=== PATIENT | female | born 1945 | race Caucasian/White ===

== ENCOUNTER → 2017-07-02 11:00 | Outpatient (CLI) | payer MEDICARE, OTHER, SELFPAY ==
[2017-07-02 09:49] LABS: Anion Gap 7 (5-15); BUN 16 mg/dL (7-18); BUN/Creat Ratio 22.3 RATIO (10-20); Calcium,Total 8.7 mg/dL (8.5-10.1); Chloride 111 mmol/L (98-107); Cholesterol 219 mg/dL (200); Creatinine, Serum 0.72 mg/dL (0.55-1.02); EST Glomerular Filtration Rate 85 mL/min (>60); Est Glom Filt Rate - Afr Amer 103 mL/min (>60); Glucose 95 mg/dL (74-106); High Density Lipoprotein 85 mg/dL; Sodium Level 145 mmol/L (136-145); Triglycerides 72 mg/dL; Very Low Density Lipoprotein 14 mg/dL (5-40)
== END ==
PROVIDERS: Family Provider Family Medicine; PCP Family Medicine; Visit Provider Family Medicine
DX: I10 Essential (primary) hypertension (principal)
CPT/HCPCS: 36415; 80048; 80061

== ENCOUNTER 2017-07-04 13:30 | Outpatient (RCR) | payer MEDICARE, OTHER, SELFPAY ==
--- NOTE | 2017-04-28 15:34 | HP.PTEVAL_ITS ---
Patient's Visit Information ABIEL HILL is a 72 year old F referred to Physical Therapy by Nj Meraz with a diagnosis of R knee pain. Date of Evaluation: 04/26/17 Physical Therapist: Bolivar Rutherford - Visit Plan Frequency: 2x /Week Duration: 4 Weeks Plan: Start with US to medial compartment of knee, HS stretching, light joint mobs into ext. OKC strengthening of quad,glute med, core, HS. Progress to CKC as tolerated. - Subjective Subjective: Pt. is here today for her initial evaluation with diagnosis of R knee pain. She is a plesant 72 y.o. female who reports having increased R knee pain with no mechanism of injury, starting a couple a months ago. She was put on an anti inflammatory which has been helping. Pt. denies N/T in the RLE and no issues at night. Pt. reports increased pain with stairs, walking, and standing in irena positioning for longer periods of time. Increased pain: walking , standing, stairs, being knee, all weight bearing activities. Decrease pain: sitting, offloading, icing, injection. Pt. has had xray- showing moderate degeneration throughout medial and patellofemoral compartments. Pt. has had her L knee replaced and is trying to avoid having to do the same on the R side. She has not trialed any exercises as of yet, but did recieve a recent injection. She is hopeful to reduce symptoms in order to get back to activities with grandchildren and recreational walking without issues. - Pain R knee Pain Intensity (Out of 10): 0 Pain Intensity Range: 2 - Objective POSTURE: Pt. lacks R knee TKE in stance. Pt. has slight increase in R knee valgum in stance. Pt. has increased L wt. shift in stance. Pt. has normal iliac crest heights. PALPATION: Pt. has slight increase in medial joint line pain to palpation, none at lateral joint line. Pt. has slight pain at medial popliteal fossa and superior to patella. NEUROLOGICAL: Pt. has normal sensation to light and sharp touch of bilateral LEs. Pt. has 2+ achilles and patellar DTR bilaterally. PT. is able to rise on heels and toes without visible weakness, but does to HR to stabilize. ROM: R knee: 0-10-122deg. L knee 0-0-128deg. Pt. has slight pain with over pressure in flexion and extension of R knee. Pt. has firm end feel. Pt. has tight HS bilaterally 78deg on L and 73deg on R. MMT: LLE - ankle 5/5 throughout; knee- ext 5-/5, flexion 4+/5; hip- flexion 4/5, abd 4/5 , ext 4/5. RLE- ankle 5/5 throughout; knee- ext 4+/5, flexion 4/5; hip- flexion 4/5, abd 4/5, ext 4/5. Core strength- poor. GAIT: Pt. lacks TKE on RLE during stance phase. Pt. has normal knee flexion throughout cycle. Pt. has increased L lateral lean during gait. Pt. has slight R sided antalgic pattern. STAIRS: Pt is able to negotiate with step to pattern with loading LLE with HR, increased pain with loading RLE. - Special Tests R Knee Yung - Meniscus: Negative R Knee Michela - ACL: Negative R Knee Anterior Drawer - ACL: Negative R Knee Posterior Drawer - PCL: Negative R Knee Valgus - MCL: Negative R Knee Varus - LCL: Negative R Knee Patellar Grind - PFS: Positive - Goals Goal 1:: Pt. to be I with HEP. Goal Time Frame: 4-6 Weeks Goal 2:: Pt. to have increased R knee ROM to 0-0-120deg allowing for increased tolerance to all functional mobility. Goal Time Frame: 4-6 Weeks Goal 3:: Pt. to have 0-2/10 pain with all functional mobility allowing for increased quality of life. Goal Time Frame: 4-6 Weeks Goal 4:: Pt. to have increased RLE strength by 1/2 grade of all effected musculature reducing stress applied to R knee with all functional mobility. Goal Time Frame: 4-6 Weeks Goal 5:: Pt. to negotiate steps with reciprocal pattern with 1 HR with 0-1/10 pain allowing for increased independence in home. Goal Time Frame: 4-6 Weeks - Rehabilitation Potential Physical Therapy Diagnosis: Pt. has signs and symptoms consistent with R knee with most likely OA being the cause. Pt. has hypomobity, weakness, and difficulty with gait secondary to R knee pain. She would benefit from PT to increase ROM, improve strength and decrease pain allowing for increased tolerance to all functional mobility. Rehabilitation Potential: Good - Anticipated Interventions Patient/Client Instruction: Educate patient on: Condition, Plan of Care, Risk Factors, Benefits of Fitness Program For the Purpose of:: To improve safety, To improve health and function, To foster healthy habits, To improve decision making, To facilitate caregiver knowledge, To improve self management, To prevent re-injury, To improve ability to perform tasks related to life management, To improve tolerance to ADL's Therapeutic Exercise to Include: Strength training, Power training, Endurance training, Balance training, Body mechanics, Postural training, Flexibilty training, Gait and locomotor training, Passive ROM, Active ROM For the Purpose of:: To decrease pain, To increase ROM, To improve nutrient delivery to tissue, To increase oxygenation perfusion, To improve muscle performance and motor function, To improve ability to perform ADL's, To improve performance and independence with ADL's IF ES: Yes Cryotherapy (ice pack, ice massage): Yes Thermo therapy (hot pack): Yes Ultrasound (thermal/non thermal): Yes For the Purpose of:: To decrease pain, To decrease swelling/inflammation, To increase ROM Thank you for the opportunity to evaluate your patient. For Medicare and Medicare HMO plans, please review the plan of care and approve it. It will need to be FAXED BACK to us at [phone] for Medicare purposes. Please let me know if there are questions or concerns regarding this plan of care. Physician Signature: Date:
--- NOTE | 2017-05-30 07:47 | HP.PTREVAL_ITS ---
Nj Meraz, It has been my pleasure to treat ABIEL HILL over the last 8 visits for R knee pain. Please see the progress note below for an update on the physical therapy plan of care! Subjective: Pt. reports I am feeling really good right now, I think the pool really helped out. Pt. reports she is getting comfortable with pool exercises , but is not totally independent with them. Pt. reports decreased pain while working and walking as well. Objective/Function: ROM- 0-0-119deg improving. MMT- RLE- ankle 5/5 throughout; knee- ext 5-/5, flexion 4+/5; hip- flexion 4+/5, abd 4/5, ext 4+/5. GAIT: Pt. has improved pattern, symmetrical step length, decreased R lateral lean during R stance phase. Pt. has improved heel strike with initial contact and has TKE during stance phase. STAIRS: Pt. is able to complete with 1 HR with reciprocal pattern, mild increased NW with descending during R stance phase- improved overall. Plan Plan: Pt. to have 3-4 move visits in pool to complete independence with current program, but alos show her how to progress exercises once able to, allowing for increase progression once done with PT. Goals Goal 1:: Pt. to be I with HEP. Goal Time Frame: 4-6 Weeks Goal Progress: Progressing Goal 2:: Pt. to have increased R knee ROM to 0-0-120deg allowing for increased tolerance to all functional mobility. Goal Time Frame: 4-6 Weeks Goal Progress: Progressing Goal 3:: Pt. to have 0-2/10 pain with all functional mobility allowing for increased quality of life. Goal Time Frame: 4-6 Weeks Goal Progress: Progressing Goal 4:: Pt. to have increased RLE strength by 1/2 grade of all effected musculature reducing stress applied to R knee with all functional mobility. Goal Time Frame: 4-6 Weeks Goal Progress: Progressing Goal 5:: Pt. to negotiate steps with reciprocal pattern with 1 HR with 0-1/10 pain allowing for increased independence in home. Goal Time Frame: 4-6 Weeks Goal Progress: Progressing Anticipated Interventions Patient/Client Instruction: Educate patient on: Condition, Plan of Care, Risk Factors, Benefits of Fitness Program For the Purpose of:: To improve safety, To improve health and function, To foster healthy habits, To improve decision making, To facilitate caregiver knowledge, To improve self management, To prevent re-injury, To improve ability to perform tasks related to life management, To improve tolerance to ADL's Therapeutic Exercise to Include: Strength training, Power training, Endurance training, Balance training, Body mechanics, Postural training, Flexibilty training, Gait and locomotor training, Passive ROM, Active ROM For the Purpose of:: To decrease pain, To increase ROM, To improve nutrient delivery to tissue, To increase oxygenation perfusion, To improve muscle performance and motor function, To improve ability to perform ADL's, To improve performance and independence with ADL's IF ES: Yes Cryotherapy (ice pack, ice massage): Yes Thermo therapy (hot pack): Yes Ultrasound (thermal/non thermal): Yes For the Purpose of:: To decrease pain, To decrease swelling/inflammation, To increase ROM Please do not hesitate to contact me at [phone] by phone or Fax: if you have questions or concerns regarding this new plan of care! Sincerely, Bolivar Rutherford
--- NOTE | 2017-07-05 11:36 | HP.PTDCSUM ---
HP - PT D/C Summary It has been my pleasure to treat ABIEL HILL under orders from Nj Meraz, for the diagnosis of R knee pain for a total of 13 visit(s). Discharge Date: 07/04/17 Please see the following information for a summary of their discharge status. - Subjective Subjective: Pt. reports I am doing really well. Pt. reports being 95% better. She is compliant with her HEP in pool without issues. - Pain R knee Pain Intensity (Out of 10): 0 - Overall Improvement % Improvement: 95 - Objective Objective/Function: ROM- R knee 0-2-124deg. Mild increase in symptoms with end range ext over pressure. MMT- RLE- ankle 5/5 throughout; knee- ext 5-/5, flexion 5-/5; hip- flexion 5-/5, abd 4/+/5, ext 5-/5. GAIT: Pt. ambulates without AD without LOB. Pt. has lack of TKE during stance phase on RLE, but has normal knee flexion during swing phase of gait. STAIRS: Pt is able to negotiate with 1 HR without LOB and reciprocal pattern, but does have a little hip hike on R side with R loaded phase during descending. No pain noted. Pt. is independent with current HEP on land and pool. Pt. is pleased with PT. - Goals Goal 1:: Pt. to be I with HEP. Goal Progress: Goal Met Goal 2:: Pt. to have increased R knee ROM to 0-0-120deg allowing for increased tolerance to all functional mobility. Goal Progress: Goal Met Goal 3:: Pt. to have 0-2/10 pain with all functional mobility allowing for increased quality of life. Goal Progress: Goal Met Goal 4:: Pt. to have increased RLE strength by 1/2 grade of all effected musculature reducing stress applied to R knee with all functional mobility. Goal Progress: Goal Met Goal 5:: Pt. to negotiate steps with reciprocal pattern with 1 HR with 0-1/10 pain allowing for increased independence in home. Goal Progress: Goal Met - Plan Plan: Pt. to be DC to HEP both land and pool at this point in time. - D/C Information Discharge Comments: Pt. will be DC from PT at this point in time. Pt. has met all goals and has progressed very well. She did much better with aquatic therapy compared to land PT. 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 Pt. to complete HEP on own, as she is independent in pool. Pt. will be DC to HEP and back to primary care physician at this point in time. If there are questions or concerns regarding this patient's physical therapy, please feel free to call me at [phone]. Thank you for the referral of this patient. Sincerely, Bolivar Rutherford
== END 2017-07-04 19:00 | disposition home or self-care (01) ==
LOC: PT 13:30
PROVIDERS: Family Provider Family Medicine; PCP Family Medicine; Visit Provider Family Medicine
DX: M25.561 Pain in right knee (principal)
CPT/HCPCS: 97035; 97110; 97113; 97161; 97530

== ENCOUNTER 2017-07-27 18:27 | Emergency (ER) | payer MEDICARE, OTHER, SELFPAY ==
[2017-07-27 18:28] VITALS: BP 150/90; PULSE 59; RESP 16; TEMP 35.8; O2SAT 98; BMI 32.1
--- NOTE | 2017-07-27 19:29 | CT_ITS ---
STUDY: CT CERVICAL SPINE WITHOUT CONTRAST REASON FOR EXAM: Female, 72 years old. Fall. RADIATION DOSAGE (If Supplied By Facility): CTDIvol = ( 19.08 ) mGy, DLP = ( 372.78 ) mGycm TECHNIQUE: High resolution transaxial imaging was performed without contrast material. Sagittal and coronal images were reconstructed. Individualized dose optimization techniques were used for this CT. COMPARISON: None FINDINGS: No definite acute fracture/dislocation. The cervical junction is intact. C1-C2 articulation is intact. Reversal of curvature. There is normal alignment. Facet joints are intact at all levels bilaterally. No jumped facets. Multilevel degenerative disc disease seen. Multilevel loss of disc height. Multilevel anterior and posterior marginal osteophytes and disc bulges. Multilevel neural foraminal narrowing. Findings especially prominent at C5-C6 and C6-C7. Visualized paraspinal soft tissues and structures are unremarkable. CT/Spine Cervical without Contras IMPRESSION: There is no definite acute fracture/dislocation. Degenerative changes. Electronically Signed: Mk Rodriguez MD at 20:19 EDT , Service support ,
--- NOTE | 2017-07-27 19:29 | CT_ITS ---
STUDY: CT BRAIN WITHOUT CONTRAST REASON FOR EXAM: Female, 72 years old. Fall at home. Hit head. Dizziness. RADIATION DOSAGE (If Supplied By Facility): CTDIvol = ( 44.99 ) mGy, DLP = ( 745.49 ) mGycm TECHNIQUE: Transaxial CT imaging of the brain was performed without administration of intravenous contrast material. Individualized dose optimization techniques were used for this CT. COMPARISON: 05/09/2007. FINDINGS: Normal soft tissue structures. Normal calvarium. Normal size ventricles and extra-axial spaces for the patient's age. Normal white matter tracts of the cerebral hemispheres. Normal basal ganglia and thalami. Normal brainstem. Normal cerebellum. There is no intracranial hemorrhage. There are no findings of an acute ischemic infarction. Normal visualized paranasal sinuses. CT/Brain/Head without Contrast IMPRESSION: Normal unenhanced CT scan of the brain. Electronically Signed: Mk Rodriguez MD at 20:21 EDT , Service support ,
--- NOTE | 2017-07-27 19:46 | RAD_ITS ---
STUDY: X-RAY - RIGHT SHOULDER REASON FOR EXAM: Female, 72 years old. Fall. Pain. TECHNIQUE: 5 view(s) of the shoulder. COMPARISON: None. FINDINGS: Normal glenohumeral articulation. Normal acromioclavicular joint. Normal acromion. Normal humeral head and visualized proximal humerus. The soft tissue structures are unremarkable. There is no demonstrated fracture. Normal visualized pulmonary apex. RAD/Shoulder min 2 Views IMPRESSION: Normal x-ray examination of the shoulder. Electronically Signed: Mk Rodriguez MD at 20:27 EDT , Service support ,
[2017-07-27] MEDS: Diphth,Pertuss(Acell),Tet Vac 0.5 ML Vial IM (20:05)
[2017-07-27 20:47] VITALS: BP 131/83; PULSE 58; RESP 16; O2SAT 98
--- NOTE | 2017-07-27 21:05 | ED.VISSUMM ---
- ER Visit Summary Date of Service: 07/27/17 Chief Complaint: Fall with head injury History of Present Illness: The patient is a 72 F presenting for evaluation secondary to a fall and head injury. Patient states that she was putting in solar powered walkway lites today, she was trying to push one down into the ground a little bit further, it snapped and she fell onto her head. Patient denies that there was loss of consciousness. She complains of pain over the right side of her head and her right shoulder. She is not on any sort of anticoagulants. Patient states that her tetanus status is unknown. Physical Examination: Primary survey: Airway is patent, breath sounds equal bilateral, central peripheral pulses 2+ and symmetric, GCS 15 out of 15. Vitals within normal limits. Secondary survey: General: Well-nourished well-developed no acute distress Head: Normocephalic abrasions noted over the right eyebrow and temporal region without any evidence of laceration Eyes: PERRLA, EOMI ENT: TMs clear no hemotympanum no drainage Neck: Nontender full range of motion, no step-offs noted Heart: Regular rate and rhythm no murmurs Lungs: Respirations nondistressed, lung sounds clear to auscultation bilaterally, chest nontender, normal chest excursion bilaterally Abdomen: Soft nontender nondistended normal bowel sounds no palpable abdominal masses Back: Nontender no step-offs noted Extremities: Pain with palpation and range of motion of the right shoulder. No evidence of step-offs deformity or crepitus. Normal distal pulses normal distal sensation Skin: Normal color no trauma Neuro: Alert and oriented ?4, GCS 15 out of 15, no lateralizing neurological deficits. Test Results: CT head negative, CT cervical spine negative, x-ray right shoulder negative Emergency Department Course and Treatment: Patient presented secondary to a mechanical fall. Primary and secondary surveys showed only head injury and shoulder injury. Radiographs found to be negative. Patient's wounds were cleansed, her tetanus status was updated. There is no indication for suture repair at this time. Patient was discharged with conservative management. Disposition: Discharge Impression: 1. Right temporal abrasion 2. Right shoulder contusion This note was generated with [employer] dictation software. It may contain incorrect words, spelling, and punctuation that were not noted in review of the chart prior to signing ED Disposition - Plan for ED Patient: Disposition: Home or Assisted Living Chief Complaint: Fall Diagnosis: Fall Instructions: ED Mechanical Fall Referrals: Nj Meraz MD [Primary Care Provider] - As Needed
== END 2017-07-27 21:31 | disposition home or self-care (01) ==
PROVIDERS: Emergency Provider Emergency Medicine; Family Provider Family Medicine; PCP Family Medicine
DX: S00.81XA Abrasion of other part of head, initial encounter (principal); S40.011A Contusion of right shoulder, initial encounter; W19.XXXA Unspecified fall, initial encounter; Y93.H2 Activity, gardening and landscaping; Y92.9 Unspecified place or not applicable; Y99.9 Unspecified external cause status; Z79.899 Other long term (current) drug therapy; Z23 Encounter for immunization
CPT/HCPCS: 70450; 72125; 73030; 90715; 99282

== ENCOUNTER 2018-05-27 16:03 | Emergency (ER) | payer MEDICARE, OTHER, SELFPAY ==
[2018-05-27 16:05] VITALS: BP 139/84; PULSE 70; RESP 16; TEMP 36.2; O2SAT 95; BMI 32.3
--- NOTE | 2018-05-27 17:22 | CT_ITS ---
STUDY: CT ABDOMEN AND PELVIS WITH CONTRAST REASON FOR EXAM: Female, 73 years old. Nausea and vomiting and diarrhea RADIATION DOSAGE (If Supplied By Facility): CTDIvol = ( 17.84 ) mGy, DLP = ( 1135.50 ) mGycm TECHNIQUE: Transaxial images were obtained from the dome of the diaphragm to the symphysis pubis without oral contrast. 100 ml of Isovue 300 contrast was administered. Sagittal and coronal images were reconstructed. Individualized dose optimization techniques were used for this CT. COMPARISON: February 26, 2016 FINDINGS: There is mild diffuse interstitial thickening and atelectasis within the dependent portion of both lungs.. The visualized portions of the heart are within normal limits. Normal liver. Normal gallbladder and extrahepatic biliary system. Normal spleen. Normal pancreas. Normal bilateral adrenal glands. No evidence for renal obstruction or ureteral calculus. Tiny simple cortical cyst in left kidney. Normal visualized stomach. Normal small intestine. Mild diverticular changes in the sigmoid colon without evidence for acute diverticulitis. Appendix not visualized which may be consistent with prior appendectomy. Atherosclerotic changes of the aorta without evidence for aneurysm.. Normal inferior vena cava. Normal retroperitoneum. Normal urinary bladder. There is a fluid-filled density in the right groin possibly representing lymphocele or resorbing seroma. This has decreased in size since prior exam. Tiny fat-containing umbilical hernia. Lumbar spine demonstrates mild spondylosis. Grade 1 spondylolisthesis at L5-S1 CT/Abdomen/Pelvis WITH Contrast IMPRESSION: No acute abnormalities. Specifically, no evidence for small bowel obstruction Mild diverticular changes in the sigmoid colon without evidence for acute diverticulitis Electronically Signed: Ang Figueroa MD at 20:24 EST , Service support ,
--- NOTE | 2018-05-27 17:23 | ED.VISSUMM ---
- ER Visit Summary Date of Service: 05/27/18 Chief Complaint: Abdominal pain History of Present Illness: The patient is a 73 F presenting with abdominal pain. Patient states that this started on Saturday. She initially had nausea, vomiting, diarrhea. She denies blood in her stool or emesis. She states the vomiting and diarrhea has slowed down but she continues to not feel well and has had abdominal pain. She has chills with no fever. She was seen by her primary care physician today and sent to the ED for further evaluation. Physical Examination: Vitals are stable. Patient is afebrile. Alert no acute distress. HEENT exam is unremarkable. Neck is supple. Lungs are clear and equal bilaterally. Heart is regular rate and rhythm. Abdomen is soft right lower quadrant tenderness with no rebound or guarding Extremities are unremarkable. Skin is warm and dry. No focal neurologic deficit. Remainder of exam is unremarkable. Emergency Department Course and Treatment: Patient was given IV fluids, Zofran. CBC, chemistries unremarkable. Liver lipase are normal. Urinalysis unremarkable. CT abdomen pelvis shows no acute abnormalities. Specifically, no evidence for small bowel obstruction. Mild diverticular changes in the sigmoid colon without evidence for acute diverticulitis. On reevaluation, patient is feeling improved. Repeat abdominal exam is soft and nontender with no rebound or guarding. She is given prescription for Zofran. She is able to tolerate p.o. in the emergency department. She will follow-up with her primary care physician. She is advised signs and symptoms for which to return to the ED. Disposition: Discharge home Impression: Abdominal pain; vomiting diarrhea This note was generated with [employer] dictation software. It may contain incorrect words, spelling, and punctuation that were not noted in review of the chart prior to signing ED Disposition - Plan for ED Patient: Chief Complaint: Nausea/Vomiting/Diarrhea Instructions: ED Vomiting Diarrhea Nonspecific Ad Prescriptions: Ondansetron [Zofran Odt] 4 mg PO Q8H PRN PRN #10 tablet PRN Reason: Nausea Referrals: Nj Meraz MD [Primary Care Provider] -
[2018-05-27] MEDS: Ondansetron 4 MG/2 ML Vial IV (17:50)
[2018-05-27 17:55] VITALS: BP 132/73; PULSE 56; RESP 16; TEMP 36.3; O2SAT 94
[2018-05-27 18:03] LABS: Bacteria 0 SEEN /hpf (None Seen); Mucous, Urine 0 SEEN /hpf (<or=2+); Red Blood Cells-Urine 0 SEEN /hpf (0-5)
[2018-05-27 18:07] LABS: Absolute Lymphocyte Count 1.61 X10^3/ul (0.83-4.51); Absolute Neutrophil Count 2.5 X10^3/uL (2.0-7.7); Basophil# 0.01 X10^3/uL; Basophil% 0.2 % (0-1); Hematocrit 40.7 % (37-47); Lymphocyte # 1.61 X10^3/ul (4.0); Lymphocyte % 32.5 % (19-41); Mean Corp Hgb Conc 31.9 g/gl (32-36); Mean Corpuscular Hgb 28.6 pg (27.0-32.0); Mean Corpuscular Volume 89.5 fL (81-99); Mean Platelet Vol. 9.9 fl (6.2-12.0); Monocyte# 0.59 X10^3/uL; Monocyte% 11.9 % (0-10); Neutrophil # 2.53 X10^3/uL (2.7-7.7); Neutrophil % 51.2 % (47-70); Platelet Count 208 K/mm3 (150-450); RBC Distribution Width CV 13.9 % (11.6-14.6); RBC Distribution Width SD 45.5 fl (35.1-43.9); Red Blood Count 4.55 M/mm3 (4.2-5.4)
[2018-05-27 18:10] LABS: POSITIVE COUNT NO; POSITIVE DIFFERENTIAL NO; POSITIVE MORPHOLOGY NO
[2018-05-27 18:14] LABS: Color, Urine Yellow (Yellow); Glucose, Dipstick Normal (Normal); Ketone-Dipstick Negative (Negative); Leukocyte Esterase-Dipstick 100 /ul (Negative); Nitrite-Dipstick Negative (Negative); Occult Blood-Urine Negative /ul (Negative); Protein-Dipstick 15 mg/dl (Negative); Specific Gravity, Urine 1.025 (1.002-1.030); Urine Bilirubin Dipstick Negative (Negative); Urine Clarity Clear (Clear); Urine Urobilinogen 1 mg/dl (Normal)
[2018-05-27 18:23] LABS: Calcium Oxalate Crystals Ur 1+ /hpf (<or=2+); Squamous Epithelial Cells - UA 0-5 SEEN /hpf (5-10); White Blood Cells 0-5 SEEN /hpf (0-5)
[2018-05-27 18:29] LABS: AST(SGOT) 18 U/L (15-37); Alanine Aminotransfer ALT/SGPT 23 U/L (13-56); Albumin, Serum 3.5 g/dL (3.2-5.0); Alkaline Phosphatase 78 U/L (45-117); Anion Gap 5 (5-15); BUN 14 mg/dL (7-18); BUN/Creat Ratio 17.5 RATIO (10-20); Chloride 108 mmol/L (98-107); EST Glomerular Filtration Rate 75 mL/min (>60); Est Glom Filt Rate - Afr Amer 91 mL/min (>60); Estimated Creatinine Clearance 61.81 ml/min; Globulin 3.5 g/dL (2.2-4.2); Glucose 94 mg/dL (74-106); Lipase 127 U/L (73-393); Potassium 4.1 mmol/L (3.5-5.1); Sodium Level 141 mmol/L (136-145)
[2018-05-27 20:59] VITALS: BP 136/94; PULSE 64; RESP 14; O2SAT 95
--- NOTE | 2018-05-27 21:41 | ED.DEP ---
ED Disposition - Plan for ED Patient: Chief Complaint: Nausea/Vomiting/Diarrhea Instructions: ED Vomiting Diarrhea Nonspecific Ad Prescriptions: Ondansetron [Zofran Odt] 4 mg PO Q8H PRN PRN #10 tablet PRN Reason: Nausea Referrals: Nj Meraz MD [Primary Care Provider] -
[2018-05-27 22:01] VITALS: BP 128/86; PULSE 69; RESP 14; O2SAT 98
== END 2018-05-27 22:07 | disposition home or self-care (01) ==
LOC: ED 17:41
PROVIDERS: Emergency Provider Emergency Medicine; Family Provider Family Medicine; PCP Family Medicine
DX: R10.9 Unspecified abdominal pain (principal); R11.2 Nausea with vomiting, unspecified; R19.7 Diarrhea, unspecified; I10 Essential (primary) hypertension; K21.9 Gastro-esophageal reflux disease without esophagitis; Z79.899 Other long term (current) drug therapy
CPT/HCPCS: 74177; 80053; 81001; 83690; 85025; 96361; 96374; 99283; J7030; J7040; Q9967; A4216; J2405

== ENCOUNTER → 2018-08-21 13:53 | Outpatient (CLI) | payer MEDICARE, OTHER, SELFPAY ==
--- NOTE | 2018-08-21 14:02 | BI_ITS ---
MAMMOGRAPHY - BILATERAL SCREENING 3-D TOMOSYNTHESIS REASON FOR EXAM: Female, 73 years old. Bilateral Screening 3-D tomosynthesis PERTINENT HISTORY: No significant family history. TECHNIQUE: 2-D mammograms and 3-D Tomosynthesis of the breast (s) were performed. CAD was performed. COMPARISON: 2016 FINDINGS: The breast composition is composed of scattered fibroglandular density. Scattered benign calcifications are seen. No dense spiculated masses or suspicious microcalcifications are identified. No architectural distortion is identified. There is no skin thickening or retraction. There has been no significant change since the prior study. BI/SCREENING MAMM (CAD), BILAT IMPRESSION: No mammographic signs of malignancy. Routine yearly mammograms recommended. ASSESSMENT CATEGORY: BIRADS Category 2: Benign. A letter regarding these results will be sent to the patient by the facility within 30 days. FOLLOW UP RECOMMENDATION: Yearly follow up mammogram recommended. (A) Approximately 10% of breast cancers are not detected by mammography. A normal mammogram should not delay biopsy of a clinically suspicious abnormality. Electronically Signed: Kwan Betts MD at 7:52 EDT , Service support ,
--- NOTE | 2018-08-21 14:20 | BD_ITS ---
STUDY: DUAL ENERGY X-RAY ABSORPTIOMETRY / DXA REASON FOR EXAM: Female, 73 years old. The patient is postmenopausal. Loss of height. TECHNIQUE: Bone Mineral Density (BMD) measurements of lumbar spine and bilateral hips were obtained. COMPARISON: Comparison is made with prior study dated October 19, 2010. FINDINGS: Lumbar Spine (L1-L4): g/cm2 (0.952) / T-score (-1.8) / Z-score (-0.1) Findings are suggestive of osteopenia with a moderate fracture risk. Left Femur Total: g/cm2 (0.872) / T-score (-1.1) / Z-score (0.5) Left Femoral Neck: g/cm2 (0.792) / T-score (-1.8) / Z-score (0.0) Right Femur Total: g/cm2 (0.823) / T-score (-1.5) / Z-score (0.1) Right Femoral Neck: g/cm2 (0.764) / T-score (-2.0) / Z-score (-0.2) The T-Scores on the most recent prior examination were: Lumbar Spine (L1-L4): There has been improvement of bone density since the previous examination. Left Femur Total: which represents an improvement of 4.3%. Right Femur Total: which represents an improvement of 3%. BD/Dexa Bone Density Study IMPRESSION: The patient is considered osteopenic as outlined below according to World Arnel Organization (WHO) criteria with a moderate fracture risk. There has been improvement of bone density since the previous examination. Reference Information: The T-score is the number of standard deviations above or below the standard which is normal for young adults at their peak bone mineral density. The World Health Organization (WHO) interprets the T-scores as follows: Above -1 Normal bone density Between -1 and -2.5 Osteopenia Equal to / or below -2.5 Osteoporosis As a practical clinical guideline, osteopenia may be graded as follows: Mild -1 through -1.5 Moderate -1.6 through -2.0 Severe -2.1 through -2.4 The Z-score is the number of standard deviations above or below age-matched controls. A Z-score of less than -1.5 would be considered abnormal. References: 1. NIH Osteoporosis and Related Bone Diseases http://www.osteo.org 2. International Society for Clinical Densitometry http://www.iscd.org 3. National Osteoporosis Foundation http://www.nof.org Electronically Signed: Eliazar Dubon, at 14:44 EDT , Service support ,
== END ==
PROVIDERS: Family Provider Family Medicine; PCP Family Medicine; Referring Provider Family Medicine; Visit Provider Family Medicine
DX: Z12.31 Encounter for screening mammogram for malignant neoplasm of breast (principal); Z78.0 Asymptomatic menopausal state
CPT/HCPCS: 77063; 77067; 77080

== ENCOUNTER 2018-10-08 09:44 | Emergency (ER) | payer MEDICARE, OTHER, SELFPAY ==
[2018-10-08 09:47] VITALS: BP 139/72; PULSE 63; RESP 16; TEMP 37; O2SAT 96; BMI 31.8
--- NOTE | 2018-10-08 10:19 | CT_ITS ---
STUDY: CT ABDOMEN AND PELVIS WITH CONTRAST REASON FOR EXAM: Female, 73 years old. Left lower quadrant pain with guarding. RADIATION DOSAGE (If Supplied By Facility): CTDIvol = ( 16.61 ) mGy, DLP = ( 1035.10 ) mGycm TECHNIQUE: Transaxial images were obtained from the dome of the diaphragm to the symphysis pubis with oral contrast. 100 IV/Oral Isovue 300 was administered. Sagittal and coronal images were reconstructed. Individualized dose optimization techniques were used for this CT. COMPARISON: Comparison is made with prior study dated May 27, 2018. FINDINGS: Stable diffuse interstitial scarring and atelectasis at the lung bases. The visualized portions of the heart are within normal limits. There is decreased attenuation of the liver consistent with steatosis. Normal gallbladder and extrahepatic biliary system. Normal spleen. Normal pancreas. Normal bilateral adrenal glands. Normal right kidney. Subcentimeters cortical cyst in the upper pole of the left kidney. There is a small hiatal hernia. Normal small intestine. Moderate amount of fecal material is seen in the rectosigmoid colon. Scattered sigmoid diverticula. The appendix is visualized and appears normal. There is scattered atherosclerotic calcification of the abdominal aorta, without a demonstrated aneurysm. Normal inferior vena cava. Normal retroperitoneum. Normal urinary bladder. There is a 5 cm x 2.1 cm x 3 cm rounded fluid collection in the right inguinal region. This is essentially unchanged as compared to prior study. Normal abdominal wall. Grade 1 anterior listhesis of L5 on S1 with spondylolysis of the pars interarticularis of the L5 vertebrae. CT/Abdomen/Pelvis WITH Contrast IMPRESSION: Fatty infiltration of the liver. Scattered sigmoid diverticula. Electronically Signed: Eliazar Dubon, at 12:26 EDT , Service support ,
[2018-10-08] MEDS: Ondansetron 4 MG/2 ML Vial IV (10:26)
[2018-10-08] MEDS: Morphine 4 MG/ML Syringe IV (10:26)
[2018-10-08 10:30] VITALS: BP 74/56; PULSE 52; RESP 14; O2SAT 95
[2018-10-08 10:30] LABS: Absolute Lymphocyte Count 1.36 X10^3/ul (0.83-4.51); Absolute Neutrophil Count 2.7 X10^3/uL (2.0-7.7); Basophil# 0.02 X10^3/uL; Basophil% 0.4 % (0-1); Eosinophil# 0.17 X10^3/uL; Eosinophils% 3.7 % (0-5); Hematocrit 41.3 % (37-47); Hemoglobin 13.4 g/dl (12.0-15.0); Lymphocyte # 1.36 X10^3/ul (4.0); Lymphocyte % 29.4 % (19-41); Mean Corp Hgb Conc 32.4 g/gl (32-36); Mean Corpuscular Hgb 28.2 pg (27.0-32.0); Mean Corpuscular Volume 86.9 fL (81-99); Mean Platelet Vol. 9.9 fl (6.2-12.0); Monocyte# 0.36 X10^3/uL; Monocyte% 7.8 % (0-10); Neutrophil # 2.72 X10^3/uL (2.7-7.7); Neutrophil % 58.7 % (47-70); POSITIVE COUNT NO; POSITIVE DIFFERENTIAL NO; POSITIVE MORPHOLOGY NO; Platelet Count 244 K/mm3 (150-450); RBC Distribution Width CV 14.1 % (11.6-14.6); RBC Distribution Width SD 44.3 fl (35.1-43.9); Red Blood Count 4.75 M/mm3 (4.2-5.4); White Blood Count 4.6 K/mm3 (4.4-11.0)
[2018-10-08 10:35] VITALS: BP 110/64; PULSE 54; RESP 18; O2SAT 95
[2018-10-08 10:40] LABS: Anion Gap 3 (5-15); BUN 17 mg/dL (7-18); BUN/Creat Ratio 20.6 RATIO (10-20); Calcium,Total 9.3 mg/dL (8.5-10.1); Chloride 109 mmol/L (98-107); Creatinine, Serum 0.82 mg/dL (0.55-1.02); EST Glomerular Filtration Rate 72 mL/min (>60); Est Glom Filt Rate - Afr Amer 88 mL/min (>60); Estimated Creatinine Clearance 58.05 ml/min; Glucose 85 mg/dL (74-106); Sodium Level 139 mmol/L (136-145)
--- NOTE | 2018-10-08 10:46 | ED.VIS.GEN ---
History of Present Illness Chief Complaint: Abd Pain Detail of Chief Complaint: Left lower quadrant Informant: Patient Onset: Days Context: Sudden Onset Timing: Continuous Quality: Pain Location: Left lower quadrant Current Severity: Mild Maximum Severity: Moderate Worsened by: Palpation and movement Relieved by: Nothing Associated Symptoms: No associated symptoms Narrative: Patient is a 73-year-old woman seen by her primary care physician and sent to the ER because of concern for hernia. She reports approximate 5-day history of left lower quadrant pain. She has history of diverticulosis and diverticulitis. She does report diarrhea on Saturday. She denies melena, maroon stool or hematochezia. She denies rectal pain. She denies dysuria, frequency, urgency hematuria. She denies history of renal or ureterolithiasis. She denies vaginal bleeding. She has no history of hernia. Prior similar symptoms: No Recent Illness/Hospitalization: No Past Medical History - Allergies and Home Meds Allergies/Adverse Reactions: Allergies meperidine [From Demerol] Allergy (Verified 10/08/18 09:45) Other Primary Care Physician: Nj Meraz MD [Primary Care Provider] - Prior records reviewed: Yes - Hypertension, depression and GERD Surgical History: no surgical history Lives: Alone Smoking Status: Never smoker Alcohol: None Review of Systems General: Denies: Chills, Fever, Sweats Eyes: Denies: Visual changes - bilaterally, Blurred Vision - bilaterally, Diplopia ENT: Denies: Rhinorrhea, Sore throat Cardiovascular: Denies: Chest pain, Palpitations Respiratory: Denies: Dyspnea, Cough, Dyspnea on exertion Gastrointestinal: Reports: Abdominal pain, Nausea, Diarrhea. Denies: Vomiting, Constipation, Melena, Hematochezia, -, - Genitourinary: Denies: Dysuria, Hematuria, Frequency Musculoskeletal: Denies: Back pain, Extremity Pain Skin: Denies: Rash, Wounds Neurological: Denies: Headache, Weakness, Numbness Allergy: Denies: Uticaria, Swelling of the mouth Physical Exam Vital Signs/Narrative: Vital Signs Temp Pulse Resp BP Pulse Ox 10/08/18 10:35 54 L 18 110/64 95 10/08/18 10:30 52 L 14 74/56 L 95 10/08/18 09:47 98.6 F 63 16 139/72 H 96 Inital Vital Signs reviewed: Yes General: Well nourished, Well developed, No Acute Distress Head: Normocephalic, Atraumatic Eyes: Perrl, EOMI. Negative for: Pale conjunctiva, Scleral icterus, - ENT: Moist mucous membranes, No rhinorrhea Neck: Negative for: Supple, Nontender, No lymphadenopathy, No JVD, - Cardiovascular: Regular rate, Regular rhythm, No murmurs, Normal S1, Normal S2 Respiratory: No distress, CTA bilaterally, Chest nontender Abdomen: Soft, No masses, Tender, Guarding, Hypoactive bowel sounds. Negative for: Nontender, Nondistended, Normal bowel sounds, Rebound tenderness, Hepatomegaly, Splenomegaly, Mass, Pulsatile mass, Ventral hernia, Inguinal hernia, Umbilical hernia Rectal: Deferred Back: Nontender, Normal Inspection. Negative for: CVA tenderness Extremities: Nontender, No edema Neurological: Alert, Oriented x3, Cranial nerves II-XII grossly intact, Normal Strength, Normal Sensation Psychological: Normal affect, Normal Mood Diagnostic/Tx/Re-eval Impressions Abdomen/Pelvis CT 10/08/18 10:19 IMPRESSION: Fatty infiltration of the liver. Scattered sigmoid diverticula. Electronically Signed: Eliazar Dubon, at 12:26 EDT , Service support , 10/08/18 10:19 Abdomen/Pelvis WITH Contrast [CT] Stat Laboratory Results 10/08/18 10/08/18 10:19 10:19 WBC 4.6 RBC 4.75 Hgb 13.4 Hct 41.3 MCV 86.9 MCH 28.2 MCHC 32.4 RDW 14.1 RDW Differential 44.3 H Plt Count 244 MPV 9.9 Immature Gran % (Auto) 0.000 Neut % (Auto) 58.7 Lymph % (Auto) 29.4 [place] % (Auto) 7.8 Eos % (Auto) 3.7 Baso % (Auto) 0.4 Absolute Neuts (auto) 2.7 Absolute Lymphs (auto) 1.36 Total Counted Not Reportable Sodium 139 Potassium 4.0 Chloride 109 H Carbon Dioxide 27.0 Anion Gap 3 L BUN 17 Creatinine 0.82 Estim Creat Clear Calc 58.05 Est GFR (MDRD) Af Amer 88 Est GFR (MDRD) Non-Af 72 BUN/Creatinine Ratio 20.6 H Glucose 85 Calcium 9.3 - Rhythm Strip Rhythm Strip: Sinus Rhythm Rate: 62 Ectopy: PVC(s) - Medical Decision Making Patient sent from PCPs office because of concern for hernia. Based on patient's history, physical exam concern patient has diverticulitis. No evidence of ventral or inguinal hernia per my exam. At this point will obtain baseline blood work and CT of the abdomen and pelvis to evaluate for diverticulitis versus other causes of her left lower quadrant abdominal pain. ED Disposition - Plan for ED Patient: Disposition: Home or Assisted Living Diagnosis: Acute abdominal pain in left lower quadrant, Diverticulosis Instructions: ED Abdominal Pain Unkn Cause Referrals: Nj Meraz MD [Primary Care Provider] - As Needed
--- NOTE | 2018-10-08 10:50 | ED.DCSUM_ITS ---
History of Present Illness Chief Complaint: Abd Pain Detail of Chief Complaint: Left lower quadrant Informant: Patient Onset: Days Context: Sudden Onset Timing: Continuous Quality: Pain Location: Left lower quadrant Current Severity: Mild Maximum Severity: Moderate Worsened by: Palpation and movement Relieved by: Nothing Associated Symptoms: No associated symptoms Narrative: Patient is a 73-year-old woman seen by her primary care physician and sent to the ER because of concern for hernia. She reports approximate 5-day history of left lower quadrant pain. She has history of diverticulosis and diverticulitis. She does report diarrhea on Saturday. She denies melena, maroon stool or hematochezia. She denies rectal pain. She denies dysuria, frequency, urgency hematuria. She denies history of renal or ureterolithiasis. She denies vaginal bleeding. She has no history of hernia. Prior similar symptoms: No Recent Illness/Hospitalization: No Past Medical History - Allergies and Home Meds Allergies/Adverse Reactions: Allergies meperidine [From Demerol] Allergy (Verified 10/08/18 09:45) Other Primary Care Physician: Nj Meraz MD [Primary Care Provider] - Prior records reviewed: Yes - Hypertension, depression and GERD Surgical History: no surgical history Lives: Alone Smoking Status: Never smoker Alcohol: None Review of Systems General: Denies: Chills, Fever, Sweats Eyes: Denies: Visual changes - bilaterally, Blurred Vision - bilaterally, Diplop ia ENT: Denies: Rhinorrhea, Sore throat Cardiovascular: Denies: Chest pain, Palpitations Respiratory: Denies: Dyspnea, Cough, Dyspnea on exertion Gastrointestinal: Reports: Abdominal pain, Nausea, Diarrhea. Denies: Vomiting, Constipation, Melena, Hematochezia, -, - Genitourinary: Denies: Dysuria, Hematuria, Frequency Musculoskeletal: Denies: Back pain, Extremity Pain Skin: Denies: Rash, Wounds Neurological: Denies: Headache, Weakness, Numbness Allergy: Denies: Uticaria, Swelling of the mouth Physical Exam Vital Signs/Narrative: Vital Signs Temp Pulse Resp BP Pulse Ox 10/08/18 10:35 54 L 18 110/64 95 10/08/18 10:30 52 L 14 74/56 L 95 10/08/18 09:47 98.6 F 63 16 139/72 H 96 Inital Vital Signs reviewed: Yes General: Well nourished, Well developed, No Acute Distress Head: Normocephalic, Atraumatic Eyes: Perrl, EOMI. Negative for: Pale conjunctiva, Scleral icterus, - ENT: Moist mucous membranes, No rhinorrhea Neck: Negative for: Supple, Nontender, No lymphadenopathy, No JVD, - Cardiovascular: Regular rate, Regular rhythm, No murmurs, Normal S1, Normal S2 Respiratory: No distress, CTA bilaterally, Chest nontender Abdomen: Soft, No masses, Tender, Guarding, Hypoactive bowel sounds. Negative for: Nontender, Nondistended, Normal bowel sounds, Rebound tenderness, Hepatomegaly, Splenomegaly, Mass, Pulsatile mass, Ventral hernia, Inguinal hernia, Umbilical hernia Rectal: Deferred Back: Nontender, Normal Inspection. Negative for: CVA tenderness Extremities: Nontender, No edema Neurological: Alert, Oriented x3, Cranial nerves II-XII grossly intact, Normal Strength, Normal Sensation Psychological: Normal affect, Normal Mood Diagnostic/Tx/Re-eval Impressions Abdomen/Pelvis CT 10/08/18 10:19 IMPRESSION: Fatty infiltration of the liver. Scattered sigmoid diverticula. Electronically Signed: Eliazar Dubon, at 12:26 EDT , Service support , 10/08/18 10:19 Abdomen/Pelvis WITH Contrast [CT] Stat Laboratory Results 10/08/18 10/08/18 10:19 10:19 WBC 4.6 RBC 4.75 Hgb 13.4 Hct 41.3 MCV 86.9 MCH 28.2 MCHC 32.4 RDW 14.1 RDW Differential 44.3 H Plt Count 244 MPV 9.9 Immature Gran % (Auto) 0.000 Neut % (Auto) 58.7 Lymph % (Auto) 29.4 [place] % (Auto) 7.8 Eos % (Auto) 3.7 Baso % (Auto) 0.4 Absolute Neuts (auto) 2.7 Absolute Lymphs (auto) 1.36 Total Counted Not Reportable Sodium 139 Potassium 4.0 Chloride 109 H Carbon Dioxide 27.0 Anion Gap 3 L BUN 17 Creatinine 0.82 Estim Creat Clear Calc 58.05 Est GFR (MDRD) Af Amer 88 Est GFR (MDRD) Non-Af 72 BUN/Creatinine Ratio 20.6 H Glucose 85 Calcium 9.3 - Rhythm Strip Rhythm Strip: Sinus Rhythm Rate: 62 Ectopy: PVC(s) - Medical Decision Making Patient sent from PCPs office because of concern for hernia. Based on patient's history, physical exam concern patient has diverticulitis. No evidence of ve ntral or inguinal hernia per my exam. At this point will obtain baseline blood work and CT of the abdomen and pelvis to evaluate for diverticulitis versus other causes of her left lower quadrant abdominal pain. ED Disposition - Plan for ED Patient: Disposition: Home or Assisted Living Diagnosis: Acute abdominal pain in left lower quadrant, Diverticulosis Instructions: ED Abdominal Pain Unkn Cause Referrals: Nj Meraz MD [Primary Care Provider] - As Needed
[2018-10-08 11:23] VITALS: BP 115/65; PULSE 51; RESP 13; O2SAT 94
[2018-10-08 14:36] VITALS: RESP 18
== END 2018-10-08 15:12 | disposition home or self-care (01) ==
PROVIDERS: Emergency Provider Emergency Medicine; Family Provider Family Medicine; PCP Family Medicine
DX: R10.12 Left upper quadrant pain (principal); K57.90 Diverticulosis of intestine, part unspecified, without perforation or abscess without bleeding; I10 Essential (primary) hypertension; F32.9 Major depressive disorder, single episode, unspecified; K21.9 Gastro-esophageal reflux disease without esophagitis; Z79.899 Other long term (current) drug therapy; Z88.5 Allergy status to narcotic agent
CPT/HCPCS: 74177; 80048; 85025; 96374; 96375; 99284; Q9967; A4216; J2405

== ENCOUNTER 2019-01-05 13:41 | Inpatient (IN) | payer MEDICARE, OTHER, SELFPAY ==
[2018-12-23 13:28] VITALS: BP 118/77; PULSE 61; RESP 18; TEMP 36.6; O2SAT 96; BMI 30.4
[2018-12-23 14:48] LABS: Absolute Lymphocyte Count 1.65 X10^3/uL (0.83-4.51); Absolute Neutrophil Count 3.2 X10^3/uL (2.0-7.7); Basophil# 0.03 X10^3/uL; Basophil% 0.5 % (0-1); Eosinophils% 3.6 % (0-5); Hematocrit 38.4 % (37-47); Hemoglobin 12.3 g/dL (12.0-15.0); Lymphocyte # 1.65 X10^3/ul (4.0); Lymphocyte % 29.5 % (19-41); Mean Corpuscular Hgb 28.9 pg (27.0-32.0); Mean Corpuscular Volume 90.4 fL (81-99); Mean Platelet Vol. 10.1 fl (6.2-12.0); Monocyte# 0.48 X10^3/uL; Monocyte% 8.6 % (0-10); NRBC Flagged by Analyzer 0 % (0-5); Neutrophil # 3.21 X10^3/uL (2.7-7.7); Neutrophil % 57.4 % (47-70); Platelet Count 221 K/mm3 (150-450); RBC Distribution Width CV 14.1 % (11.6-14.6); RBC Distribution Width SD 46.9 fl (35.1-43.9); Red Blood Count 4.25 M/mm3 (4.2-5.4); White Blood Count 5.6 K/mm3 (4.4-11.0)
--- NOTE | 2018-12-23 15:02 | SDCEKG_ITS ---
Test Reason : Blood Pressure : / mmHG Vent. Rate : 060 BPM Atrial Rate : 060 BPM P-R Int : 168 ms QRS Dur : 082 ms QT Int : 394 ms P-R-T Axes : 039 006 003 degrees QTc Int : 394 ms Sinus rhythm with sinus arrhythmia with occasional Premature ventricular complexes Nonspecific T wave abnormality Abnormal ECG Confirmed by SOLITARIO VIZCAINO ([id number]), editorial assistant MARCO ANTONIO BRIGHT ([id number]) on 12/31/2018 8:21:51 AM Referred By: Juan Jose Carson Confirmed By:SOLITARIO VIZCAINO
[2018-12-23 15:20] LABS: Anion Gap 7 (5-15); BUN 20 mg/dL (7-18); BUN/Creat Ratio 23.5 RATIO (10-20); Calcium,Total 9.2 mg/dL (8.5-10.1); Chloride 110 mmol/L (98-107); Creatinine, Serum 0.85 mg/dL (0.55-1.02); EST Glomerular Filtration Rate 70 mL/min (>60); Est Glom Filt Rate - Afr Amer 84 mL/min (>60); Estimated Creatinine Clearance 58.18 ml/min; Glucose 59 mg/dL (74-106); Potassium 4.3 mmol/L (3.5-5.1); Sodium Level 144 mmol/L (136-145)
[2019-01-05] VITALS (19 sets, daily range): BP systolic 68–149; BP diastolic 43–85; PULSE 54–69; RESP 14–16; TEMP 36.1–36.9; O2SAT 94–100; BMI 30.4; BMI 31.4
[2019-01-05] MEDS: Acetaminophen 500 MG Tablet 1000 MG PO ×2 (10:35→21:01)
[2019-01-05] MEDS: Gabapentin 600 MG Tablet PO (10:36)
[2019-01-05] MEDS: Lactated Ringers 1,000 ML 75 ML IV (10:36)
[2019-01-05] MEDS: Magnesium Sulfate 4gm/100mL 4 GM/100 ML IV.SOLN. IV (10:42)
[2019-01-05 10:56] LABS: Bedside Glucose 69 mg/dL (70-110)
--- NOTE | 2019-01-05 12:20 | KNEE_PTH ---
PATIENT: ABIEL HILL LOC: [facility]3 U#:[id number] AGE/SX: 73/F ROOM: MS310 RE01/06/[address]: Dr. Juan Jose Carson DO : 1945 BED: 1 DIS: 01/07/2019 SPEC #: [id number] RECD: 01/05/19 14:34 STATUS: SHAUN RELaina #: [id number] ADORE: 01/05/19 12:[address]: Juan Jose Carson DEPT: SURGICAL PATHOLOGY RECD BY: Angel Byrne ENTERED: 01/06/19 09:28 SP TYPE: TOTAL KNEE OTHR DR: Dr. Nj Meraz MD Tissues: Knee, NOS Procedures: Decalcification bone/plaque Surgery Specimen Level IV HEADER OPERATION: ERAS, total knee replacement PRE-OP DIAGNOSIS: Unilateral primary osteoarthritis, right knee TISSUE SUBMITTED: Bone and soft tissue, right knee MICROSCOPIC DIAGNOSIS Bone and soft tissue, right knee, total knee replacement/resection: Pieces of bone with degenerative osteoarthritic changes. Fibroadipose tissue, fibroconnective tissue and reactive synovial tissue. JANNY:jarrod 01/09/19 MICROSCOPIC DESCRIPTION Slides are reviewed. GROSS DESCRIPTION Received is one container designated bone and soft tissue right knee. The specimen consists of multiple fragments of arredondo-yellow bone measuring in aggregate 11 x 10 x 3.5 cm. Also in the specimen container are multiple fragments of yellow-white soft tissue measuring in aggregate 11 x 7 x 2 cm. A number of bony fragments contain articular surfaces consistent with tibial plateau and femoral condyle and displaying prominent osteophyte formation, eburnation, and bone erosion. Chief Radiologic Technologist sections are submitted in two cassettes as follows: 1 - soft tissue, 2 - bone after decalcification. / AM:jarrod 01/06/19 TC:5 CPT: 94562, 27098
[2019-01-05] MEDS: Cefazolin 2 GM in 0.9% Normal Saline 100 ML IV (12:21)
--- NOTE | 2019-01-05 13:45 | OP.PCM_ITS ---
Report of Operation Date of Procedure: 01/05/19 Pre-Operative Diagnosis: OA right knee Post-Operative Diagnosis: same Surgery/Procedure Performed:: Right TKR Description of Surgical Findings:: Primary Surgeon/Physician: Juan Jose Carson automatic paint sprayer operator: Dedra Savage PA-C automatic paint sprayer operator: Pre-Operative Diagnosis: OA right knee Post-Operative Diagnosis: same Surgery/Procedure Performed: Right TKR Estimated Blood Loss: 25cc Specimen's Removed: bone Type of Anesthesia: spinal ASA Class: 3 Implants: [[place] Triathlon size 4 femur CR, size 5 tibia, 35 mm Patella (all components pressfit) ] Indications: Patient has severe end-stage osteoarthritis diagnosed via x-rays in the knee. They have failed all forms of conservative measures including activity modification, injections, anti-inflammatories, use of assistive device. The patient has pain that affects on a daily basis and prevents him from doing things that they enjoyed. They have elected to undergo the above procedure. The risks of the procedure were discussed at length and their questions were answered. Procedure Description: The patient was greeted in the preoperative area. The [right ] knee was then marked with a surgical marker. Patient was then taken to or [address]. They were administered a dose of antibiotics as well as tranexamic acid. Once adequate anesthesia was obtained and airway was secured to placed in supine position on the operating room table. A well-padded tourniquet was placed on the affected extremity. Leg was then prepped and draped in the usual sterile fashion from the knee down. Ioban was used on the skin. Surgical timeout was then performed and confirmed with all present. Six-inch Esmarch was used to examine the limb and tourniquet was then inflated to 250 mmHg. A longitudinal incision was then planned and carried out in the anterior aspect of the knee. The dissection was then carried the length of the incision the extensor mechanism was identified. Standard medial parapatellar arthrotomy was then performed revealing severe eburnation of bone and periarticular osteophytes. There is complete loss of cartilage especially in the medial compartment with varus alignment. Anterior fat pad was removed for visualization purposes and the anterior medial aspect of the tibia was skeletonized for exposure to the knee. The knee was then flexed the patella was inverted. Opening reamer was then used in the femur approximately 1 cm anterior to the attachment of the PCL. The intramedullary valgus wand was then placed in the femur set at 5? of valgus. The distal femoral cutting jig was then applied to the femur with anticipated resection of approximately 8 mm. This was then made with a oscillating saw. The sizing guide was then placed referencing off the posterior condyles and also reference off the epicondylar axis. This was measured and the appropriate size 4-in-1 cutting jig was then applied to the distal femur. Anterior posterior cuts were made followed by the anterior and posterior chamfer cuts. These bony pieces and fragments were removed and placed on the back table. Posterior retractor was then utilized and the tibia was subluxed anteriorly. Intramedullary tibial alignment jig was then applied to the tibia referencing off the medial one third of the tibial tubercle the anterior tibial spine the middle aspect of the tibiotalar joint. Also reference off patient's kw[place] slope. The tibial cutting jig was then pinned with anticipated resection of 2 mm off of the deficient medial tibial condyle. This cut was made with the oscillating saw. Once this was complete a laminar sheriffs was utilized in both medial lateral meniscus were removed and a posterior capsular osteophytes were also removed. Posterior capsule release was performed in the posterior capsule as well as the geniculate arteries are treated with the aqua Annette. The tibia was incised and the appropriate sized tibial tray was then pinned. The femoral trial was then placed and the knee was trialed. Full flexion-extension were easily achieved. The knee seemed to balance quite nicely. Any remaining osteophytes were removed at this time. Once this was complete the patella was everted and the Laura patella reaming device was then utilized the patella was then placed in the appropriate jig and reamer was then used to remove approximately 9 mm of the undersurface of the patella. A soft tissue remaining was in the way was removed and patella trial was then placed listed maintain excellent tracking using the no thumbs technique. The tibial tray at this point was punched to accommodate the fins of the final implant. With the knee in full extension tourniquet was deflated and hemostasis was perfect with Bovie cautery as well as the aqua Manus. The knee is once again trialed with different size polyethylenes to ensure the full range of motion was achieved as well as excellent balancing ligamentously was achieved. At this point the knee was copiously irrigated. Final implant was then inserted locking mechanism was engaged and confirmed to be locked. The arthrotomy was then closed with #1 Vicryl aggravate type fashion interrupted. Subcutaneous tissue was closed with 0 Vicryl and surgical shady were placed in the skin. A occlusive silver impregnated dressing was then applied followed by well-padded sterile dressing secured with an Ben wrap. The patient was taken to the PACU in stable condition. No complications known at this time. Postoperatively we will maintain standard total knee postoperative protocol. The use of the physician assistant professor of german was integral during this procedure. They assisted with positioning placement of the tourniquet retracting closure and placement of the dressing. The procedure would have been much more difficult without their expertise and assistance automatic paint sprayer operator: Dedra Savage Type of Anesthesia:: Spinal Anesthesiologist: Evangelist Jerez Specimen's removed: bone - Admit VTE Documentation VTE Present on Admission: No VTE Mechan Device Prophylaxis: SCD's, Thigh High KYUNG Hose VTE Pharm Prophylaxis ordered?: Yes
--- NOTE | 2019-01-05 14:48 | EKG12_ITS ---
Test Reason : POST OP Blood Pressure : / mmHG Vent. Rate : 060 BPM Atrial Rate : 060 BPM P-R Int : 162 ms QRS Dur : 088 ms QT Int : 450 ms P-R-T Axes : 064 014 003 degrees QTc Int : 450 ms Sinus rhythm with occasional Premature ventricular complexes Nonspecific ST and T wave abnormality Abnormal ECG When compared with ECG of 23-DEC-2018 13:03, Nonspecific T wave abnormality, worse in Inferior leads Confirmed by SOLITARIO VIZCAINO ([id number]), medical transcription editor MARCO ANTONIO BRIGHT ([id number]) on 01/13/2019 12:33:09 PM Referred By: Juan Jose Carson Confirmed By:SOLITARIO VIZCAINO
[2019-01-05] MEDS: Lactated Ringers 1,000 ML 999 ML IV (15:11)
[2019-01-05] MEDS: Lactated Ringers 1,000 ML 125 ML IV (17:01)
[2019-01-05] MEDS: oxyCODONE 5 MG Tablet PO ×3 (17:06→22:32)
[2019-01-05] MEDS: Aspirin 325 MG Tablet PO (17:06)
[2019-01-05] MEDS: Budesonide Respules 0.5 MG/2 ML AMPUL.NEB. INHALATION (19:41)
[2019-01-05] MEDS: Cefazolin 1 GM/50 ML BAG IV (20:33)
[2019-01-05] MEDS: Senna/Docusate Sodium 1 Tablet 2 TABLET PO (21:01)
[2019-01-06 02:40] VITALS: BP 121/71; PULSE 64; RESP 14; TEMP 36.6; O2SAT 92
[2019-01-06] MEDS: oxyCODONE 5 MG Tablet PO ×4 (03:11→17:59)
[2019-01-06] MEDS: Cefazolin 1 GM/50 ML BAG IV (05:04)
[2019-01-06] MEDS: Acetaminophen 500 MG Tablet 1000 MG PO ×3 (05:04→21:10)
[2019-01-06] MEDS: 0.9% NaCl Peripheral Flush Adult/Peds IV ×2 (05:05→07:06)
[2019-01-06 05:40] LABS: Hematocrit 34.7 % (37-47); Mean Corp Hgb Conc 31.7 g/dL (32-36); Mean Corpuscular Hgb 28.6 pg (27.0-32.0); Mean Corpuscular Volume 90.4 fL (81-99); Platelet Count 192 K/mm3 (150-450); RBC Distribution Width CV 14.8 % (11.6-14.6); RBC Distribution Width SD 49.1 fl (35.1-43.9); Red Blood Count 3.84 M/mm3 (4.2-5.4); White Blood Count 8.2 K/mm3 (4.4-11.0)
[2019-01-06 06:07] LABS: Anion Gap 5 (5-15); BUN 18 mg/dL (7-18); BUN/Creat Ratio 24.4 RATIO (10-20); Calcium,Total 8.3 mg/dL (8.5-10.1); Chloride 110 mmol/L (98-107); Creatinine, Serum 0.74 mg/dL (0.55-1.02); EST Glomerular Filtration Rate 82 mL/min (>60); Est Glom Filt Rate - Afr Amer 99 mL/min (>60); Estimated Creatinine Clearance 49.45 ml/min; Glucose 135 mg/dL (74-106); Potassium 4.2 mmol/L (3.5-5.1); Sodium Level 142 mmol/L (136-145)
[2019-01-06] MEDS: Ondansetron 4 MG/2 ML Vial IV (07:06)
[2019-01-06] MEDS: Budesonide Respules 0.5 MG/2 ML AMPUL.NEB. INHALATION ×2 (07:28→19:11)
[2019-01-06 07:29] VITALS: PULSE 62; RESP 16
--- NOTE | 2019-01-06 07:58 | PCM.PN.ORT ---
Subjective: Patient asleep in chair over breakfast. Upon awakening, she reports pain in her knee. - Physical Exam General: Alert, Oriented x3, No apparent distress Extremities: No clubbing, No cyanosis, No edema, Capillary Refill Less than 3 Seconds Skin: Incision - stable Neurological: Neuro grossly intact Vital Signs Temp Pulse Resp BP Pulse Ox 97.9 F 62 16 121/71 H 92 01/06/19 02:40 01/06/19 07:29 01/06/19 07:29 01/06/19 02:40 01/06/19 02:40 Oxygen Flow Rate (L/min) 6 Oxygen Delivery Method Room Air Weight: 201 lb 0.985 oz Body Mass Index (BMI) 31.4 Intake and Output for Last 24 Hours 01/04/19 01/05/19 01/06/19 23:59 23:59 23:59 Intake Total 2830.00 / 3815.00 2708.25 / 2708.25 Output Total 200 / 200 Balance 2830.00 / 3815.00 2508.25 / 2508.25 Laboratory Tests Past 24 Hrs 01/06/19 01/06/19 05:24 05:24 WBC 8.2 RBC 3.84 L Hgb 11.0 L Hct 34.7 L MCV 90.4 MCH 28.6 MCHC 31.7 L RDW Std Deviation 49.1 H RDW Coeff of Nancy 14.8 H Plt Count 192 MPV 10.0 Sodium 142 Potassium 4.2 Chloride 110 H Carbon Dioxide 27.0 Anion Gap 5 BUN 18 Creatinine 0.74 Estim Creat Clear Calc 49.45 Est GFR (MDRD) Af Amer 99 Est GFR (MDRD) Non-Af 82 BUN/Creatinine Ratio 24.4 H Glucose 135 H Calcium 8.3 L POC Glucose 01/05/19 10:23 POC Glucose 69 L Medical Necessity - Tobacco Use Smoking Status: Never smoker Tobacco Use: Non-smoker Assessment/Plan s/p Right TKR PT today, home this afternoon if pain controlled with P.O. meds.
--- NOTE | 2019-01-06 08:06 | DCINST_ITS ---
Discharge Diet: No Restrictions Discharge Activity: May Not Drive May shower in (days): 1 Ice area for (Minutes): 20 Weight Bearing Status: Weight bearing as tolerated Elevate: Operative Extremity Additional Activity Instructions:: Wear elastic stockings for 2 weeks after your surgery. Call your doctor if your incision/area has: Continuous Slow Oozing, Sudden Increased Bleeding, Increased Pain/ Swelling, Increased Redness, Foul Smelling Discharge Call your doctor if you observe: Fever of 101 or Higher, Coldness, Increased Pain - in extremity, Numbness or Tingling, Change in Color, Calf discomfort, Uncontrolled pain Change Dressing in (Days):: 1 - and daily as needed. Cleanse incision/area with: Soap & Water Allergies/Adverse Reactions: Allergies meperidine [From Demerol] Allergy (Verified 01/05/19 10:22) Other Medications to take at Discharge Glucosamine/MSM/Chondroitin A [Glucosamine Chondroit MSM Tab] 1 each PO DAILY 02/26/16 Levocetirizine Dihydrochloride [Xyzal] 5 mg PO DAILY 02/26/16 Lisinopril [Zestril] 10 mg PO DAILY 02/26/16 Omeprazole [Prilosec] 20 mg PO DAILY 02/26/16 Oxybutynin [Ditropan] 5 mg PO DAILY 02/26/16 Sertraline HCl [Zoloft] 50 mg PO DAILY 02/26/16 Fluticasone 110 Mcg [Flovent 110 Mcg] 2 puff INHALATION BID 12/23/18 Acetaminophen [Tylenol] 1,000 mg PO Q8 tablet 01/06/19 Aspirin 325 mg PO BIDCM tablet 01/06/19 Budesonide Aerosol [Pulmicort Respules] 0.5 mg INHALATION Q12H.RT ampul.neb. 01/06/19 Oxycodone [Oxyir] 5 - 10 mg PO Q4H PRN PRN 7 Days #90 tab 01/06/19 The following prescriptions were given: Oxycodone [Oxyir] 5 - 10 mg PO Q4H PRN PRN 7 Days #90 tab PRN Reason: Mod-Severe Pain (-02/05) Prescription Printed Primary Care Physician: Nj Meraz MD [Primary Care Provider] - Test Results: Test results from this visit will be discussed in further detail at your follow- up appointment, if applicable.
[2019-01-06] MEDS: Aspirin 325 MG Tablet PO ×2 (08:17→17:59)
[2019-01-06] MEDS: Senna/Docusate Sodium 1 Tablet 2 TABLET PO ×2 (09:58→21:10)
[2019-01-06] MEDS: Pantoprazole Sodium 20 MG Tablet PO (09:58)
[2019-01-06] MEDS: Lisinopril 10 MG Tablet PO (09:58)
[2019-01-06] MEDS: Sertraline 50 MG Tablet PO (09:58)
[2019-01-06] MEDS: Oxybutynin 5 MG Tablet PO (09:58)
[2019-01-06] MEDS: Loratadine 10 MG Tablet 5 MG PO (09:59)
[2019-01-06 10:02] VITALS: BP 105/56; PULSE 66; RESP 18; TEMP 36.5; O2SAT 95
--- NOTE | 2019-01-06 12:05 | CASEMGMT ---
RN JUANITO Face to Face with patient for initial transition planning/care coordination assessment. RN CM introduced self and role at [facility]. Patient lying in bed, alert and oriented. Patient willing to participate in assessment and is able to answer all questions appropriately. Care providers, pharmacy, and demographics verified. Patient wishes to discharge home and is setup with [employer] for outpatient therapy. Patient states she has no further needs or concerns at this time. CM to follow for discharge planning needs that may arise. PCP: Kt Specialists: Alli, ortho; Sibilia, pulmonology; Fascione, podiatry Preferred Pharmacy: [facility] Insurance: [facility] Prescription Benefit: yes Living Will/HPOA: yes, Major LNOK: , son Living Arrangements: patient lives with in 1 story home with 2 steps and railing to enter the home. Transportation: , [facility] van DME/HHC: Patient has shower chair, raised toilet, grab bars, walker. Disposition Plan: Patient to discharge home with outpatient therapy, family support, and follow-up plans in place. Hollie NAVA, RN, CM
[2019-01-06 15:46] VITALS: BP 106/72; PULSE 66; RESP 18; TEMP 36.9; O2SAT 97
[2019-01-06 19:11] VITALS: PULSE 66; RESP 16
[2019-01-06 20:29] VITALS: BP 120/61; PULSE 71; RESP 20; TEMP 37.4; O2SAT 92
[2019-01-07] MEDS: oxyCODONE 5 MG Tablet PO ×3 (00:52→13:13)
[2019-01-07 02:30] VITALS: BP 122/59; PULSE 70; RESP 18; TEMP 37; O2SAT 96
[2019-01-07] MEDS: Acetaminophen 500 MG Tablet 1000 MG PO ×2 (05:28→13:12)
[2019-01-07 06:55] VITALS: PULSE 83; RESP 18
[2019-01-07] MEDS: Budesonide Respules 0.5 MG/2 ML AMPUL.NEB. INHALATION (06:55)
[2019-01-07] MEDS: Ondansetron 4 MG/2 ML Vial IV (07:17)
[2019-01-07 08:15] VITALS: BP 114/56; PULSE 75; RESP 18; TEMP 37.1; O2SAT 94
[2019-01-07] MEDS: Aspirin 325 MG Tablet PO (08:21)
[2019-01-07] MEDS: Loratadine 10 MG Tablet 5 MG PO (08:21)
[2019-01-07] MEDS: Senna/Docusate Sodium 1 Tablet 2 TABLET PO (08:22)
[2019-01-07] MEDS: Pantoprazole Sodium 20 MG Tablet PO (08:22)
[2019-01-07] MEDS: Lisinopril 10 MG Tablet PO (08:22)
[2019-01-07] MEDS: Oxybutynin 5 MG Tablet PO (08:22)
[2019-01-07] MEDS: Sertraline 50 MG Tablet PO (08:22)
--- NOTE | 2019-01-07 10:51 | PCM.PN.ORT ---
Subjective: Patient sitting at bedside. Pain well managed. Denies chest pain, shortness breath, calf pain, nausea vomiting. Patient states she is ready for discharge home today. Patient states she will be doing [facility]. Objective: Dressing is intact there is a small amount of dried blood at the base of the dressing. This will be changed at discharge. Patient's knee is cool to touch nonerythematous. Patient has no calf pain. Patient's vitals and labs within normal limits. Patient has no respiratory distress. - Physical Exam General: Alert, Oriented x3, Cooperative HEENT: PERRLA Neurological: Cranial nerves II-XII grossly intact Psych/Mental Status: Normal Affect, Alert and oriented to time, place, person, mood and affect Vital Signs Temp Pulse Resp BP Pulse Ox 98.7 F 75 18 114/56 L 94 01/07/19 08:15 01/07/19 08:15 01/07/19 08:15 01/07/19 08:15 01/07/19 08:15 Oxygen Flow Rate (L/min) 6 Oxygen Delivery Method Room Air Weight: 91.2 kg Body Mass Index (BMI) 31.4 Intake and Output for Last 24 Hours 01/05/19 01/06/19 01/07/19 23:59 23:59 23:59 Intake Total 2830.00 / 3815.00 3348.25 / 3948.25 1000 / 1000 Output Total 850 / 1550 1850 / 1850 Balance 2830.00 / 3815.00 2498.25 / 2398.25 -850 / -850 Medical Necessity - Tobacco Use Smoking Status: Never smoker Tobacco Use: Non-smoker Assessment/Plan Status post right total knee arthroplasty Plan 1. Continue all pain medications as prescribed 2. Continue physical therapy outpatient, weight-bear as tolerated with walker. 3. Aspirin 325 mg 1 p.o. every 12 hours x30 days for postop DVT prophylaxis 4. Shower 01/08/2019 5. Discharge home today. 6. Follow-up as scheduled, see pink sheet. 7. We will change AG dressing prior to discharge.
[2019-01-07 14:00] VITALS: BP 119/62; PULSE 77; RESP 18; TEMP 37.3; O2SAT 93
== END 2019-01-07 18:15 | disposition home or self-care (01) | DRG 470 ==
LOC: MS3 15:00 → ACINP 15:09 → MS3 15:09
PROVIDERS: Admitting Provider Orthopaedic Surgery; Family Provider Family Medicine; PCP Family Medicine; Referring Provider Orthopaedic Surgery; Visit Provider Orthopaedic Surgery
PROC: 0SRC0JZ Replacement of Right Knee Joint with Synthetic Substitute, Open Approach (ICD-10-PCS; CPT 27447; principal; 2019-01-05 11:55)
DX: M17.11 Unilateral primary osteoarthritis, right knee (principal); I10 Essential (primary) hypertension; N39.3 Stress incontinence (female) (male); J45.909 Unspecified asthma, uncomplicated; K21.9 Gastro-esophageal reflux disease without esophagitis; F32.9 Major depressive disorder, single episode, unspecified; F41.9 Anxiety disorder, unspecified; Z79.899 Other long term (current) drug therapy
CPT/HCPCS: 36415; 80048; 82962; 85025; 85027; 87081; 88305; 88311; 93005; 94640; 97110; 97116; 97162; 97166; 97530; 97535; C1776; J7120; A4216; J2405

== ENCOUNTER → 2019-02-06 08:33 | Outpatient (CLI) | payer MEDICARE, OTHER, SELFPAY ==
[2019-01-05 16:35] VITALS: BMI 31.4
[2019-02-06 10:11] LABS: Absolute Lymphocyte Count 1.57 X10^3/uL (0.83-4.51); Absolute Neutrophil Count 3.8 X10^3/uL (2.0-7.7); Basophil# 0.03 X10^3/uL; Basophil% 0.5 % (0-1); Eosinophil# 0.19 X10^3/uL; Hematocrit 37.5 % (37-47); Hemoglobin 11.7 g/dL (12.0-15.0); Lymphocyte # 1.57 X10^3/ul (4.0); Lymphocyte % 25.1 % (19-41); Mean Corp Hgb Conc 31.2 g/dL (32-36); Mean Corpuscular Hgb 28.2 pg (27.0-32.0); Mean Corpuscular Volume 90.4 fL (81-99); Mean Platelet Vol. 10.3 fl (6.2-12.0); Monocyte# 0.64 X10^3/uL; Monocyte% 10.2 % (0-10); NRBC Flagged by Analyzer 0 % (0-5); Neutrophil # 3.81 X10^3/uL (2.7-7.7); Neutrophil % 60.9 % (47-70); Platelet Count 275 K/mm3 (150-450); RBC Distribution Width CV 13.9 % (11.6-14.6); RBC Distribution Width SD 46.5 fl (35.1-43.9); Red Blood Count 4.15 M/mm3 (4.2-5.4); White Blood Count 6.3 K/mm3 (4.4-11.0)
[2019-02-06 10:18] LABS: Anion Gap 5 (5-15); BUN 14 mg/dL (7-18); BUN/Creat Ratio 16.4 RATIO (10-20); Calcium,Total 9.2 mg/dL (8.5-10.1); Chloride 103 mmol/L (98-107); Creatinine, Serum 0.85 mg/dL (0.55-1.02); EST Glomerular Filtration Rate 69 mL/min (>60); Est Glom Filt Rate - Afr Amer 84 mL/min (>60); Glucose 77 mg/dL (74-106); Sodium Level 137 mmol/L (136-145)
== END ==
PROVIDERS: Family Provider Family Medicine; PCP Family Medicine; Referring Provider Physician Assistant; Visit Provider Physician Assistant
DX: Z96.651 Presence of right artificial knee joint (principal)
CPT/HCPCS: 36415; 80048; 85025

== ENCOUNTER → 2019-02-13 10:00 | Outpatient (CLI) | payer MEDICARE, OTHER, SELFPAY ==
[2019-01-05 16:35] VITALS: BMI 31.4
[2019-02-13 13:05] LABS: Free T3 2.4 pg/mL (2.18-3.98); T4 Total, Thyroxin 8.6 ug/dL (4.8-13.9); Thyroid Stim Hormone (TSH) 3.54 uIU/mL (0.358-3.74)
== END ==
PROVIDERS: Family Provider Family Medicine; PCP Family Medicine; Referring Provider Family Medicine; Visit Provider Family Medicine
DX: E03.9 Hypothyroidism, unspecified (principal)
CPT/HCPCS: 36415; 84436; 84443; 84481

== ENCOUNTER → 2019-02-19 15:08 | Outpatient (CLI) | payer MEDICARE, OTHER, SELFPAY ==
[2019-01-05 16:35] VITALS: BMI 31.4
--- NOTE | 2019-02-19 15:13 | RAD_ITS ---
STUDY: X-RAY CHEST REASON FOR EXAM: Female, 74 years old. Asthma. TECHNIQUE: PA and lateral views of the chest. COMPARISON: 08/31/2015. FINDINGS: There is mild right basilar atelectasis, remainder of the lungs are clear and expanded. There is no demonstrated pleural abnormality. Normal size heart. Normal mediastinum and sandra. Normal visualized pulmonary arteries. There is atherosclerotic calcification of the aortic arch with tortuosity. There are diffuse degenerative changes of the visualized thoracic spine. There is degenerative osteoarthritis of the bilateral shoulders. There is diffuse osteopenia. There is no demonstrated abnormality of the visualized soft tissue structures of the upper abdomen. RAD/Chest PA and Lateral IMPRESSION: Mild right basilar atelectasis, otherwise no acute cardiac pulmonary process seen. Electronically Signed: Marci Garber MD at 3:34 EDT , Service support ,
== END ==
PROVIDERS: Family Provider Family Medicine; PCP Family Medicine; Referring Provider Internal Medicine Pulmonary Disease; Visit Provider Internal Medicine Pulmonary Disease
DX: J45.909 Unspecified asthma, uncomplicated (principal)
CPT/HCPCS: 71046

== ENCOUNTER 2019-03-02 14:00 | Outpatient (RCR) | payer MEDICARE, OTHER, SELFPAY ==
[2018-12-23 13:28] VITALS: BMI 30.4
[2019-01-05 16:35] VITALS: BMI 31.4
--- NOTE | 2019-01-13 07:44 | HP.PTEVAL_ITS ---
Patient's Visit Information ABIEL HILL is a 73 year old F referred to Physical Therapy by uJan Jose Carson DO with a diagnosis of S/P R TKA. Date of Evaluation: 01/13/19 Physical Therapist: Bolivar Rutherford DPT - Visit Plan Frequency: 2-3x /Week Duration: 4-6 Weeks Plan: Start with ROM exercises, quad isometrics, gait mechanics with FWW. Add in joint mobs to allow for improved flexion, extension. 1) ROM: flexion and extension progressing to end ranges as tolerated 2.) quad/HS/glute med/core isometrics progressing to concentric 3.) walking pattern and tolerance 4.) may use ice for pain control - Subjective Findings: Pt. is here today for her initial evaluation S/P R TKA. Pt. arrives with use of FWW. DOS: 01/05/19. Pt. reports that she is doing well, but has higher levels of pain. Pt. reports doing her exercises as much as she can. Pt. reports having 3/10 pain in her R knee this date. She is wearing her compression stocking as indicated. Pt. denies chest pain, double vision, fever, chills. Also no calf pain noted. She sleeping okay without pillow underneath her knee. She is hopeful to get back to all walking and recreational activities without limitations. Pt. is eager to get back into pool exercises. I talked to her about staying out of pool until cleared by physician, pt. consents. - Pain R knee Pain Intensity (Out of 10): 3 Pain Intensity Range: 2, 6 - Objective POSTURE: Pt. has flexed posture in stance. pt. has heavy use of FWW for stabilioty and increased wt. shift to L side. PALPATION: Pt. has negative howman's sign. Pt. has normal bruising, no signs of infection. She has aquacell bandage on. She was unsure when to remove and in her paper work there was no instruction on when to remove. NEURO: normal throughout bilateral LEs. ROM: L knee 0-0-127deg. R knee 0-6-82deg. Pt. has tight bilateral HS. MMT: RLE: ankle 5/5 throughout; knee- good quad set, but unable to compelte a SLR independently this date, flexion 4-/5; hip- flexion 3-/5, abd 3-/5, ext 3-/5. Core strength- poor. GAIT: Pt. ambulated 175' with FWW with DANIEL, but has decreased step length bilaterally, decreased TKE during stance phase on RLE and decreased flexion during swing phase of RLE. STEPS: Pt. negotiated 4 steps with step to pattern with heavy use of B HR. - Goals Goal 1:: Pt. to be I with HEP. Goal Time Frame: 4-6 Weeks Goal 2:: Pt. to sleep throughout the night with 0-1/10 pain in R knee Goal Time Frame: 4-6 Weeks Goal 3:: Pt. to have increased R knee ROM to atleast 0-0-120deg without increase in symptoms. Goal Time Frame: 4-6 Weeks Goal 4:: Pt. to ambulate with normal gait pattern without AD without pain community level distances. Goal Time Frame: 4-6 Weeks Goal 5:: Pt. to have increased RLE strength by 1/2 grade of all effected musculature allowing for increased stability with all functonal mobility. Goal Time Frame: 4-6 Weeks Goal 6:: Pt. to negotiate 1 flight of steps with reciprocal pattern with 1 HR without LOB. Goal Time Frame: 4-6 Weeks - Rehabilitation Potential Physical Therapy Diagnosis: Pt. has signs and symptoms consistent with R TKA with subsequent hypombility, weakness, increased pain and difficulty with gait. Pt. would benefit from PT to work on above limitations progressing towards functional mobility as tolerated. Rehabilitation Potential: Excellent - Anticipated Interventions Patient/Client Instruction: Educate patient on: Condition, Plan of Care, Risk Factors, Benefits of Fitness Program For the Purpose of:: To facilitate caregiver knowledge, To improve self management, To prevent re-injury, To improve ability to perform tasks related to life management, To improve tolerance to ADL's Therapeutic Exercise to Include: Strength training, Power training, Endurance training, Balance training, Body mechanics, Postural training, Flexibilty training, Gait and locomotor training, Passive ROM, Active ROM For the Purpose of:: To decrease pain, To decrease swelling/inflammation, To increase ROM, To improve nutrient delivery to tissue, To increase oxygenation perfusion, To improve muscle performance and motor function, To improve ability to perform ADL's, To increase tolerance to activity/condition/position, To improve ability of physical actions for home/community/work/leisure, To improve gait and locomotor functions, To improve health of tissue, To decrease soft tissue restriction, To increase flexibility/ROM, To improve endurance, To improve balance, To improve safety with gait Cryotherapy (ice pack, ice massage): Yes Vasopneumatic device: Yes For the Purpose of:: To decrease pain, To decrease swelling/inflammation, To increase ROM, To improve nutrient delivery to tissue, To increase oxygenation perfusion Thank you for the opportunity to evaluate your patient. For Medicare and Medicare HMO plans, please review the plan of care and approve it. It will need to be FAXED BACK to us at [phone] for Medicare purposes. For Medicare only, by signing this I certify the plan of care. Please let me know if there are questions or concerns regarding this plan of care. Physician Signature: Date:
--- NOTE | 2019-02-06 09:37 | HP.PTREVAL_ITS ---
Juan Jose Carson, DO, It has been my pleasure to treat ABIEL HILL over the last 10 visits for S/P R TKA. Please see the progress note below for an update on the physical therapy plan of care! Subjective: Pt. reports I am still feeling tired, but I am doing okay. Pt. reports no new issues. Pt. to follow up with doctor tomorrow. Objective/Function: ROM: 0-0-118deg, MMT- 4/5 throughout; gait: Pt. ambulates with FWW with good pattern and not issues, but does fatigue quickly. Pt. is able to ambulate with SPC without LOB, but again fatigues rapidly. Pt. reports no increase in symptoms. Good walking pattern with good knee flexion and extension with gait. Plan Plan: Cont. to work on end ranges of motion. Low load long duration stretching. Goals Goal 1:: Pt. to be I with HEP. Goal Time Frame: 4-6 Weeks Goal Progress: Progressing Goal 2:: Pt. to sleep throughout the night with 0-1/10 pain in R knee Goal Time Frame: 4-6 Weeks Goal Progress: Goal Met Goal 3:: Pt. to have increased R knee ROM to atleast 0-0-120deg without increase in symptoms. Goal Time Frame: 4-6 Weeks Goal Progress: Progressing Goal 4:: Pt. to ambulate with normal gait pattern without AD without pain community level distances. Goal Time Frame: 4-6 Weeks Goal Progress: Progressing Goal 5:: Pt. to have increased RLE strength by 1/2 grade of all effected musculature allowing for increased stability with all functonal mobility. Goal Time Frame: 4-6 Weeks Goal Progress: Progressing Goal 6:: Pt. to negotiate 1 flight of steps with reciprocal pattern with 1 HR without LOB. Goal Time Frame: 4-6 Weeks Goal Progress: Progressing Anticipated Interventions Patient/Client Instruction: Educate patient on: Condition, Plan of Care, Risk Factors, Benefits of Fitness Program For the Purpose of:: To facilitate caregiver knowledge, To improve self management, To prevent re-injury, To improve ability to perform tasks related to life management, To improve tolerance to ADL's Therapeutic Exercise to Include: Strength training, Power training, Endurance training, Balance training, Body mechanics, Postural training, Flexibilty training, Gait and locomotor training, Passive ROM, Active ROM For the Purpose of:: To decrease pain, To decrease swelling/inflammation, To increase ROM, To improve nutrient delivery to tissue, To increase oxygenation perfusion, To improve muscle performance and motor function, To improve ability to perform ADL's, To increase tolerance to activity/condition/position, To improve ability of physical actions for home/community/work/leisure, To improve gait and locomotor functions, To improve health of tissue, To decrease soft tissue restriction, To increase flexibility/ROM, To improve endurance, To i mprove balance, To improve safety with gait Cryotherapy (ice pack, ice massage): Yes Vasopneumatic device: Yes For the Purpose of:: To decrease pain, To decrease swelling/inflammation, To increase ROM, To improve nutrient delivery to tissue, To increase oxygenation perfusion Please do not hesitate to contact me at [phone] by phone or if you have questions or concerns regarding this new plan of care! Sincerely, Bolivar Rutherford DPT
--- NOTE | 2019-03-03 07:38 | HP.PTDCSUM ---
HP - PT D/C Summary It has been my pleasure to treat ABIEL HILL under orders from Juan Jose Carson DO, for the diagnosis of S/P R TKA for a total of 17 visit(s). Discharge Date: 03/02/19 Please see the following information for a summary of their discharge status. - Subjective Subjective: Pt. reports I am 95% better. She is walking in community without AD with normal pattern. Pt. reprots being HEP compliant, no pain reported. - Pain R knee Pain Intensity (Out of 10): 0 - Overall Improvement % Improvement: 95 - Objective Objective/Function: ROM: R knee 0-0-124deg. Pt. is a little tight with extension, but able to achieve. Pt. instructed to continue with extension stretching, patient consents. MMT: 5/5 throughout; except 4+/5 with hip abd and extension. GAIT: Pt. has normal gait pattern with out AD. pt. reports no pain with gait. Pt. has good knee flexion and extension during gait. STAIRS: Pt. has reciprocal pattern with 1 HR, but does have sligth difficulty with controlled eccentric lowering, but is completing without increase in symptoms. Reviewed HEP with patient in gym. Pt. is compentent with wt. and exercises. - Goals Goal 1:: Pt. to be I with HEP. Goal Progress: Goal Met Goal 2:: Pt. to sleep throughout the night with 0-1/10 pain in R knee Goal Progress: Goal Met Goal 3:: Pt. to have increased R knee ROM to atleast 0-0-120deg without increase in symptoms. Goal Progress: Goal Met Goal 4:: Pt. to ambulate with normal gait pattern without AD without pain community level distances. Goal Progress: Goal Met Goal 5:: Pt. to have increased RLE strength by 1/2 grade of all effected musculature allowing for increased stability with all functonal mobility. Goal Progress: Goal Met Goal 6:: Pt. to negotiate 1 flight of steps with reciprocal pattern with 1 HR without LOB. Goal Progress: Goal Met - Plan Plan: Pt. to be DC to HEP and gym exercises at this point intime. - D/C Information Discharge Comments: Pt. was seen for her R TKA in PT. Pt. is doing very well and is back to all recreational gym and pool exercises. Pt. is no longer having pain and is back to walking in community, upto 1 mile at a time. Pt. is independent with HEP and will be DC from PT at this point in time. If there are questions or concerns regarding this patient's physical therapy, please feel free to call me at [phone]. Thank you for the referral of this patient. Sincerely, Bolivar Rutherford DPT
== END 2019-03-02 19:00 | disposition home or self-care (01) ==
LOC: PT 14:00
PROVIDERS: Family Provider Family Medicine; PCP Family Medicine; Referring Provider Orthopaedic Surgery; Visit Provider Orthopaedic Surgery
DX: M17.11 Unilateral primary osteoarthritis, right knee (principal)
CPT/HCPCS: 97016; 97110; 97116; 97161; 97530

== ENCOUNTER → 2019-07-06 10:18 | Outpatient (CLI) | payer MEDICARE, OTHER, SELFPAY ==
[2019-01-05 16:35] VITALS: BMI 31.4
[2019-07-06 12:56] LABS: Anion Gap 4 (5-15); BUN 16 mg/dL (7-18); BUN/Creat Ratio 19.5 RATIO (10-20); Calcium,Total 9.3 mg/dL (8.5-10.1); Chloride 112 mmol/L (98-107); Cholesterol 193 mg/dL (200); Creatinine, Serum 0.82 mg/dL (0.55-1.02); EST Glomerular Filtration Rate 73 mL/min (>60); Est Glom Filt Rate - Afr Amer 88 mL/min (>60); Glucose 105 mg/dL (74-106); High Density Lipoprotein 78 mg/dL; Potassium 4.4 mmol/L (3.5-5.1); Sodium Level 142 mmol/L (136-145); Triglycerides 67 mg/dL; Very Low Density Lipoprotein 13 mg/dL (5-40)
== END ==
PROVIDERS: PCP Family Medicine; Referring Provider Family Medicine; Visit Provider Family Medicine
DX: I10 Essential (primary) hypertension (principal); E03.9 Hypothyroidism, unspecified
CPT/HCPCS: 36415; 80048; 80061; 84443

== ENCOUNTER 2019-08-20 20:12 | Inpatient (IN) | payer MEDICARE, OTHER, SELFPAY ==
[2019-01-05 16:35] VITALS: BMI 31.4
[2019-08-20] VITALS (7 sets, daily range): BP systolic 103–134; BP diastolic 55–78; PULSE 83–95; RESP 16–24; TEMP 36.5–37.6; O2SAT 85–96; BMI 31.8; BMI 29.0
--- NOTE | 2019-08-20 20:26 | EKG12_ITS ---
Test Reason : SOB Blood Pressure : / mmHG Vent. Rate : 086 BPM Atrial Rate : 086 BPM P-R Int : 144 ms QRS Dur : 080 ms QT Int : 342 ms P-R-T Axes : 028 002 -08 degrees QTc Int : 409 ms Normal sinus rhythm with sinus arrhythmia Normal ECG Confirmed by ALFREDA FREDERICK, LOIS ([id number]), pictures editor MARCO ANTONIO BRIGHT ([id number]) on 08/24/2019 10:27:32 AM Referred By: OLY/VILLA Confirmed By:LOIS GANT MD
--- NOTE | 2019-08-20 20:33 | ED.DCSUM_ITS ---
History of Present Illness Chief Complaint: Shortness of Breath Detail of Chief Complaint: Shortness of breath, fever, nonproductive cough Informant: Patient Onset: Days Context: Sudden Onset Timing: Intermittent Quality: Upper respiratory symptoms Location: Respiratory Current Severity: Moderate Maximum Severity: Severe Worsened by: Asthma Relieved by: Nothing Associated Symptoms: Temperature 102.0 ?F, nonproductive cough, congestion, nausea Narrative: Patient is a 74-year-old woman with history of asthma and hypertension who is been ill for approximately 1 to 2 weeks with respiratory symptoms. She was seen by her primary care physician. She was diagnosed with bronchitis and placed on an antibiotic. She uncertain the name. She presents because of abrupt onset of shortness of breath with nonproductive cough, wheezing, documented temperature of 102.0 ?F and nasal congestion. The respiratory symptoms and fever noted at 1500. She denies headache, photophobia, neck pain or neck stiffness. She denies loss of smell or taste. She denies ear pain or ear drainage. She states the cough is nonproductive. She does have increased shortness of breath. She denies chest discomfort. She denies history of coronary disease. She denies history of PE or DVT. She denies leg pain, swelling discoloration. She does report nausea without vomiting diarrhea. She denies urologic symptoms. Prior similar symptoms: Yes Recent Illness/Hospitalization: Yes - Past Medical History (1) Hypertension Status: Chronic (2) Asthma Status: Chronic Past Medical History - Allergies and Home Meds Allergies/Adverse Reactions: Allergies meperidine [From Demerol] Allergy (Verified 08/20/19 20:18) Other Prior records reviewed: Yes Surgical History: no surgical history Lives: Alone Smoking Status: Never smoker Alcohol: None Drugs: None - Family History Maternal Family History: Reports: Heart Disease Review of Systems General: Reports: Chills, Fever, Malaise. Denies: Subjective, Sweats, Weight loss Eyes: Denies: Visual changes - bilaterally, Blurred Vision - bilaterally ENT: Reports: Rhinorrhea. Denies: Bilateral ear pain, Sore throat Cardiovascular: Denies: Chest pain, Palpitations, Heart racing Respiratory: Reports: Dyspnea, Cough, Dyspnea on exertion. Denies: Sputum, Orthopnea, Paroxysmal nocturnal dyspnea Gastrointestinal: Reports: Nausea. Denies: Abdominal pain, Vomiting, Diarrhea, Constipation, Melena, Hematochezia, -, - Genitourinary: Denies: Dysuria, Hematuria, Frequency Musculoskeletal: Denies: Myalgias, Arthralgias, Neck pain, Back pain, Swelling, Extremity Pain Skin: Denies: Rash, Wounds Neurological: Reports: Weakness. Denies: Headache, Parasthesia, Numbness, -, - Endocrine: Denies: Polyuria, Polydipsia Hematologic: Denies: Easy bruising, Easy bleeding Allergy: Denies: Uticaria, Swelling of the mouth, Swelling of the tongue Physical Exam Vital Signs/Narrative: Vital Signs Temp Pulse Resp Pulse Ox 08/20/19 20:20 96 08/20/19 20:14 99.7 F H 95 20 H 85 Inital Vital Signs reviewed: Yes General: Well nourished, Well developed, Acute Distress Head: Normocephalic, Atraumatic Eyes: Perrl, EOMI. Negative for: Pale conjunctiva, Scleral icterus ENT: Moist mucous membranes, TM's clear, Nasal congestion. Negative for: No rhinorrhea Neck: Supple, Nontender, No lymphadenopathy, No JVD Cardiovascular: Regular rhythm, No murmurs, Normal S1, Normal S2, Tachycardia Respiratory: Chest nontender, Rales, Wheezing, Decreased Air Movement. Negative for: No distress, CTA bilaterally Abdomen: Soft, Nontender, Nondistended, Normal bowel sounds, No masses Rectal: Deferred Back: Nontender, Normal Inspection. Negative for: CVA tenderness, Spinal tenderness Extremities: Nontender, No edema. Negative for: Tenderness, Edema Skin: Normal color, No rash, No Trauma. Negative for: Cyanosis, Diaphoresis, Jaundice Neurological: Alert, Oriented x3, Cranial nerves II-XII grossly intact, Normal Strength, Normal Sensation Psychological: Normal affect Diagnostic/Tx/Re-eval Chest X-Ray - ED: 1 View, Read by ED Physician, - - Single view portable chest x-ray reveals normal cardiac silhouette and size. There is evidence of discoid atelectasis right lower lobe. There is chronic changes. There is no acute findings of the osseous structures. Mediastinum appears unremarkable. This was compared to prior x-ray. 08/20/19 20:45 Chest 1 View (Portable) [RAD] Stat Laboratory Results 08/20/19 08/20/19 08/20/19 20:30 20:30 20:30 WBC 15.6 H RBC 4.33 Hgb 12.6 Hct 38.0 MCV 87.8 MCH 29.1 MCHC 33.2 RDW Std Deviation 45.0 H RDW Coeff of Nancy 13.9 Plt Count 244 MPV 10.1 Immature Gran % (Auto) 0.800 Neut % (Auto) 88.7 H Lymph % (Auto) 4.6 L Wilkinson % (Auto) 5.3 Eos % (Auto) 0.4 Baso % (Auto) 0.2 Absolute Neuts (auto) 13.8 H Absolute Lymphs (auto) 0.72 L Nucleated RBC % 0 Sodium 136 Potassium 3.7 Chloride 105 Carbon Dioxide 24.0 Anion Gap 7 BUN 17 Creatinine 0.87 Estim Creat Clear Calc 51.82 Est GFR (MDRD) Af Amer 82 Est GFR (MDRD) Non-Af 68 BUN/Creatinine Ratio 19.5 Glucose 128 H Lactic Acid 1.1 Calcium 9.3 White count is elevated. Will treat with IV antibiotics. Since patient is hypoxic with insignificant changes on chest x-ray did need to entertain possi bility of COVID infection. - EKG Initial EKG Interpretation: Sinus Rhythm - This rhythm with a ventricular rate of 86. LA interval is 144 ms. QRS duration 80 ms. QT duration 342 ms. [place] is normal. There is evidence of respiratory variance which is a normal variant. - Medical Decision Making She has had intermittent respiratory symptoms for approximately 1+ weeks. She presents with abrupt onset of shortness of breath, cough and temperature to 102.0 ?F. She states has not been on steroids recently. Will not treat with steroids presently. Albuterol metered-dose inhaler was ordered for her wheezing and shortness of breath. Chest x-ray to rule out pneumonia. EKG to rule out cardiac ischemia. Appropriate blood work was obtained including blood cultures. Patient's pulse ox is only 85%. She was informed she will require admission to the hospital. Contacted the [facility] for COVID testing approval. She was approved. ED Disposition - Plan for ED Patient: Disposition: Acute Care Hospital [facility] Diagnosis: Suspected 2019 novel coronavirus infection, Respiratory failure with hypoxia, Exacerbation of asthma
[2019-08-20 20:45] LABS: Absolute Lymphocyte Count 0.72 X10^3/uL (0.83-4.51); Absolute Neutrophil Count 13.8 X10^3/uL (2.0-7.7); Basophil# 0.03 X10^3/uL; Basophil% 0.2 % (0-1); Eosinophil# 0.06 X10^3/uL; Eosinophils% 0.4 % (0-5); Hemoglobin 12.6 g/dL (12.0-15.0); Lymphocyte # 0.72 X10^3/ul (4.0); Lymphocyte % 4.6 % (19-41); Mean Corp Hgb Conc 33.2 g/dL (32-36); Mean Corpuscular Hgb 29.1 pg (27.0-32.0); Mean Corpuscular Volume 87.8 fL (81-99); Mean Platelet Vol. 10.1 fl (6.2-12.0); Monocyte# 0.83 X10^3/uL; Monocyte% 5.3 % (0-10); NRBC Flagged by Analyzer 0 % (0-5); Neutrophil % 88.7 % (47-70); Platelet Count 244 K/mm3 (150-450); RBC Distribution Width CV 13.9 % (11.6-14.6); Red Blood Count 4.33 M/mm3 (4.2-5.4); White Blood Count 15.6 K/mm3 (4.4-11.0)
--- NOTE | 2019-08-20 20:45 | RAD_ITS ---
STUDY: X-RAY CHEST REASON FOR EXAM: Female, 74 years old. DYSPNEA, DRY COUGH SINCE THIS AFTERNOON. TEMP 102 AT HOME PER PT. INTERMITTENT SYMPTOMS PAST SEVERAL WEEKS. HX OF ASTHMA. TECHNIQUE: Single AP portable view of the chest. COMPARISON: Previous study 02/19/2019 FINDINGS: potline monitor leads are present. There are atelectatic changes of the lung bases. There is no demonstrated pleural abnormality. Normal size heart. Normal mediastinum and sandra. Normal visualized pulmonary arteries. There are calcified plaques of the aortic arch. There are diffuse degenerative changes of the visualized thoracic spine. Normal visualized ribs, clavicles, and shoulders. There is no demonstrated abnormality of the visualized soft tissue structures of the upper abdomen. RAD/Chest 1 View (Portable) IMPRESSION: Bibasilar atelectasis, new in the interval. Calcified plaques of the aortic arch. Electronically Signed: Dimitris Meraz MD at 21:17 EDT , Service support ,
[2019-08-20 20:56] LABS: Anion Gap 7 (5-15); BUN 17 mg/dL (7-18); BUN/Creat Ratio 19.5 RATIO (10-20); Calcium,Total 9.3 mg/dL (8.5-10.1); Chloride 105 mmol/L (98-107); Creatinine, Serum 0.87 mg/dL (0.55-1.02); EST Glomerular Filtration Rate 68 mL/min (>60); Est Glom Filt Rate - Afr Amer 82 mL/min (>60); Estimated Creatinine Clearance 51.82 ml/min; Glucose 128 mg/dL (74-106); Potassium 3.7 mmol/L (3.5-5.1); Sodium Level 136 mmol/L (136-145)
[2019-08-20 21:05] LABS: Lactic Acid 1.1 mmol/L (0.4-1.9)
[2019-08-20] MEDS: 0.9% Normal Saline 1,000 ML 150 ML IV (21:20)
[2019-08-20] MEDS: Ceftriaxone 1 GM/50 ML BAG IV (21:28)
--- NOTE | 2019-08-20 21:34 | PCM.HP.STD ---
Problem List (1) Hypertension Status: Chronic (2) Asthma Status: Chronic (3) Suspected 2019 novel coronavirus infection Status: Acute (4) Respiratory failure with hypoxia Status: Acute (5) Exacerbation of asthma Status: Acute History of Present Illness Date of Admission: 08/20/19 Chief Complaint: Nonproductive cough The patient is a 74 year old F with a significant history of hypertension and asthma who presented to emergency department because of progressively worsening cough that started the same day of presentation. Associated with her symptoms is a fever of 102 Fahrenheit taken by the paramedics prior to coming to the hospital. Reportedly 1 to 2 weeks ago patient was started on amoxicillin for bronchitis. Chest x-ray at emergency department showed bilateral atelectasis She denies any recent travel or knowingly coming to contact with anyone with the novel coronary virus. Past Medical History Past Medical History (Chronic Problems): Chronic Problems Hypertension (Chronic) Asthma (Chronic) Allergies meperidine [From Demerol] Allergy (Verified 08/20/19 20:18) Other Home Medications: Ambulatory Orders Medication Instructions Recorded Glucosamine/MSM/Chondroitin A 1 each PO DAILY 02/26/16 [Glucosamine Chondroit MSM Tab] Levocetirizine Dihydrochloride 5 mg PO DAILY 02/26/16 [Xyzal] Lisinopril [Zestril] 10 mg PO DAILY 02/26/16 Omeprazole [Prilosec] 20 mg PO DAILY 02/26/16 Oxybutynin [Ditropan] 5 mg PO DAILY 02/26/16 Sertraline HCl [Zoloft] 50 mg PO DAILY 02/26/16 Acetaminophen [Tylenol] 1,000 mg PO Q8 08/20/19 Levothyroxine [Synthroid] 25 mcg PO DAILY 08/20/19 Montelukast Sodium [Singulair] 10 mg PO DAILY 08/20/19 Surgical History: - - 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 Tumor was taken;. Bilateral knee surgery. Foot surgery Lives: Alone Smoking Status: Never smoker Alcohol: None Drugs: None - *Family History Maternal History Items: Heart Disease Review of Systems Constitutional: Reports: Fever. Denies: Chills, Weight Change HEENT: Denies: Head Aches, Sinus Congestion, Sinus Drainage Cardiovascular: Denies: Chest Pain, Palpitations Respiratory: Reports: Cough, Shortness of Breath Gastrointestinal: Denies: Abdominal Pain, Nausea, Vomiting Genitourinary: Denies: Dysuria Musculoskeletal: Denies: Joint Pain, Joint Tenderness Skin: Denies: Rash, Wounds Neurological: Denies: Numbness, Tingling, Focal weakness Psychiatric: Denies: Anxiety, Depression, Homicidal Ideations, Suicidal Ideations Hematologic/ Lymphatic: Denies: Easy Bruising, Easy Bleeding VTE Information - Inpt Only VTE Present on Admission: No VTE Mechan Device Prophylaxis: None VTE Pharm Prophylaxis ordered?: Yes Patient Problems: Active and Suspected Problems Suspected 2018 novel coronavirus infection (Acute) Respiratory failure with hypoxia (Acute) Exacerbation of asthma (Acute) - Physical Exam Vitals/I&O's: Vital Signs Temp Pulse Resp BP Pulse Ox 98.6 F 91 21 H 103/66 94 08/20/19 21:30 08/20/19 21:30 08/20/19 21:30 08/20/19 21:30 08/20/19 21:30 Oxygen Flow Rate (L/min) 3 Oxygen Delivery Method Nasal Cannula Weight: 86.8 kg Body Mass Index (BMI) 31.8 General: Alert, Oriented x3, Cooperative HEENT: Atraumatic, PERRLA, EOMI, Normocephalic Neck: Supple, No JVD, Negative Carotid Bruits Lungs: Short of Breath, Tachypneic, Wheezes Cardiovascular: Normal S1, Normal S2, No murmurs, Tachycardic Abdomen: Bowel Sounds Present, Soft, Non Tender Extremities: No edema, Capillary Refill Less than 3 Seconds Skin: No rashes, No breakdown Musculoskeletal: No Tenderness to Palpation of Joints or Extremities Neurological: Cranial nerves II-XII grossly intact Psych/Mental Status: Normal Affect, Appropriate Laboratory Results 08/20/19 20:30: WBC 15.6 H, RBC 4.33, Hgb 12.6, Hct 38.0, MCV 87.8, MCH 29.1, MCHC 33.2, RDW Std Deviation 45.0 H, RDW Coeff of Nancy 13.9, Plt Count 244, MPV 10.1, Immature Gran % (Auto) 0.800, Neut % (Auto) 88.7 H, Lymph % (Auto) 4.6 L, [place] % (Auto) 5.3, Eos % (Auto) 0.4, Baso % (Auto) 0.2, Absolute Neuts (auto) 13.8 H, Absolute Lymphs (auto) 0.72 L, Nucleated RBC % 0 08/20/19 20:30: Sodium 136, Potassium 3.7, Chloride 105, Carbon Dioxide 24.0, Anion Gap 7, BUN 17, Creatinine 0.87, Estim Creat Clear Calc 51.82, Est GFR (MDRD) Af Amer 82, Est GFR (MDRD) Non-Af 68, BUN/Creatinine Ratio 19.5, Glucose 128 H, Calcium 9.3 08/20/19 20:30: Lactic Acid 1.1 08/20/19 20:49: COVID-19 ([facility]) Pending Current Medications Sodium Chloride () 1,000 mls @ 150 mls/hr IV .[id number] ONE Stop: 08/21/19 03:05 Last Admin: 08/20/19 21:20 Dose: 150 mls/hr Documented by: Ceftriaxone Sodium (Rocephin) 1 gm in 50 mls @ 100 mls/hr IV X1 ONE Stop: 08/20/19 21:37 Last Admin: 08/20/19 21:28 Dose: 100 mls/hr Documented by: Azithromycin 500 mg/ Dextrose 255 mls @ 250 mls/hr IV X1 ONE Stop: 08/20/19 22:09 Assessment/Plan All Active Problems Suspected 2019 novel coronavirus infection (Acute) Respiratory failure with hypoxia (Acute) Exacerbation of asthma (Acute) The patient is a 74 year old F with a significant history of hypertension and asthma who presented to emergency department because of progressively worsening cough and fever concerning for COVID 19 infection. Suspect COVID-19 infection Received azithromycin and ceftriaxone the emergency department. We will continue patient on ceftriaxone and azithromycin. Will admit to intensive care unit. COVID-19 test is pending. We will get comprehensive respiratory pathogen panel. Mucinex for cough. Received albuterol multidose inhaler at the emergency department. Continue albuterol multidose inhaler. PRN duoneb ordered. Incentive spirometer and chest physiotherapy ordered. Blood culture was obtained in the emergency department; follow. Tylenol for pain and fever. DVT prophylaxis Subcutaneous Lovenox. Inpatient E&M: 73531 Init Hosp L3
[2019-08-21] MEDS: guaiFENesin 1,200 MG Tablet 1200 MG PO ×3 (00:24→21:57)
[2019-08-21 04:45] VITALS: RESP 20; O2SAT 95
[2019-08-21 06:44] VITALS: BP 127/93; PULSE 79; RESP 18; TEMP 35.9; O2SAT 96
[2019-08-21 06:45] LABS: Absolute Lymphocyte Count 1.33 X10^3/uL (0.83-4.51); Absolute Neutrophil Count 12.3 X10^3/uL (2.0-7.7); Basophil# 0.03 X10^3/uL; Basophil% 0.2 % (0-1); Eosinophil# 0.06 X10^3/uL; Eosinophils% 0.4 % (0-5); Hemoglobin 10.7 g/dL (12.0-15.0); Lymphocyte # 1.33 X10^3/ul (4.0); Lymphocyte % 9.1 % (19-41); Mean Corp Hgb Conc 32.4 g/dL (32-36); Mean Corpuscular Hgb 29.1 pg (27.0-32.0); Mean Corpuscular Volume 89.7 fL (81-99); Mean Platelet Vol. 9.8 fl (6.2-12.0); Monocyte# 0.69 X10^3/uL; Monocyte% 4.7 % (0-10); NRBC Flagged by Analyzer 0 % (0-5); Neutrophil # 12.32 X10^3/uL (2.7-7.7); Neutrophil % 84.6 % (47-70); Platelet Count 196 K/mm3 (150-450); RBC Distribution Width CV 14.2 % (11.6-14.6); RBC Distribution Width SD 46.4 fl (35.1-43.9); Red Blood Count 3.68 M/mm3 (4.2-5.4); White Blood Count 14.6 K/mm3 (4.4-11.0)
[2019-08-21] MEDS: Levothyroxine 25 MCG TABLET PO (06:54)
[2019-08-21 07:01] LABS: Anion Gap 8 (5-15); BUN 13 mg/dL (7-18); BUN/Creat Ratio 20.2 RATIO (10-20); Calcium,Total 8.5 mg/dL (8.5-10.1); Chloride 111 mmol/L (98-107); Creatinine, Serum 0.64 mg/dL (0.55-1.02); EST Glomerular Filtration Rate 96 mL/min (>60); Est Glom Filt Rate - Afr Amer 116 mL/min (>60); Estimated Creatinine Clearance 48.72 ml/min; Glucose 104 mg/dL (74-106); Potassium 3.8 mmol/L (3.5-5.1); Sodium Level 144 mmol/L (136-145)
--- NOTE | 2019-08-21 07:08 | PN_ITS ---
Patient Problems: Active and Suspected Problems Suspected 2018 novel coronavirus infection (Acute) Respiratory failure with hypoxia (Acute) Exacerbation of asthma (Acute) Subjective: Patient with no acute events overnight per self and per nursing report. She continues to have a frontal throbbing headache as well as a cough, dry especially with any exertion in addition to dyspnea and nausea without emesis. She denies any abdominal cramping, emesis, diarrhea. Patient denies fevers, chills, emesis, abdominal pain, chest pain, sore throat or alteration to sense of smell and taste. Objective: Physical Examination: General: awake, alert, oriented x 3 and cooperative, seated upright in the ICU [facility] region with plan transition to [facility], no obvious distress currently. Skin: normal color, turgor, no icterus, cyanosis. HEENT: AT/NC, EOMI, PERRLA, mildly dry MM. Lungs: Diminished breath sounds throughout, greater bases, moderate effort, coughing, dry with increased effort request, no rales, ronchi or wheezing. Heart: Regular rate and rhythm; no gallop, rub audible. Abdomen: soft, NTTP, ND, normal BS. Extremities: no cyanosis, clubbing, or edema. Neurological: patient awake, alert, oriented x 3; cognitive function appears baseline intact; pupils equally reactive to light and accomodation; cranial nerves II-XII grossly normal, moving all 4 extremities, no focal deficits, strength moderately to severely global decrease secondary to acute presentation. Psychiatric: affect appears fatigued and mildly ill, no acute evidence of depressive or anxiety feelings. Vitals/I&O's: Vital Signs Temp Pulse Resp BP Pulse Ox 96.7 F L 79 18 127/93 H 96 08/21/19 06:44 08/21/19 06:44 08/21/19 06:44 08/21/19 06:44 08/21/19 06:44 Oxygen Flow Rate (L/min) 2 Oxygen Delivery Method Nasal Cannula Weight: 186 lb 4.65 oz Body Mass Index (BMI) 29.0 Intake and Output for Last 24 Hours 08/19/19 08/20/19 08/21/19 23:59 23:59 23:59 Intake Total 110 / 110 1375 / 1375 Output Total 250 / 250 250 / 250 Balance -140 / -140 1125 / 1125 Microbiology Past 72 Hours 08/21/19 03:55 Mucosa - Nose Respiratory Panel (PCR) - Final Laboratory Results 08/20/19 20:30: WBC 15.6 H, RBC 4.33, Hgb 12.6, Hct 38.0, MCV 87.8, MCH 29.1, MCHC 33.2, RDW Std Deviation 45.0 H, RDW Coeff of Nancy 13.9, Plt Count 244, MPV 10.1, Immature Gran % (Auto) 0.800, Neut % (Auto) 88.7 H, Lymph % (Auto) 4.6 L, [place] % (Auto) 5.3, Eos % (Auto) 0.4, Baso % (Auto) 0.2, Absolute Neuts (auto) 13.8 H, Absolute Lymphs (auto) 0.72 L, Nucleated RBC % 0 08/20/19 20:30: Sodium 136, Potassium 3.7, Chloride 105, Carbon Dioxide 24.0, Anion Gap 7, BUN 17, Creatinine 0.87, Estim Creat Clear Calc 51.82, Est GFR (MDRD) Af Amer 82, Est GFR (MDRD) Non-Af 68, BUN/Creatinine Ratio 19.5, Glucose 128 H, Calcium 9.3 08/20/19 20:30: Lactic Acid 1.1 08/20/19 20:49: COVID-19 ([facility]) Pending 08/21/19 06:40: WBC 14.6 H, RBC 3.68 L, Hgb 10.7 L, Hct 33.0 L, MCV 89.7, MCH 29.1, MCHC 32.4, RDW Std Deviation 46.4 H, RDW Coeff of Nancy 14.2, Plt Count 196, MPV 9.8, Immature Gran % (Auto) 1.000 H, Neut % (Auto) 84.6 H, Lymph % (Auto) 9.1 L, [place] % (Auto) 4.7, Eos % (Auto) 0.4, Baso % (Auto) 0.2, Absolute Neuts (auto) 12.3 H, Absolute Lymphs (auto) 1.33, Nucleated RBC % 0 08/21/19 06:40: Sodium 144, Potassium 3.8, Chloride 111 H, Carbon Dioxide 25.0, Anion Gap 8, BUN 13, Creatinine 0.64, Estim Creat Clear Calc 48.72, Est GFR (MDRD) Af Amer 116, Est GFR (MDRD) Non-Af 96, BUN/Creatinine Ratio 20.2 H, Glucose 104, Calcium 8.5 Current Medications Acetaminophen (Tylenol) 650 mg PO Q6H PRN PRN PRN Reason: Pain Score 1-10/Temp > 100.7 F Albuterol Sulfate (Proair Hfa (Sp) Surgery/Vent Pts) 2 puff INHALATION Q4 [facility] Last Admin: 08/21/19 06:36 Dose: 2 puff Documented by: Albuterol/Ipratropium (Duoneb) 3 ml INHALATION Q4H.RT PRN PRN Reason: SOB/WHEEZING Dextrose (D50w Syringe) 0 gm IV X1 PRN; Protocol PRN Reason: Hypoglycemia Enoxaparin Sodium (Lovenox) 40 mg SC DAILY [facility] Glucagon () 1 mg IM .X1 PRN PRN Reason: Hypoglycemia Guaifenesin (Mucinex) 1,200 mg PO BID [facility] Last Admin: 08/21/19 00:24 Dose: 1,200 mg Documented by: Sodium Chloride () 250 mls @ 15 mls/hr IV .[id number] PRN PRN Reason: Saline Flush Sodium Chloride () 250 mls @ 15 mls/hr IV .[id number] PRN PRN Reason: Additional IVPB Infusion Last Admin: 08/21/19 06:35 Dose: 15 mls/hr Documented by: Azithromycin 500 mg/ Dextrose 255 mls @ 250 mls/hr IV Q24H [facility] Ceftriaxone Sodium (Rocephin) 1 gm in 50 mls @ 100 mls/hr IV Q24H [facility] Levothyroxine Sodium (Synthroid) 25 mcg PO DAILY [facility] Last Admin: 08/21/19 06:54 Dose: 25 mcg Documented by: Lisinopril (Zestril) 10 mg PO DAILY [facility] Loratadine (Claritin) 5 mg PO DAILY [facility] Melatonin (Melatonin) 3 mg PO QHS PRN PRN PRN Reason: INSOMNIA Montelukast Sodium (Singulair) 10 mg PO DAILY [facility] Ondansetron HCl (Zofran) 4 mg IV Q8H PRN PRN PRN Reason: NAUSEA/VOMITING Oxybutynin Chloride (Ditropan) 5 mg PO DAILY [facility] Pantoprazole Sodium (Protonix) 20 mg PO DAILY [facility] Sertraline HCl (Zoloft) 50 mg PO DAILY [facility] Sodium Chloride () 10 - 40 ml IV UD PRN PRN Reason: SALINE FLUSH STROKE Vital Signs/Narrative: Vital Signs Temp Pulse Resp BP Pulse Ox 08/21/19 06:44 96.7 F L 79 18 127/93 H 96 08/21/19 04:45 20 H 95 Medical Necessity - Tobacco Use Smoking Status: Never smoker Assessment/Plan All Active Problems Suspected 2019 novel coronavirus infection (Acute) Respiratory failure with hypoxia (Acute) Exacerbation of asthma (Acute) The patient is a 74 y/o F w/ PMHx: Asthma w/ Allergic Rhinitis, HTN, GERD, Anxiety and Depression, Hypothyroidism who presents to the [facility] ED on 08/20/19 with history of progressively worsening dry cough as well as dyspnea with fever 102 prior to ED presentation with treatment of bronchitis outpatient approximately 2 weeks prior with amoxicillin at that time. 1. Acute Dyspnea, Cough, Fever with RLL Pneumonia secondary to Possible CAP versus Acute Viral Syndrome, COVID-19: ED initial evaluation with T 99.7, heart rate 95, BP 134/69, respiratory rate 24, initially 85% on room air with improvement to 96% on 3 L nasal cannula, CBC with WBC 15.6, hemoglobin 12.6, platelet 244 with left shift with concurrent lymphopenia, lactic acid 1.1, chest x-ray with bilateral atelectasis, negative respiratory viral panel. Patient admitted to the COVID unit, continued on azithromycin and Rocephin therapy, maintained on telemetry monitoring, continued on oxygen therapy with wean to room air as possible, repeat a.m. chest x-ray 08/21/2019 with progressive right basilar atelectasis and/or infiltrate compared to prior. Will obtain sputum cultures, urine antigens, procalcitonin, CRP, CPK, Ferritin, LDH, continue supportive care including q 2 hour turning including prone given no prone bed availability and judicious hydration, closely monitor for worsening status for ARDS and multiorgan failure. If patient worsens with need for oxygen >6 L would plan intubation with ICU physician continued care. Pulmonary/ICU physician consulted upon patient admission and following. Bld cx x 2 obtained in the ED. d-dimer obtained and noted to be 0.72 however there is normal once age-adjusted. 2. Chronic asthma with allergic rhinitis: We will continue patient scheduled albuterol, PRN albuterol both MDI given presentation, encourage head of bed, I- S, continue patient home Singulair regimen. 3. Hypertension: Continue home regimen including lisinopril, PRN hydralazine. 4. Hypothyroidism: Continue home synthroid regimen. 5. Anxiety and Depression: We will continue patient home sertraline regimen. 6. GERD: Maintain on home PPI. 7. DVT prophylaxis: SCDs, Lovenox. 8. CODE STATUS: Full code. Inpatient E&M: 39234 Subs Hosp L2
--- NOTE | 2019-08-21 07:09 | CON.PCM_ITS ---
Reason for Consult Date of Consultation: 08/21/19 Reason for Consultation: Suspected COVID infection History of Present Illness: The patient is a 74-year-old female, with a history as outlined below, who presented to the emergency department on August 19 with complaints of shortness of breath, fever and nonproductive cough. The patient denies any recent sick contact exposure. She does report that her fever peaked at 102 ?F. The patient was apparently recently diagnosed and treated with an antibiotic by her primary care provider. On presentation to the emergency department, the patient had a temperature documented to be 99.7 ?F. She was hypoxemic, saturating 85% on room air. Laboratory evaluation revealed an elevated white blood cell count to 15,000. Chemistry profile was unremarkable. Lactate was within normal limits. Plain film chest x-ray revealed no acute cardiopulmonary process. COVID testing was subsequently sent. The patient was subsequently admitted to the hospital for further medical management. No overnight issues were identified by the nursing staff. The patient is currently maintaining appropriate oxygen saturations in the high 90s on 2 L/min. She is currently afebrile and hemodynamically stable. Past Medical History Past Medical History (Chronic Problems): Chronic Problems Hypertension (Chronic) Asthma (Chronic) Allergies meperidine [From Demerol] Allergy (Verified 08/20/19 20:18) Other Home Medications: Ambulatory Orders Medication Instructions Recorded Glucosamine/MSM/Chondroitin A 1 each PO DAILY 02/26/16 [Glucosamine Chondroit MSM Tab] Levocetirizine Dihydrochloride 5 mg PO DAILY 02/26/16 [Xyzal] Lisinopril [Zestril] 10 mg PO DAILY 02/26/16 Omeprazole [Prilosec] 20 mg PO DAILY 02/26/16 Oxybutynin [Ditropan] 5 mg PO DAILY 02/26/16 Sertraline HCl [Zoloft] 50 mg PO DAILY 02/26/16 Acetaminophen [Tylenol] 1,000 mg PO Q8 08/20/19 Levothyroxine [Synthroid] 25 mcg PO DAILY 08/20/19 Montelukast Sodium [Singulair] 10 mg PO DAILY 08/20/19 Surgical History: - - 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 Tumor was taken;. Bilateral knee surgery. Foot surgery Lives: Alone Smoking Status: Never smoker Alcohol: None Drugs: None - *Family History Maternal History Items: Heart Disease Review of Systems Constitutional: Reports: Fever. Denies: Chills Eyes: Denies: Blurred vision, Double vision HEENT: Reports: Nasal Congestion. Denies: Head Aches, Sinus Congestion, Sinus Drainage Cardiovascular: Denies: Chest Pain, Palpitations Respiratory: Reports: Cough, Shortness of Breath, Wheezing Gastrointestinal: Denies: Abdominal Pain, Nausea, Vomiting Genitourinary: Denies: Dysuria Musculoskeletal: Denies: Joint Pain, Joint Tenderness Skin: Denies: Rash, Wounds Neurological: Denies: Numbness, Tingling, Focal weakness Psychiatric: Denies: Anxiety, Depression, Homicidal Ideations, Suicidal Ideations Hematologic/ Lymphatic: Reports: Anemia Patient Problems: Active and Suspected Problems Suspected 2019 novel coronavirus infection (Acute) Respiratory failure with hypoxia (Acute) Exacerbation of asthma (Acute) Objective: The patient's most recent lab work, culture data and imaging studies have all been personally reviewed. Respiratory viral panel was negative. Blood cultures are pending. - Physical Exam Vitals/I&O's: Vital Signs Temp Pulse Resp BP Pulse Ox 96.7 F L 79 18 127/93 H 96 08/21/19 06:44 08/21/19 06:44 08/21/19 06:44 08/21/19 06:44 08/21/19 06:44 Oxygen Flow Rate (L/min) 2 Oxygen Delivery Method Nasal Cannula Weight: 186 lb 4.65 oz Body Mass Index (BMI) 29.0 Intake and Output for Last 24 Hours 08/19/19 08/20/19 08/21/19 23:59 23:59 23:59 Intake Total 110 / 110 1375 / 1375 Output Total 250 / 250 250 / 250 Balance -140 / -140 1125 / 1125 General: Alert, Cooperative, No apparent distress HEENT: Atraumatic, Normocephalic Oral: No Gingival or Mucosal Lesions/ Ulcerations Neck: Supple, No Nodes, Trachea Midline Lungs: No rhonchi, No wheeze, No rales, Diminished Cardiovascular: Regular rate, Regular Rhythm, Normal S1, Normal S2, No murmurs Abdomen: Bowel Sounds Present, Soft, Non Tender Extremities: No clubbing, No cyanosis Skin: No breakdown Musculoskeletal: No Tenderness to Palpation of Joints or Extremities Lymphatic: No Cervical, Supraclavicular, or Inguinal Adenopathy Neurological: Neuro grossly intact Psych/Mental Status: Normal Affect, Appropriate Labs (Last 48 Hours) 08/20/19 08/20/19 08/20/19 20:30 20:30 20:30 WBC 15.6 H RBC 4.33 Hgb 12.6 Hct 38.0 MCV 87.8 MCH 29.1 MCHC 33.2 RDW Std Deviation 45.0 H RDW Coeff of Nanyc 13.9 Plt Count 244 MPV 10.1 Immature Gran % (Auto) 0.800 Neut % (Auto) 88.7 H Lymph % (Auto) 4.6 L [place] % (Auto) 5.3 Eos % (Auto) 0.4 Baso % (Auto) 0.2 Absolute Neuts (auto) 13.8 H Absolute Lymphs (auto) 0.72 L Nucleated RBC % 0 Sodium 136 Potassium 3.7 Chloride 105 Carbon Dioxide 24.0 Anion Gap 7 BUN 17 Creatinine 0.87 Estim Creat Clear Calc 51.82 Est GFR (MDRD) Af Amer 82 Est GFR (MDRD) Non-Af 68 BUN/Creatinine Ratio 19.5 Glucose 128 H Lactic Acid 1.1 Calcium 9.3 COVID-19 ([facility]) 08/20/19 08/21/19 08/21/19 20:49 06:40 06:40 WBC 14.6 H RBC 3.68 L Hgb 10.7 L Hct 33.0 L MCV 89.7 MCH 29.1 MCHC 32.4 RDW Std Deviation 46.4 H RDW Coeff of Nancy 14.2 Plt Count 196 MPV 9.8 Immature Gran % (Auto) 1.000 H Neut % (Auto) 84.6 H Lymph % (Auto) 9.1 L [place] % (Auto) 4.7 Eos % (Auto) 0.4 Baso % (Auto) 0.2 Absolute Neuts (auto) 12.3 H Absolute Lymphs (auto) 1.33 Nucleated RBC % 0 Sodium 144 Potassium 3.8 Chloride 111 H Carbon Dioxide 25.0 Anion Gap 8 BUN 13 Creatinine 0.64 Estim Creat Clear Calc 48.72 Est GFR (MDRD) Af Amer 116 Est GFR (MDRD) Non-Af 96 BUN/Creatinine Ratio 20.2 H Glucose 104 Lactic Acid Calcium 8.5 COVID-19 ([facility]) Pending Microbiology 08/21/19 03:55 Mucosa - Nose Respiratory Panel (PCR) - Final Clinical Impression(s) from Imaging Studies Chest X-Ray 08/20/19 20:45 IMPRESSION: Bibasilar atelectasis, new in the interval. Calcified plaques of the aortic arch. Electronically Signed: Dimitris Meraz MD at 21:17 EDT , Service support , Current Medications Acetaminophen (Tylenol) 650 mg PO Q6H PRN PRN PRN Reason: Pain Score 1-10/Temp > 100.7 F Albuterol Sulfate (Proair Hfa (Sp) Surgery/Vent Pts) 2 puff INHALATION Q4 [facility] Last Admin: 08/21/19 06:36 Dose: 2 puff Documented by: Albuterol/Ipratropium (Duoneb) 3 ml INHALATION Q4H.RT PRN PRN Reason: SOB/WHEEZING Dextrose (D50w Syringe) 0 gm IV X1 PRN; Protocol PRN Reason: Hypoglycemia Enoxaparin Sodium (Lovenox) 40 mg SC DAILY [facility] Glucagon () 1 mg IM .X1 PRN PRN Reason: Hypoglycemia Guaifenesin (Mucinex) 1,200 mg PO BID [facility] Last Admin: 08/21/19 00:24 Dose: 1,200 mg Documented by: Sodium Chloride () 250 mls @ 15 mls/hr IV .[id number] PRN PRN Reason: Saline Flush Sodium Chloride () 250 mls @ 15 mls/hr IV .[id number] PRN PRN Reason: Additional IVPB Infusion Last Admin: 08/21/19 06:35 Dose: 15 mls/hr Documented by: Azithromycin 500 mg/ Dextrose 255 mls @ 250 mls/hr IV Q24H [facility] Ceftriaxone Sodium (Rocephin) 1 gm in 50 mls @ 100 mls/hr IV Q24H [facility] Levothyroxine Sodium (Synthroid) 25 mcg PO DAILY [facility] Last Admin: 08/21/19 06:54 Dose: 25 mcg Documented by: Lisinopril (Zestril) 10 mg PO DAILY [facility] Loratadine (Claritin) 5 mg PO DAILY [facility] Melatonin (Melatonin) 3 mg PO QHS PRN PRN PRN Reason: INSOMNIA Montelukast Sodium (Singulair) 10 mg PO DAILY [facility] Ondansetron HCl (Zofran) 4 mg IV Q8H PRN PRN PRN Reason: NAUSEA/VOMITING Oxybutynin Chloride (Ditropan) 5 mg PO DAILY [facility] Pantoprazole Sodium (Protonix) 20 mg PO DAILY [facility] Sertraline HCl (Zoloft) 50 mg PO DAILY [facility] Sodium Chloride () 10 - 40 ml IV UD PRN PRN Reason: SALINE FLUSH Assessment/Plan Active and Suspected Problems Suspected 2018 novel coronavirus infection (Acute) Respiratory failure with hypoxia (Acute) Exacerbation of asthma (Acute) RECOMMENDATIONS: 1. Obtain repeat CXR. 2. Continue empiric antimicrobials, pending infectious work-up. 3. Await COVID test results. 4. Wean supplemental oxygen to maintain saturations at or above 90%. 5. Encourage incentive spirometer use while in bed. IMPRESSIONS: 1. Acute hypoxemic respiratory insufficiency The patient presented to the hospital with a constellation of respiratory symptoms, which did not improve despite outpatient antibiotic treatment. Her chest x-ray reveals a potential early right lower lobe infiltrate. Agree with continuing antimicrobials for now, pending infectious work-up. COVID testing was sent and is currently pending. Wean supplemental oxygen to maintain saturations at or above 90%. Encourage incentive spirometer use while in bed. 2. Hypertension/depression/GERD/hypothyroidism Complicates care, management, recovery and prognosis. Continue home medications as indicated. This note was generated with [employer] software. It may contain incorrect words, spelling, and punctuation that were not noted in checking the note before signing. Inpatient E&M: 14311 Init Hosp L3
--- NOTE | 2019-08-21 07:15 | RAD_ITS ---
STUDY: X-RAY CHEST REASON FOR EXAM: Female, 74 years old. Respiratory insufficiency TECHNIQUE: Single AP portable view of the chest. COMPARISON: Comparison is made with prior study dated August 20, 2019. FINDINGS: Since prior study, there is been progression of the right basilar atelectasis/infiltrate. Stable appearance of the left lung base. There is no demonstrated pleural abnormality. Normal size heart. Normal mediastinum and sandra. Normal visualized pulmonary arteries. There is atherosclerotic calcification of the aortic arch with tortuosity. There are diffuse degenerative changes of the visualized thoracic spine. Normal visualized ribs, clavicles, and shoulders. There is no demonstrated abnormality of the visualized soft tissue structures of the upper abdomen. RAD/Chest 1 View (Portable) IMPRESSION: Progressive right basilar atelectasis/infiltrate as compared to prior study. Electronically Signed: Eliazar Dubon, at 8:50 EDT , Service support ,
[2019-08-21] MEDS: Sertraline 50 MG Tablet PO (09:26)
[2019-08-21] MEDS: Pantoprazole Sodium 20 MG Tablet PO (09:26)
[2019-08-21] MEDS: Loratadine 10 MG Tablet 5 MG PO (09:26)
[2019-08-21] MEDS: Oxybutynin 5 MG Tablet PO (09:26)
[2019-08-21] MEDS: Lisinopril 10 MG Tablet PO (09:26)
[2019-08-21] MEDS: Enoxaparin 40 MG/0.4 ML Syringe SC (09:26)
[2019-08-21] MEDS: Montelukast 10 MG Tablet PO (09:26)
[2019-08-21] MEDS: Acetaminophen 325 MG Tablet 650 MG PO (09:33)
[2019-08-21 12:00] VITALS: BP 111/56; PULSE 59; RESP 16; TEMP 36.8; O2SAT 98
[2019-08-21 12:33] LABS: Ferritin 81 ng/mL (8-252); LDH 125 U/L (84-246); Magnesium 1.8 mg/dL (1.6-2.6)
[2019-08-21 12:50] LABS: Procalcitonin 2.71 ng/mL (0.00-0.09)
[2019-08-21] MEDS: 0.9% Normal Saline 1,000 ML 100 ML IV ×2 (13:00→22:32)
--- NOTE | 2019-08-21 13:01 | CASEMGMT ---
RN CM Assessment Note Presentation: Suspected COVID-19. Worsening cough, fever of 102 @ home. Intro role of CM and purpose of RN CM assessment to patient via phone to room. Pt is awake, alert and able to participate in assessment. Demographics, PCP and Pharmacy verified. Pt states she is independent at home. No care needs. Lives with her who has been healthy. -Discussed possible need to isolate when @ home. Pt states her family (daughter) is able to grape picker groceries, meds on dc if needed. PCP: Dr. Meraz Specialists: Dr. Adam; pulmonology Preferred Pharmacy: [facility], [place] Insurance: [facility] Prescription Benefit: yes LNOK : [employer] Dickey Living Arrangements: Lives independently in home with her . Denies any care needs Transportation: drives or can drive. DME: walker, does not use. If home oxygen is needed, [employer] or [employer] could be used. HHC: none Patient DC goals: Home DC PLAN: Home, review for Home oxygen on dc. Advised to contact cm for any concerns/needs that may arise. Arianna GARCESN RN ACM
--- NOTE | 2019-08-21 14:04 | CASEMGMT ---
Social Work Note Per medical management trainer questions, pt has completed HCPOA and LW, hasn't provided copy to [facility] but is able to bring in copies. Hollie Atkins QUOTER, BOAT CLEANER
[2019-08-21 14:31] LABS: D-Dimer Quantitative (DVT/PE) 0.72 FEU/ug/m (0.27-0.49)
--- NOTE | 2019-08-21 17:07 | NURSING ---
daughter- Kayleigh Rodriguez called in requesting return call- denied questions as she states she just spoke with patient and was already updated.
[2019-08-21 19:53] VITALS: BP 112/56; PULSE 64; RESP 18; TEMP 36.9; O2SAT 99
[2019-08-21] MEDS: Ceftriaxone 1 GM/50 ML BAG IV (21:57)
[2019-08-21 23:25] VITALS: BP 126/66; PULSE 79; RESP 18; TEMP 36.8; O2SAT 96
[2019-08-22] MEDS: Benzonatate 100 MG Capsule PO (01:56)
[2019-08-22 02:00] VITALS: BP 115/51; PULSE 68; RESP 18; TEMP 36.6; O2SAT 96
[2019-08-22] MEDS: Levothyroxine 25 MCG TABLET PO (05:20)
--- NOTE | 2019-08-22 06:56 | PN_ITS ---
Subjective: The patient was seen and examined at the bedside this morning. Events from the last 24 hours have been reviewed. The patient is currently afebrile, hemodynamically stable and maintaining appropriate oxygen saturations on 1 L/min via nasal cannula. COVID testing is still pending. Objective: The patient's most recent lab work, culture data and imaging studies have all been personally reviewed. Respiratory viral panel was negative. Strep and urine Legionella antigens were negative. Blood cultures have shown no growth to date. - Physical Exam Vitals/I&O's: Vital Signs Temp Pulse Resp BP Pulse Ox 97.8 F 68 18 115/51 L 96 08/22/19 02:00 08/22/19 02:00 08/22/19 02:00 08/22/19 02:00 08/22/19 02:00 Oxygen Flow Rate (L/min) 1 Oxygen Delivery Method Nasal Cannula Weight: 186 lb 8.177 oz Body Mass Index (BMI) 29.0 Intake and Output for Last 24 Hours 08/20/19 08/21/19 08/22/19 23:59 23:59 23:59 Intake Total 110 / 110 3674.58 / 3674.58 120 / 120 Output Total 250 / 250 550 / 550 950 / 950 Balance -140 / -140 3124.58 / 3124.58 -830 / -830 General: Alert, No apparent distress HEENT: Atraumatic, Normocephalic Oral: No Gingival or Mucosal Lesions/ Ulcerations Neck: Supple, No Nodes, Trachea Midline Lungs: No rhonchi, No wheeze, No rales Cardiovascular: Regular rate, Regular Rhythm, Normal S1, Normal S2, No murmurs Abdomen: Bowel Sounds Present, Soft, Non Tender Extremities: No clubbing, No cyanosis, No edema Skin: No breakdown Musculoskeletal: No Tenderness to Palpation of Joints or Extremities Lymphatic: No Cervical, Supraclavicular, or Inguinal Adenopathy Neurological: Neuro grossly intact Psych/Mental Status: Normal Affect, Appropriate Labs (Last 48 Hours) 08/20/19 08/20/19 08/20/19 20:30 20:30 20:30 WBC 15.6 H RBC 4.33 Hgb 12.6 Hct 38.0 MCV 87.8 MCH 29.1 MCHC 33.2 RDW Std Deviation 45.0 H RDW Coeff of Nancy 13.9 Plt Count 244 MPV 10.1 Immature Gran % (Auto) 0.800 Neut % (Auto) 88.7 H Lymph % (Auto) 4.6 L Falls % (Auto) 5.3 Eos % (Auto) 0.4 Baso % (Auto) 0.2 Absolute Neuts (auto) 13.8 H Absolute Lymphs (auto) 0.72 L Nucleated RBC % 0 D-Dimer Quant (PE/DVT) Sodium 136 Potassium 3.7 Chloride 105 Carbon Dioxide 24.0 Anion Gap 7 BUN 17 Creatinine 0.87 Estim Creat Clear Calc 51.82 Est GFR (MDRD) Af Amer 82 Est GFR (MDRD) Non-Af 68 BUN/Creatinine Ratio 19.5 Glucose 128 H Lactic Acid 1.1 Calcium 9.3 Magnesium Ferritin Lactate Dehydrogenase C-React Prot Ext Range Procalcitonin COVID-19 ([facility]) 08/20/19 08/21/19 08/21/19 20:49 06:40 06:40 WBC 14.6 H RBC 3.68 L Hgb 10.7 L Hct 33.0 L MCV 89.7 MCH 29.1 MCHC 32.4 RDW Std Deviation 46.4 H RDW Coeff of Nancy 14.2 Plt Count 196 MPV 9.8 Immature Gran % (Auto) 1.000 H Neut % (Auto) 84.6 H Lymph % (Auto) 9.1 L Falls % (Auto) 4.7 Eos % (Auto) 0.4 Baso % (Auto) 0.2 Absolute Neuts (auto) 12.3 H Absolute Lymphs (auto) 1.33 Nucleated RBC % 0 D-Dimer Quant (PE/DVT) Sodium 144 Potassium 3.8 Chloride 111 H Carbon Dioxide 25.0 Anion Gap 8 BUN 13 Creatinine 0.64 Estim Creat Clear Calc 48.72 Est GFR (MDRD) Af Amer 116 Est GFR (MDRD) Non-Af 96 BUN/Creatinine Ratio 20.2 H Glucose 104 Lactic Acid Calcium 8.5 Magnesium Ferritin Lactate Dehydrogenase C-React Prot Ext Range Procalcitonin COVID-19 ([facility]) Pending 08/21/19 08/21/19 08/21/19 11:55 11:55 13:45 WBC RBC Hgb Hct MCV MCH MCHC RDW Std Deviation RDW Coeff of Nancy Plt Count MPV Immature Gran % (Auto) Neut % (Auto) Lymph % (Auto) Falls % (Auto) Eos % (Auto) Baso % (Auto) Absolute Neuts (auto) Absolute Lymphs (auto) Nucleated RBC % D-Dimer Quant (PE/DVT) 0.72 H* Sodium Potassium Chloride Carbon Dioxide Anion Gap BUN Creatinine Estim Creat Clear Calc Est GFR (MDRD) Af Amer Est GFR (MDRD) Non-Af BUN/Creatinine Ratio Glucose Lactic Acid Calcium Magnesium 1.8 Ferritin 81 Lactate Dehydrogenase 125 C-React Prot Ext Range 54.30 H Procalcitonin 2.71 H COVID-19 ([facility]) Microbiology 08/21/19 14:05 Urine, Clean Catch Streptococcus pneumoniae Antigen (M - Final 08/21/19 14:05 Urine, Clean Catch Legionella Antigen - Final 08/21/19 03:55 Mucosa - Nose Respiratory Panel (PCR) - Final Clinical Impression(s) from Imaging Studies Chest X-Ray 08/20/19 20:45 IMPRESSION: Bibasilar atelectasis, new in the interval. Calcified plaques of the aortic arch. Electronically Signed: Dimitris Meraz MD at 21:17 EDT , Service support , Chest X-Ray 08/21/19 07:15 IMPRESSION: Progressive right basilar atelectasis/infiltrate as compared to prior study. Electronically Signed: Eliazar Dubon, at 8:50 EDT , Service support , Current Medications Acetaminophen (Tylenol) 650 mg PO Q6H PRN PRN PRN Reason: Pain Score 1-10/Temp > 100.7 F Last Admin: 08/21/19 09:33 Dose: 650 mg Documented by: Albuterol Sulfate (Proair Hfa (Sp) Surgery/Vent Pts) 2 puff INHALATION Q4 ESCOBAR Last Admin: 08/22/19 05:20 Dose: 2 puff Documented by: Albuterol Sulfate (Proair Hfa (Sp) Surgery/Vent Pts) 2 puff INHALATION Q4H PRN PRN PRN Reason: dyspnea, wheezing Albuterol/Ipratropium (Duoneb) 3 ml INHALATION Q4H.RT PRN PRN Reason: SOB/WHEEZING Benzonatate (Tessalon Perle) 100 mg PO TID PRN PRN PRN Reason: COUGH Last Admin: 08/22/19 01:56 Dose: 100 mg Documented by: Dextrose (D50w Syringe) 0 gm IV X1 PRN; Protocol PRN Reason: Hypoglycemia Enoxaparin Sodium (Lovenox) 40 mg SC DAILY [facility] Last Admin: 08/21/19 09:26 Dose: 40 mg Documented by: Glucagon () 1 mg IM .X1 PRN PRN Reason: Hypoglycemia Guaifenesin (Mucinex) 1,200 mg PO BID [facility] Last Admin: 08/21/19 21:57 Dose: 1,200 mg Documented by: Hydralazine HCl (Apresoline Iv) 10 mg IV Q4H PRN PRN PRN Reason: SBP > 160 Sodium Chloride () 250 mls @ 15 mls/hr IV .[id number] PRN PRN Reason: Saline Flush Sodium Chloride () 250 mls @ 15 mls/hr IV .[id number] PRN PRN Reason: Additional IVPB Infusion Last Infusion: 08/21/19 13:00 Dose: Infused Documented by: Azithromycin 500 mg/ Dextrose 255 mls @ 250 mls/hr IV Q24H [facility] Last Infusion: 08/21/19 23:35 Dose: Infused Documented by: Ceftriaxone Sodium (Rocephin) 1 gm in 50 mls @ 100 mls/hr IV Q24H [facility] Last Infusion: 08/21/19 22:27 Dose: Infused Documented by: Sodium Chloride () 1,000 mls @ 100 mls/hr IV .Q10H [facility] Last Infusion: 08/21/19 23:35 Dose: 100 mls/hr Documented by: Levothyroxine Sodium (Synthroid) 25 mcg PO DAILY@0600 [facility] Last Admin: 08/22/19 05:20 Dose: 25 mcg Documented by: Lisinopril (Zestril) 10 mg PO DAILY [facility] Last Admin: 08/21/19 09:26 Dose: 10 mg Documented by: Loratadine (Claritin) 5 mg PO DAILY [facility] Last Admin: 08/21/19 09:26 Dose: 5 mg Documented by: Melatonin (Melatonin) 3 mg PO QHS PRN PRN PRN Reason: INSOMNIA Montelukast Sodium (Singulair) 10 mg PO DAILY [facility] Last Admin: 08/21/19 09:26 Dose: 10 mg Documented by: Ondansetron HCl (Zofran) 4 mg IV Q8H PRN PRN PRN Reason: NAUSEA/VOMITING Oxybutynin Chloride (Ditropan) 5 mg PO DAILY [facility] Last Admin: 08/21/19 09:26 Dose: 5 mg Documented by: Pantoprazole Sodium (Protonix) 20 mg PO DAILY [facility] Last Admin: 08/21/19 09:26 Dose: 20 mg Documented by: Sertraline HCl (Zoloft) 50 mg PO DAILY [facility] Last Admin: 08/21/19 09:26 Dose: 50 mg Documented by: Sodium Chloride () 10 - 40 ml IV UD PRN PRN Reason: SALINE FLUSH Medical Necessity - Tobacco Use Smoking Status: Never smoker Assessment/Plan All Active Problems Suspected 2019 novel coronavirus infection (Acute) Respiratory failure with hypoxia (Acute) Exacerbation of asthma (Acute) RECOMMENDATIONS: 1. Continue empiric antimicrobials. 2. Await COVID test results. 3. Wean supplemental oxygen to maintain saturations at or above 90%. 4. Encourage incentive spirometer use while in bed. IMPRESSIONS: 1. Acute hypoxemic respiratory insufficiency The patient presented to the hospital with a constellation of respiratory symptoms, which did not improve despite outpatient antibiotic treatment. Her chest x-ray revealed a potential early right lower lobe infiltrate. Agree with continuing antimicrobials for now. COVID testing was sent and is currently pending. Wean supplemental oxygen to maintain saturations at or above 90%. Encourage incentive spirometer use while in bed. 2. Hypertension/depression/GERD/hypothyroidism Complicates care, management, recovery and prognosis. Continue home medications as indicated. This note was generated with [employer] software. It may contain incorrect words, spelling, and punctuation that were not noted in checking the note before signing. Inpatient E&M: 34477 Subs Hosp L2
[2019-08-22 07:00] LABS: Absolute Lymphocyte Count 1.19 X10^3/uL (0.83-4.51); Absolute Neutrophil Count 5.4 X10^3/uL (2.0-7.7); Basophil# 0.02 X10^3/uL; Basophil% 0.3 % (0-1); Eosinophil# 0.31 X10^3/uL; Eosinophils% 4.1 % (0-5); Hematocrit 31.7 % (37-47); Lymphocyte # 1.19 X10^3/ul (4.0); Lymphocyte % 15.7 % (19-41); Mean Corp Hgb Conc 31.5 g/dL (32-36); Mean Corpuscular Hgb 27.8 pg (27.0-32.0); Mean Corpuscular Volume 88.1 fL (81-99); Mean Platelet Vol. 10.5 fl (6.2-12.0); Monocyte# 0.61 X10^3/uL; NRBC Flagged by Analyzer 0 % (0-5); Neutrophil # 5.43 X10^3/uL (2.7-7.7); Neutrophil % 71.6 % (47-70); Platelet Count 209 K/mm3 (150-450); RBC Distribution Width CV 14.4 % (11.6-14.6); RBC Distribution Width SD 47.1 fl (35.1-43.9); White Blood Count 7.6 K/mm3 (4.4-11.0)
[2019-08-22 07:24] LABS: ALB/GLOB Ratio 0.9 RATIO (0.9-2.4); AST(SGOT) 14 U/L (15-37); Alanine Aminotransfer ALT/SGPT 14 U/L (13-56); Albumin, Serum 2.7 g/dL (3.2-5.0); Alkaline Phosphatase 57 U/L (45-117); Anion Gap 6 (5-15); BUN 10 mg/dL (7-18); BUN/Creat Ratio 16.2 RATIO (10-20); Calcium,Total 8.4 mg/dL (8.5-10.1); Chloride 115 mmol/L (98-107); Creatinine, Serum 0.62 mg/dL (0.55-1.02); D-Dimer Quantitative (DVT/PE) 0.55 FEU/ug/m (0.27-0.49); EST Glomerular Filtration Rate 101 mL/min (>60); Est Glom Filt Rate - Afr Amer 122 mL/min (>60); Estimated Creatinine Clearance 48.72 ml/min; Glucose 105 mg/dL (74-106); Potassium 3.6 mmol/L (3.5-5.1); Protein, Total 5.7 g/dL (6.4-8.2); Sodium Level 145 mmol/L (136-145)
--- NOTE | 2019-08-22 07:55 | PCM.PN.HOSP ---
Subjective: Patient overnight with no acute events per self and per nursing report. Patient notes still coughing but lessened since day prior and she denies any significant dyspnea although with exertion minimal onset. Oxygenation testing performed this morning and patient maintained appropriate oxygenation on room air. Patient amenable to discharge and understands COVID testing is still pending with need for quarantine pending these results. She denies any nausea, vomiting, emesis, abdominal pain, diarrhea, headache at this time. She has had no fevers and no chills. Objective: Physical Examination: General: awake, alert, oriented x 3 and cooperative, seated upright in the MS bed, NAD, improved from day prior, less coughing during exam. Skin: normal color, turgor, no icterus, cyanosis. HEENT: AT/NC, EOMI, PERRLA, improved MMM. Lungs: Diminished breath sounds , greater bases, moderate effort, less coughing, no rales, ronchi or wheezing. Heart: Regular rate and rhythm; no gallop, rub audible. Abdomen: soft, NTTP, ND, normal BS. Extremities: no cyanosis, clubbing, or edema. Neurological: patient awake, alert, oriented x 3; cognitive function appears baseline intact; pupils equally reactive to light and accomodation; cranial nerves II-XII grossly normal, moving all 4 extremities, no focal deficits, strength improved, moderately globally decreased. Psychiatric: affect appears fatigued, improved, no acute evidence of depressive or anxiety feelings. Vitals/I&O's: Vital Signs Temp Pulse Resp BP Pulse Ox 97.8 F 68 18 115/51 L 96 08/22/19 02:00 08/22/19 02:00 08/22/19 02:00 08/22/19 02:00 08/22/19 02:00 Oxygen Flow Rate (L/min) 1 Oxygen Delivery Method Nasal Cannula Weight: 186 lb 8.177 oz Body Mass Index (BMI) 29.0 Intake and Output for Last 24 Hours 08/20/19 08/21/19 08/22/19 23:59 23:59 23:59 Intake Total 110 / 110 3674.58 / 3674.58 120 / 120 Output Total 250 / 250 550 / 550 950 / 950 Balance -140 / -140 3124.58 / 3124.58 -830 / -830 Microbiology Past 72 Hours 08/21/19 14:05 Urine, Clean Catch Streptococcus pneumoniae Antigen (M - Final 08/21/19 14:05 Urine, Clean Catch Legionella Antigen - Final 08/21/19 03:55 Mucosa - Nose Respiratory Panel (PCR) - Final Laboratory Results 08/20/19 20:49: COVID-19 ([facility]) Pending 08/21/19 11:55: Magnesium 1.8, Ferritin 81, Lactate Dehydrogenase 125, C-React Prot Ext Range 54.30 H 08/21/19 11:55: Procalcitonin 2.71 H 08/21/19 13:45: D-Dimer Quant (PE/DVT) 0.72 H* 08/22/19 06:30: WBC 7.6, RBC 3.60 L, Hgb 10.0 L, Hct 31.7 L, MCV 88.1, MCH 27.8, MCHC 31.5 L, RDW Std Deviation 47.1 H, RDW Coeff of Nancy 14.4, Plt Count 209, MPV 10.5, Immature Gran % (Auto) 0.300, Neut % (Auto) 71.6 H, Lymph % (Auto) 15.7 L, Cotton % (Auto) 8.0, Eos % (Auto) 4.1, Baso % (Auto) 0.3, Absolute Neuts (auto) 5.4, Absolute Lymphs (auto) 1.19, Nucleated RBC % 0 08/22/19 06:30: Sodium 145, Potassium 3.6, Chloride 115 H, Carbon Dioxide 24.0, Anion Gap 6, BUN 10, Creatinine 0.62, Estim Creat Clear Calc 48.72, Est GFR (MDRD) Af Amer 122, Est GFR (MDRD) Non-Af 101, BUN/Creatinine Ratio 16.2, Glucose 105, Calcium 8.4 L, Total Bilirubin 0.20, AST 14 L, ALT 14, Alkaline Phosphatase 57, Total Protein 5.7 L, Albumin 2.7 L, Globulin 3.0, Albumin/Globulin Ratio 0.9 08/22/19 06:30: D-Dimer Quant (PE/DVT) 0.55 H* Current Medications Acetaminophen (Tylenol) 650 mg PO Q6H PRN PRN PRN Reason: Pain Score 1-10/Temp > 100.7 F Last Admin: 08/21/19 09:33 Dose: 650 mg Documented by: Albuterol Sulfate (Proair Hfa (Sp) Surgery/Vent Pts) 2 puff INHALATION Q4 ESCOBAR Last Admin: 08/22/19 05:20 Dose: 2 puff Documented by: Albuterol Sulfate (Proair Hfa (Sp) Surgery/Vent Pts) 2 puff INHALATION Q4H PRN PRN PRN Reason: dyspnea, wheezing Albuterol/Ipratropium (Duoneb) 3 ml INHALATION Q4H.RT PRN PRN Reason: SOB/WHEEZING Benzonatate (Tessalon Perle) 100 mg PO TID PRN PRN PRN Reason: COUGH Last Admin: 08/22/19 01:56 Dose: 100 mg Documented by: Dextrose (D50w Syringe) 0 gm IV X1 PRN; Protocol PRN Reason: Hypoglycemia Enoxaparin Sodium (Lovenox) 40 mg SC DAILY [facility] Last Admin: 08/21/19 09:26 Dose: 40 mg Documented by: Glucagon () 1 mg IM .X1 PRN PRN Reason: Hypoglycemia Guaifenesin (Mucinex) 1,200 mg PO BID [facility] Last Admin: 08/21/19 21:57 Dose: 1,200 mg Documented by: Hydralazine HCl (Apresoline Iv) 10 mg IV Q4H PRN PRN PRN Reason: SBP > 160 Sodium Chloride () 250 mls @ 15 mls/hr IV .[id number] PRN PRN Reason: Saline Flush Sodium Chloride () 250 mls @ 15 mls/hr IV .[id number] PRN PRN Reason: Additional IVPB Infusion Last Infusion: 08/21/19 13:00 Dose: Infused Documented by: Azithromycin 500 mg/ Dextrose 255 mls @ 250 mls/hr IV Q24H [facility] Last Infusion: 08/21/19 23:35 Dose: Infused Documented by: Ceftriaxone Sodium (Rocephin) 1 gm in 50 mls @ 100 mls/hr IV Q24H [facility] Last Infusion: 08/21/19 22:27 Dose: Infused Documented by: Sodium Chloride () 1,000 mls @ 100 mls/hr IV .Q10H [facility] Last Infusion: 08/21/19 23:35 Dose: 100 mls/hr Documented by: Levothyroxine Sodium (Synthroid) 25 mcg PO DAILY@0600 [facility] Last Admin: 08/22/19 05:20 Dose: 25 mcg Documented by: Lisinopril (Zestril) 10 mg PO DAILY [facility] Last Admin: 08/21/19 09:26 Dose: 10 mg Documented by: Loratadine (Claritin) 5 mg PO DAILY [facility] Last Admin: 08/21/19 09:26 Dose: 5 mg Documented by: Melatonin (Melatonin) 3 mg PO QHS PRN PRN PRN Reason: INSOMNIA Montelukast Sodium (Singulair) 10 mg PO DAILY [facility] Last Admin: 08/21/19 09:26 Dose: 10 mg Documented by: Ondansetron HCl (Zofran) 4 mg IV Q8H PRN PRN PRN Reason: NAUSEA/VOMITING Oxybutynin Chloride (Ditropan) 5 mg PO DAILY [facility] Last Admin: 08/21/19 09:26 Dose: 5 mg Documented by: Pantoprazole Sodium (Protonix) 20 mg PO DAILY [facility] Last Admin: 08/21/19 09:26 Dose: 20 mg Documented by: Sertraline HCl (Zoloft) 50 mg PO DAILY [facility] Last Admin: 08/21/19 09:26 Dose: 50 mg Documented by: Sodium Chloride () 10 - 40 ml IV UD PRN PRN Reason: SALINE FLUSH Medical Necessity - Tobacco Use Smoking Status: Never smoker Assessment/Plan All Active Problems Suspected 2019 novel coronavirus infection (Acute) Respiratory failure with hypoxia (Acute) Exacerbation of asthma (Acute) The patient is a 74 y/o F w/ PMHx: Asthma w/ Allergic Rhinitis, HTN, GERD, Anxiety and Depression, Hypothyroidism who presents to the [facility] ED on 08/20/19 with history of progressively worsening dry cough as well as dyspnea with fever 102 prior to ED presentation with treatment of bronchitis outpatient approximately 2 weeks prior with amoxicillin at that time. 1. Acute Dyspnea, Cough, Fever with RLL Pneumonia secondary to Possible CAP versus Acute Viral Syndrome, COVID-19: ED initial evaluation with T 99.7, heart rate 95, BP 134/69, respiratory rate 24, initially 85% on room air with improvement to 96% on 3 L nasal cannula, CBC with WBC 15.6, hemoglobin 12.6, platelet 244 with left shift with concurrent lymphopenia, lactic acid 1.1, chest x-ray with bilateral atelectasis, negative respiratory viral panel. Patient admitted to the COVID unit, continued on azithromycin and Rocephin therapy, maintained on telemetry monitoring, continued on oxygen therapy with wean to room air as possible, repeat a.m. chest x-ray 08/21/2019 with progressive right basilar atelectasis and/or infiltrate compared to prior. Sputum culture pending, negative urine antigens, negative respiratory viral panel, pro calcitonin 2.71, CRP 54.3, LDH 125, ferritin 81, hepatic profile not market appearing, pending coronavirus testing. D-dimer obtained and noted to be 0.72 however there is normal once age-adjusted and repeat further decreased. Given patient clinical improvement decision to transition to oral antibiotic therapy with discharge to home on azithromycin, Omnicef, PRN albuterol agent as well as cough regimen with follow-up with primary care physician encouraged. 2. Chronic asthma with allergic rhinitis: Scheduled albuterol, PRN albuterol both MDI given presentation, encourage head of bed, I-S, continue patient home Singulair regimen. 3. Hypertension: Continue home regimen including lisinopril, PRN hydralazine. 4. Hypothyroidism: Continue home synthroid regimen. 5. Anxiety and Depression: We will continue patient home sertraline regimen. 6. GERD: Maintain on home PPI. 7. DVT prophylaxis: SCDs, Lovenox. 8. CODE STATUS: Full code.
[2019-08-22 08:17] VITALS: BP 114/60; PULSE 76; RESP 20; TEMP 37; O2SAT 96
[2019-08-22] MEDS: Sertraline 50 MG Tablet PO (08:21)
[2019-08-22] MEDS: Oxybutynin 5 MG Tablet PO (08:21)
[2019-08-22] MEDS: Enoxaparin 40 MG/0.4 ML Syringe SC (08:21)
[2019-08-22] MEDS: Montelukast 10 MG Tablet PO (08:21)
[2019-08-22] MEDS: Pantoprazole Sodium 20 MG Tablet PO (08:21)
[2019-08-22] MEDS: guaiFENesin 1,200 MG Tablet 1200 MG PO (08:21)
[2019-08-22] MEDS: Loratadine 10 MG Tablet 5 MG PO (08:21)
[2019-08-22] MEDS: 0.9% Normal Saline 1,000 ML 100 ML IV (08:22)
[2019-08-22] MEDS: Lisinopril 10 MG Tablet PO (08:24)
[2019-08-22 08:26] VITALS: O2SAT 96
[2019-08-22 11:02] VITALS: O2SAT 94
--- NOTE | 2019-08-22 11:03 | PCM.DC ---
- Discharge Diagnoses Current Active Problems: Current Active and Chronic Problems 1. Acute Hypoxic Respiratory Failure secondary to RLL Pneumonia secondary to CAP versus Acute Viral Syndrome, COVID-19 2. Chronic asthma with allergic rhinitis 3. Hypertension 4. Hypothyroidism 5. Anxiety and Depression 6. GERD You will use the following diet at home:: Cardiac Your food should be the consistency of: Regular Your liquids should be the consistency of: Regular/Thin Discharge Activity: - - Please continue routine activity at home with assist devices as needed. Avoid aggressive activity until acute infection resolved. Also, please continue to practice quarantine given COVID-19 testing is still pending at your discharge. Call your doctor if you observe: Fever of 101 or Higher, Inability to urinate, Inability to have a bowel movement, Shortness of breath, Dizziness, Fainting spells, Chest pain, Uncontrolled pain Instructions: What Is Pneumonia?, Preventing Pneumonia, Treating Pneumonia Additional Instructions: Please continue your antibiotics for pneumonia treatment until they are finished. Please use your albuterol as needed; however, if necessary you may also use it scheduled every 6 hours and every 2 hours as needed for shortness of breath concurrently until you complete your antibiotics if you have more improvement and sensation of less shortness of breath. COVID-19 testing pending upon discharge. Please contact the [facility] regarding your results if you have not heard by 08/24/19 for an update. COVID-19 DISCHARGE PLAN: General discharge information: ?Patient needs to be able to call for assistance if worsens. ?Household members must have access to PPE and willing to adhere to precaution measures at home. ?The patient needs to have access to a separate bedroom and bathroom. 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 Home going instructions: ?Patient to continue similar isolation as in hospital and those also in the home to continue precautions until isolation complete or if COVID-19 testing is negative. ?Patient must continue twice daily temperature checks, in the AM and evening and notify the health department of any changes (If COVID-19 positive or their primary care if pending testing). Transmission-based Precaution Timeline: ?Patients with a confirmed or high suspicion of COVID-19 should remain under home isolation precautions for 7 days or until 72 hours after complete resolution of fever and symptoms (cough, dyspnea, myalgia, sore throat) without antipyretic medication. ?Further testing is not required beyond this unless there was noted organ dysfunction. ?If COVID-19 testing is pending upon discharge, [facility] () will contact you if the result is positive. Please contact hospital for results if you have not heard from by 08/24/19. Follow-up Care: ?The primary care should be informed of a COVID-19 positive test if resulted while in the hospital. ?Please consider early virtual primary visit follow-up upon their discharge and follow-up to review temperature journal and symptom review, especially if testing results positive. Allergies/Adverse Reactions: Allergies meperidine [From Demerol] Allergy (Verified 08/20/19 20:18) Other Medications to take at Discharge Glucosamine/MSM/Chondroitin A [Glucosamine Chondroit MSM Tab] 1 each PO DAILY 02/26/16 Levocetirizine Dihydrochloride [Xyzal] 5 mg PO DAILY 02/26/16 Lisinopril [Zestril] 10 mg PO DAILY 02/26/16 Omeprazole [Prilosec] 20 mg PO DAILY 02/26/16 Oxybutynin [Ditropan] 5 mg PO DAILY 02/26/16 Sertraline HCl [Zoloft] 50 mg PO DAILY 02/26/16 Acetaminophen [Tylenol] 1,000 mg PO Q8 08/20/19 Levothyroxine [Synthroid] 25 mcg PO DAILY 08/20/19 Montelukast Sodium [Singulair] 10 mg PO DAILY 08/20/19 Albuterol IH (ProAir) [Proair Hfa] 2 puff INHALATION Q4H PRN PRN #1 inhaler 08/22/19 Azithromycin 500 mg PO DAILY #3 tab 08/22/19 Benzonatate [Tessalon Perle] 100 mg PO TID PRN PRN #30 cap 08/22/19 Cefdinir [Omnicef [equiv]] 300 mg PO Q12H #10 cap 08/22/19 Guaifenesin [Mucinex] 1,200 mg PO BID #20 tab 08/22/19 The following prescriptions were given: Azithromycin 500 mg PO DAILY #3 tab Transmission Status: Pending to [facility] Guaifenesin [Mucinex] 1,200 mg PO BID #20 tab Transmission Status: Pending to [facility] Cefdinir [Omnicef [equiv]] 300 mg PO Q12H #10 cap Transmission Status: Pending to [facility] Albuterol IH (ProAir) [Proair Hfa] 2 puff INHALATION Q4H PRN PRN #1 inhaler PRN Reason: dyspnea, wheezing Transmission Status: Pending to [facility] Benzonatate [Tessalon Perle] 100 mg PO TID PRN PRN #30 cap PRN Reason: COUGH Transmission Status: Pending to [facility] Primary Care Physician: Nj Meraz MD [Primary Care Provider] - Please follow up with your Primary Care Physician in: Please follow-up within 3-5 days. Test Results: Test results from this visit will be discussed in further detail at your follow-up appointment, if applicable. Proposed Discharge Date: 08/22/19
--- NOTE | 2019-08-22 11:08 | PCM.DC.SUM ---
Discharge Date and Diagnosis Date of Admission: 08/20/19 Date of Discharge: 08/22/19 - Primary Discharge Diagnosis Active and Suspected Problems 1. Acute Hypoxic Respiratory Failure secondary to RLL Pneumonia secondary to CAP versus Acute Viral Syndrome, COVID-19 2. Chronic asthma with allergic rhinitis 3. Hypertension 4. Hypothyroidism 5. Anxiety and Depression 6. GERD - Secondary Discharge Diagnosis Chronic Problems Hypertension (Chronic) Asthma (Chronic) Hospital Course and Treatment Dr. Santiago Pulmonary/ICU Procedures: EKG Summary of Care Provided: The patient is a 74 y/o F w/ PMHx: Asthma w/ Allergic Rhinitis, HTN, GERD, Anxiety and Depression, Hypothyroidism who presented to the [facility] ED on 08/20/19 with history of progressively worsening dry cough as well as dyspnea with fever 102 prior to ED presentation with treatment of bronchitis outpatient approximately 2 weeks prior with amoxicillin at that time. ED initial evaluation with T 99.7, heart rate 95, BP 134/69, respiratory rate 24, initially 85% on room air with improvement to 96% on 3 L nasal cannula, CBC with WBC 15.6, hemoglobin 12.6, platelet 244 with left shift with concurrent lymphopenia, lactic acid 1.1, chest x-ray with bilateral atelectasis, negative respiratory viral panel. Patient admitted to the COVID unit, continued on azithromycin and Rocephin therapy, maintained on telemetry monitoring, continued on oxygen therapy with wean to room air as possible, repeat a.m. chest x-ray 08/21/2019 with progressive right basilar atelectasis and/or infiltrate compared to prior. Sputum culture pending, negative urine antigens, negative respiratory viral panel, pro calcitonin 2.71, CRP 54.3, LDH 125, ferritin 81, hepatic profile not market appearing, pending coronavirus testing. D-dimer obtained and noted to be 0.72 however there is normal once age-adjusted and repeat further decreased. Given patient clinical improvement decision to transition to oral antibiotic therapy with discharge to home on azithromycin, Omnicef, PRN albuterol agent as well as cough regimen with follow-up with primary care physician encouraged. Oxygenation testing performed prior to discharge to home and patient required no supplementation. - Physical Exam Vitals/I&O's: Vital Signs Temp Pulse Resp BP Pulse Ox 98.6 F 76 20 H 114/60 94 08/22/19 08:17 08/22/19 08:17 08/22/19 08:17 08/22/19 08:17 08/22/19 11:02 Oxygen Flow Rate (L/min) 1 Oxygen Delivery Method Room Air Weight: 186 lb 8.177 oz Body Mass Index (BMI) 29.0 Intake and Output for Last 24 Hours 08/20/19 08/21/19 08/22/19 23:59 23:59 23:59 Intake Total 110 / 110 3674.58 / 3674.58 998.33 / 998.33 Output Total 250 / 250 550 / 550 950 / 950 Balance -140 / -140 3124.58 / 3124.58 48.33 / 48.33 Microbiology Past 72 Hours 08/21/19 14:05 Urine, Clean Catch Streptococcus pneumoniae Antigen (M - Final 08/21/19 14:05 Urine, Clean Catch Legionella Antigen - Final 08/21/19 03:55 Mucosa - Nose Respiratory Panel (PCR) - Final Laboratory Results 08/21/19 11:55: Magnesium 1.8, Ferritin 81, Lactate Dehydrogenase 125, C-React Prot Ext Range 54.30 H 08/21/19 11:55: Procalcitonin 2.71 H 08/21/19 13:45: D-Dimer Quant (PE/DVT) 0.72 H* 08/22/19 06:30: WBC 7.6, RBC 3.60 L, Hgb 10.0 L, Hct 31.7 L, MCV 88.1, MCH 27.8, MCHC 31.5 L, RDW Std Deviation 47.1 H, RDW Coeff of Nancy 14.4, Plt Count 209, MPV 10.5, Immature Gran % (Auto) 0.300, Neut % (Auto) 71.6 H, Lymph % (Auto) 15.7 L, [place] % (Auto) 8.0, Eos % (Auto) 4.1, Baso % (Auto) 0.3, Absolute Neuts (auto) 5.4, Absolute Lymphs (auto) 1.19, Nucleated RBC % 0 08/22/19 06:30: Sodium 145, Potassium 3.6, Chloride 115 H, Carbon Dioxide 24.0, Anion Gap 6, BUN 10, Creatinine 0.62, Estim Creat Clear Calc 48.72, Est GFR (MDRD) Af Amer 122, Est GFR (MDRD) Non-Af 101, BUN/Creatinine Ratio 16.2, Glucose 105, Calcium 8.4 L, Total Bilirubin 0.20, AST 14 L, ALT 14, Alkaline Phosphatase 57, Total Protein 5.7 L, Albumin 2.7 L, Globulin 3.0, Albumin/Globulin Ratio 0.9 08/22/19 06:30: D-Dimer Quant (PE/DVT) 0.55 H* Current Medications Acetaminophen (Tylenol) 650 mg PO Q6H PRN PRN PRN Reason: Pain Score 1-10/Temp > 100.7 F Last Admin: 08/21/19 09:33 Dose: 650 mg Documented by: Albuterol Sulfate (Proair Hfa (Sp) Surgery/Vent Pts) 2 puff INHALATION Q4 ESCOBAR Last Admin: 08/22/19 08:25 Dose: 2 puff Documented by: Albuterol Sulfate (Proair Hfa (Sp) Surgery/Vent Pts) 2 puff INHALATION Q4H PRN PRN PRN Reason: dyspnea, wheezing Albuterol/Ipratropium (Duoneb) 3 ml INHALATION Q4H.RT PRN PRN Reason: SOB/WHEEZING Benzonatate (Tessalon Perle) 100 mg PO TID PRN PRN PRN Reason: COUGH Last Admin: 08/22/19 01:56 Dose: 100 mg Documented by: Dextrose (D50w Syringe) 0 gm IV X1 PRN; Protocol PRN Reason: Hypoglycemia Enoxaparin Sodium (Lovenox) 40 mg SC DAILY [facility] Last Admin: 08/22/19 08:21 Dose: 40 mg Documented by: Glucagon () 1 mg IM .X1 PRN PRN Reason: Hypoglycemia Guaifenesin (Mucinex) 1,200 mg PO BID [facility] Last Admin: 08/22/19 08:21 Dose: 1,200 mg Documented by: Hydralazine HCl (Apresoline Iv) 10 mg IV Q4H PRN PRN PRN Reason: SBP > 160 Sodium Chloride () 250 mls @ 15 mls/hr IV .[id number] PRN PRN Reason: Saline Flush Sodium Chloride () 250 mls @ 15 mls/hr IV .[id number] PRN PRN Reason: Additional IVPB Infusion Last Infusion: 08/21/19 13:00 Dose: Infused Documented by: Azithromycin 500 mg/ Dextrose 255 mls @ 250 mls/hr IV Q24H [facility] Last Infusion: 08/21/19 23:35 Dose: Infused Documented by: Ceftriaxone Sodium (Rocephin) 1 gm in 50 mls @ 100 mls/hr IV Q24H [facility] Last Infusion: 08/21/19 22:27 Dose: Infused Documented by: Sodium Chloride () 1,000 mls @ 100 mls/hr IV .Q10H [facility] Last Admin: 08/22/19 08:22 Dose: 100 mls/hr Documented by: Levothyroxine Sodium (Synthroid) 25 mcg PO DAILY@0600 [facility] Last Admin: 08/22/19 05:20 Dose: 25 mcg Documented by: Lisinopril (Zestril) 10 mg PO DAILY [facility] Last Admin: 08/22/19 08:24 Dose: 10 mg Documented by: Loratadine (Claritin) 5 mg PO DAILY [facility] Last Admin: 08/22/19 08:21 Dose: 5 mg Documented by: Melatonin (Melatonin) 3 mg PO QHS PRN PRN PRN Reason: INSOMNIA Montelukast Sodium (Singulair) 10 mg PO DAILY [facility] Last Admin: 08/22/19 08:21 Dose: 10 mg Documented by: Ondansetron HCl (Zofran) 4 mg IV Q8H PRN PRN PRN Reason: NAUSEA/VOMITING Oxybutynin Chloride (Ditropan) 5 mg PO DAILY [facility] Last Admin: 08/22/19 08:21 Dose: 5 mg Documented by: Pantoprazole Sodium (Protonix) 20 mg PO DAILY [facility] Last Admin: 08/22/19 08:21 Dose: 20 mg Documented by: Sertraline HCl (Zoloft) 50 mg PO DAILY [facility] Last Admin: 08/22/19 08:21 Dose: 50 mg Documented by: Sodium Chloride () 10 - 40 ml IV UD PRN PRN Reason: SALINE FLUSH Discharge Activity: - - Please continue routine activity at home with assist devices as needed. Avoid aggressive activity until acute infection resolved. Also, please continue to practice quarantine given COVID-19 testing is still pending at your discharge. Call your doctor if you observe: Fever of 101 or Higher, Inability to urinate, Inability to have a bowel movement, Shortness of breath, Dizziness, Fainting spells, Chest pain, Uncontrolled pain Home Medications: Medications to take at Discharge Glucosamine/MSM/Chondroitin A [Glucosamine Chondroit MSM Tab] 1 each PO DAILY 02/26/16 Levocetirizine Dihydrochloride [Xyzal] 5 mg PO DAILY 02/26/16 Lisinopril [Zestril] 10 mg PO DAILY 02/26/16 Omeprazole [Prilosec] 20 mg PO DAILY 02/26/16 Oxybutynin [Ditropan] 5 mg PO DAILY 02/26/16 Sertraline HCl [Zoloft] 50 mg PO DAILY 02/26/16 Acetaminophen [Tylenol] 1,000 mg PO Q8 08/20/19 Levothyroxine [Synthroid] 25 mcg PO DAILY 08/20/19 Montelukast Sodium [Singulair] 10 mg PO DAILY 08/20/19 Albuterol IH (ProAir) [Proair Hfa] 2 puff INHALATION Q4H PRN PRN #1 inhaler 08/22/19 Azithromycin 500 mg PO DAILY #3 tab 08/22/19 Benzonatate [Tessalon Perle] 100 mg PO TID PRN PRN #30 cap 08/22/19 Cefdinir [Omnicef [equiv]] 300 mg PO Q12H #10 cap 08/22/19 Guaifenesin [Mucinex] 1,200 mg PO BID #20 tab 08/22/19 Following Prescrptions Were Given to Patient: Azithromycin 500 mg PO DAILY #3 tab Transmission Status: Received by [facility] Guaifenesin [Mucinex] 1,200 mg PO BID #20 tab Transmission Status: Received by [facility] Cefdinir [Omnicef [equiv]] 300 mg PO Q12H #10 cap Transmission Status: Received by [facility] Albuterol IH (ProAir) [Proair Hfa] 2 puff INHALATION Q4H PRN PRN #1 inhaler PRN Reason: dyspnea, wheezing Transmission Status: Received by [facility] Benzonatate [Tessalon Perle] 100 mg PO TID PRN PRN #30 cap PRN Reason: COUGH Transmission Status: Received by [facility] Primary Care Physician: Nj Meraz MD [Primary Care Provider] - Please follow up with your Primary Care Physician in: Please follow-up within 3-5 days. Patient Instructions: What Is Pneumonia?, Preventing Pneumonia, Treating Pneumonia Disposition: Home Minutes spent on discharge:: 35 Patient Condition:: Fair Medical Necessity - Tobacco Use Smoking Status: Never smoker Meaningful Use Info Meaningful Use Diagnoses (Choose all that apply): None applicable Inpatient E&M: 34064 Disch Hosp
--- NOTE | 2019-08-24 14:23 | CASEMGMT ---
DEEPA SOLOMON Discharge Follow-up Phone Call: SUZANNEDwayne: Cassie Strata: 3 Call Date: 08/24/2019 Discharge Date: 08/22/2019 Time of Call: 1420 Duration: 5 min Admitting Diagnosis: suspected Covid-19 DEEPA SOLOMON completed follow-up phone call after recent hospitalization. Patient states that she is still weak but doing alright. Patient was able to fill all prescriptions without any issues. Patient had no questions regarding discharge instructions. Patient states that she will call PCP to schedule appt. No further questions or concerns at this time.
== END 2019-08-22 12:40 | disposition home or self-care (01) | DRG 193 ==
LOC: ED 21:30 → ICU 22:40 → MS2 08-21 11:46
PROVIDERS: Admitting Provider Hospitalist; Emergency Provider Emergency Medicine; PCP Family Medicine; Visit Provider Family Medicine
DX: J18.9 Pneumonia, unspecified organism (principal); J96.01 Acute respiratory failure with hypoxia; J45.901 Unspecified asthma with (acute) exacerbation; J98.11 Atelectasis; B34.9 Viral infection, unspecified; I10 Essential (primary) hypertension; E03.9 Hypothyroidism, unspecified; K21.9 Gastro-esophageal reflux disease without esophagitis; F32.9 Major depressive disorder, single episode, unspecified; F41.9 Anxiety disorder, unspecified; Z79.890 Hormone replacement therapy; Z79.899 Other long term (current) drug therapy
CPT/HCPCS: 36415; 71045; 80048; 80053; 82728; 83605; 83615; 83735; 84145; 85025; 85379; 86140; 87040; 87070; 87205; 87449; 87633; 87635; 93005; 94667; 94668; 96361; 96365; 99251; 99285; J7030; J7050; G0463; U0004

== ENCOUNTER 2020-01-18 07:53 | Day surgery (SDC) | payer MEDICARE, OTHER, SELFPAY ==
[2020-01-13 09:37] VITALS: BMI 26.9
--- NOTE | 2020-01-13 10:54 | RAD_ITS ---
STUDY: X-RAY CHEST REASON FOR EXAM: Female, 74 years old. CHEST TIGHTNESS, DYSPNEA, NEAR SYNCOPE TECHNIQUE: 2 views COMPARISON: Prior chest radiograph of 08/21/2019, 08/20/2019 and 02/19/2019 FINDINGS: The lungs are clear and expanded. There is no demonstrated pleural abnormality. Normal size heart. Normal mediastinum and sandra. Normal visualized pulmonary arteries. There is atherosclerotic calcification of the aortic arch with tortuosity. There are diffuse degenerative changes of the visualized thoracic spine with demineralized osseous structures. Normal visualized ribs, clavicles, and shoulders. There is no demonstrated abnormality of the visualized soft tissue structures of the upper abdomen. RAD/Chest PA and Lateral IMPRESSION: No acute cardiopulmonary findings or changes. Negative for new consolidation, infiltrates, atelectasis, cardiomegaly or pleural effusion. Atherosclerotic changes of the thoracic aorta. Electronically Signed: Joyce Hough MD at 23:30 EDT , Service support ,
[2020-01-13 12:02] LABS: Absolute Lymphocyte Count 1.62 X10^3/uL (0.83-4.51); Absolute Neutrophil Count 2.7 X10^3/uL (2.0-7.7); Basophil# 0.03 X10^3/uL; Basophil% 0.6 % (0-1); Eosinophil# 0.16 X10^3/uL; Eosinophils% 3.2 % (0-5); Hematocrit 41.7 % (37-47); Hemoglobin 13.2 g/dL (12.0-15.0); Lymphocyte # 1.62 X10^3/ul (4.0); Lymphocyte % 32.5 % (19-41); Mean Corp Hgb Conc 31.7 g/dL (32-36); Mean Corpuscular Hgb 28.5 pg (27.0-32.0); Mean Corpuscular Volume 90.1 fL (81-99); Mean Platelet Vol. 10.2 fl (6.2-12.0); NRBC Flagged by Analyzer 0 % (0-5); Neutrophil # 2.67 X10^3/uL (2.7-7.7); Neutrophil % 53.5 % (47-70); Platelet Count 238 K/mm3 (150-450); RBC Distribution Width CV 14.2 % (11.6-14.6); RBC Distribution Width SD 46.7 fl (35.1-43.9); Red Blood Count 4.63 M/mm3 (4.2-5.4)
[2020-01-13 12:36] LABS: Anion Gap 3 (5-15); BUN 16 mg/dL (7-18); BUN/Creat Ratio 20.6 RATIO (10-20); Calcium,Total 9.4 mg/dL (8.5-10.1); Chloride 106 mmol/L (98-107); Creatinine, Serum 0.78 mg/dL (0.55-1.02); EST Glomerular Filtration Rate 77 mL/min (>60); Est Glom Filt Rate - Afr Amer 94 mL/min (>60); Glucose 75 mg/dL (74-106); Potassium 4.1 mmol/L (3.5-5.1); Sodium Level 139 mmol/L (136-145)
[2020-01-15 10:57] VITALS: BMI 26.9
--- NOTE | 2020-01-18 08:13 | EKG12_ITS ---
Test Reason : PRE CATH Blood Pressure : / mmHG Vent. Rate : 058 BPM Atrial Rate : 058 BPM P-R Int : 138 ms QRS Dur : 082 ms QT Int : 354 ms P-R-T Axes : 061 023 -04 degrees QTc Int : 347 ms Sinus bradycardia Low voltage QRS Nonspecific ST and T wave abnormality Abnormal ECG Confirmed by ALFREDA FREDERICK, LOIS ([id number]), features editor MARCO ANTONIO BRIGHT ([id number]) on 01/22/2020 10:51:16 AM Referred By: Sushil Zavala Confirmed By:LOIS GANT MD
--- NOTE | 2020-01-18 10:02 | CL.D_ITS ---
Patient Name: ABIEL HILL Study Date: 01/18/2020 Performing: Sushil Zavala MD Ht: 66.92 inches 170 cm : 1945 Wt: 171.96 lbs 78 kg Age: 74 Gender: female BSA: 1.89 PROCEDURE(S) PERFORMED [id number] CLINICAL PROFILE AND INDICATIONS Indications: Suspected CAD Heart Failure: None Stress/Imaging Stress/Image Study Performed: No CAD Presentations: Symptom unlikely to be ischemic. CONCLUSIONS Normal coronary arteries Normal LV size, wall motion,and systolic function RECOMMENDATIONS Medical therapy DESCRIPTION OF PROCEDURE The patient arrived to the procedure lab. The risks and benefits of the procedure as well as a full d escription of our services here and current unavailability of surgical backup were fully explained to the patient and/or their significant other prior to the catheterization. The Timeout was completed, verifying the correct patient and procedure. The patient's procedural site was prepped and draped in the usual fashion. Local anesthetic was given subcutaneously to right radial region with Lidocaine 2% . Using a modified Seldinger technique, arterial access was obtained via the right radial artery, a 6 Fr sheath was inserted. Left Coronary Artery selective angiography was performed in multiple views u sing a 5 Fr. 4.0 Runnemede catheter. Right Coronary Artery selective angiography was then performed in mu ltiple views using a 5 Fr. 4.0 Runnemede catheter. Left Ventriculography was performed in BARRAZA projection using a 5 Fr. Pigtail catheter. LV to AO pullback pressures were then recorded.The arterial sheath was pulled and a TR Band was applied for hemostasis CORONARY ANGIOGRAPHY DOMINANCE: Right Dominant LEFT HEART ASSESSMENT Left Ventricular Ejection Fraction: by LV Gram 55 % Normal LV wall motion Normal Left Ventricular systolic function Normal Left Ventricular systolic function LEFT MAIN: Angiographically normal LEFT ANTERIOR DESCENDING ARTERY: Angiographically normal CIRCUMFLEX ARTERY: Angiographically normal RIGHT CORONARY ARTERY: Angiographically normal COMPLICATIONS PROCEDURE MEDICATIONS Versed 1 mg IV Fentanyl 50 mcg IV Oxygen: 2 L/min via nasal cannula Heparin diluted in 23cc Heparinized saline. Patient given 10cc IA of this solution. 01/18/2020 09:43: 46 Verapamil 2.5mg, Ntg 100mcgs, 2000 units of Heparin diluted in 23cc Heparinized saline. Patient give n 10cc IA of this solution. 01/18/2020 09:43:46 IV Bolus: .9 NaCl 150 ml total 01/18/2020 09:58:45 SUMMARY OF HEMODYNAMIC DATA Time AIR REST ECG 08:19:30 ECG 09:30:18 AO 93/50 (68) SA 09:45:29 LV 87/-10, -6 09:54:12 LV 91/-9, -6 09:54:20 LV 74/-7, -3 09:55:19 LV 79/-6, -1 09:55:27 LVp 88/-6, 0 09:55:40 AOp 93/28 (66) 09:55:45 Signed By Sushil Zavala MD On 01/18/2020 10:02:10 AM Sushil Zavala MD
== END 2020-01-18 12:30 | disposition home or self-care (01) ==
LOC: CLSP 07:56
PROVIDERS: PCP Family Medicine; Referring Provider Internal Medicine Cardiovascular Disease; Visit Provider Internal Medicine Cardiovascular Disease
DX: R07.89 Other chest pain (principal); R06.02 Shortness of breath; R42 Dizziness and giddiness; R55 Syncope and collapse; R53.83 Other fatigue; I10 Essential (primary) hypertension; J45.909 Unspecified asthma, uncomplicated; E03.9 Hypothyroidism, unspecified; M81.0 Age-related osteoporosis without current pathological fracture; Z79.82 Long term (current) use of aspirin; Z79.02 Long term (current) use of antithrombotics/antiplatelets; Z79.899 Other long term (current) drug therapy
CPT/HCPCS: 36415; 71046; 80048; 85025; 93005; 93458; 99152; 99153; J7040; Q9967; C1769; C1894

== ENCOUNTER → 2020-01-27 14:23 | Outpatient (CLI) | payer MEDICARE, OTHER, SELFPAY ==
[2020-01-15 10:57] VITALS: BMI 26.9
--- NOTE | 2020-01-27 14:50 | RAD_ITS ---
STUDY: X-RAY CHEST REASON FOR EXAM: Female, 75 years old. SOB TECHNIQUE: Frontal and lateral views of the chest COMPARISON: 13 August 2019 FINDINGS: The lungs are clear and expanded. There is no demonstrated pleural abnormality. Normal size heart. Normal mediastinum and sandra. Normal visualized pulmonary arteries. Normal visualized aortic arch and descending thoracic aorta. Normal visualized thoracic spine. Normal visualized ribs, clavicles, and shoulders. There is no demonstrated abnormality of the visualized soft tissue structures of the upper abdomen. RAD/Chest PA and Lateral IMPRESSION: Normal x-ray examination of the chest. Electronically Signed: Alva Holland, at 15:15 EDT Tel , Service support ,
[2020-01-27 15:00] LABS: Hematocrit 39.9 % (37-47); Hemoglobin 12.7 g/dL (12.0-15.0); Mean Corp Hgb Conc 31.8 g/dL (32-36); Mean Corpuscular Hgb 28.6 pg (27.0-32.0); Mean Corpuscular Volume 89.9 fL (81-99); Mean Platelet Vol. 10.4 fl (6.2-12.0); Platelet Count 216 K/mm3 (150-450); RBC Distribution Width CV 13.8 % (11.6-14.6); RBC Distribution Width SD 46.2 fl (35.1-43.9); Red Blood Count 4.44 M/mm3 (4.2-5.4); White Blood Count 4.9 K/mm3 (4.4-11.0)
[2020-01-27 15:15] LABS: Anion Gap 4 (5-15); BUN 17 mg/dL (7-18); Calcium,Total 9.2 mg/dL (8.5-10.1); Chloride 110 mmol/L (98-107); Creatinine, Serum 0.94 mg/dL (0.55-1.02); EST Glomerular Filtration Rate 62 mL/min (>60); Est Glom Filt Rate - Afr Amer 75 mL/min (>60); Glucose 85 mg/dL (74-106); Sodium Level 143 mmol/L (136-145)
[2020-01-27 15:16] LABS: BNP,B-Type NATRIURETIC PEPTIDE 192.9 pg/mL (0-100)
== END ==
PROVIDERS: PCP Family Medicine; Referring Provider Physician Assistant Medical; Visit Provider Physician Assistant Medical
DX: I10 Essential (primary) hypertension (principal); R42 Dizziness and giddiness; R06.00 Dyspnea, unspecified
CPT/HCPCS: 36415; 71046; 80048; 83880; 85027

== ENCOUNTER → 2020-02-11 12:50 | Outpatient (CLI) | payer MEDICARE, OTHER, SELFPAY ==
[2020-01-15 10:57] VITALS: BMI 26.9
--- NOTE | 2020-02-11 12:50 | ECHOD_ITS ---
Reason For Study: DYSPNEA Procedure This was a 2D Doppler, Color Flow transthoracic echocardiogram. Exam performed in department. Left Ventricle Normal LV size. Left ventricular systolic function is normal. The estimated ejection fraction is 60 %. Stage 1 diastolic dysfunction. No regional wall motion abnormalities noted. Right Ventricle Normal RV size. Normal systolic function. Atria Normal left atrium. Normal right atrium. Mitral Valve Normal mitral valve. Tricuspid Valve Normal tricuspid valve. Moderate (2+) tricuspid valve insufficiency. Pulmonary artery systolic pressure is 47 mmHg. Aortic Valve Normal aortic valve. Trisinus/trileaflet aortic valve. Mild (1+) eccentric aortic valve insufficiency. Pulmonic Valve Normal pulmonic valve. Great Vessels Normal aortic root. The pulmonary artery is normal size. Normal inferior vena cava. Pericardium/Pleural No pericardial effusion. MMode/2D Measurements & Calculations LVIDd: 4.6 cm IVSd: 0.87 cm Ao root diam: 3.4 cm LVIDs: 3.1 cm LVPWd: 0.84 cm RVDd: 2.9 cm FS: 33.0 % LAV(MOD-bp): 54.4 ml LVAd ap4: 20.8 cm2 SV(MOD-sp4): 34.8 ml LAV(MOD-bp) Indexed: 28.9 ml/m2 EDV(MOD-sp4): 58.0 ml LAV(MOD-sp2): 46.8 ml EDV(sp4-el): 59.4 ml LAV(MOD-sp4): 57.8 ml LVAs ap4: 11.9 cm2 ESV(MOD-sp4): 23.1 ml ESV(sp4-el): 22.9 ml EF(MOD-sp4): 60.1 % EF(sp4-el): 61.5 % SV(sp4-el): 36.5 ml LA A4 area: 20.0 cm2 LA dimension(2D): 4.1 cm RA A4 area: 16.5 cm2 Time Measurements MV dec time: 0.10 sec Doppler Measurements & Calculations MV E max live: 57.5 cm/sec Lat Peak E' Live: 4.8 cm/sec Med Peak E' Live: 4.8 cm/sec MV A max live: 72.8 cm/sec E/E' lat: 11.9 E/E' med: 12.0 MV E/A: 0.79 Ao V2 max: 123.4 cm/sec AI max live: 194.8 cm/sec LV V1 max: 116.4 cm/sec Ao max P.1 mmHg AI max P.2 mmHg LV V1 max P.4 mmHg AI dec slope: 139.4 cm/sec2 AI P1/2t: 409.2 msec PA V2 max: 107.9 cm/sec TR max live: 324.0 cm/sec TR max P.0 mmHg Interpretation Summary Normal LV size. Left ventricular systolic function is normal. The estimated ejection fraction is 60 %. Stage 1 diastolic dysfunction. Pulmonary artery systolic pressure is 47 mmHg. Ordering Physician: Susanna Doty Referring Physician: LOIS OCONNOR Performed By: Lexii Alicea, SILVESTRE, RVT
== END ==
PROVIDERS: PCP Family Medicine; Referring Provider Physician Assistant Medical; Visit Provider Physician Assistant Medical
DX: R06.02 Shortness of breath (principal)
CPT/HCPCS: 93306

== ENCOUNTER → 2020-02-15 06:41 | Outpatient (CLI) | payer MEDICARE, OTHER, SELFPAY ==
[2020-01-15 10:57] VITALS: BMI 26.9
--- NOTE | 2020-02-16 10:25 | PFT ---
INTRODUCTION: The patient is a 75-year-old female that presents for pulmonary function studies secondary to a diagnosis of dyspnea. Respiratory therapy reports good patient effort. Bronchodilators were used during testing. INTERPRETATION: Forced expiration spirometry demonstrates no evidence of a large airways obstructive ventilatory defect. There was no significant response to aerosolized bronchodilators. Spirograms are of good quality and plateau normally. Body plethysmography was performed and reveals lung volumes to be within normal limits. Diffusing capacity by single breath CO is also within normal limits at 98% of predicted. IMPRESSION: Grossly normal pulmonary function studies.
== END ==
PROVIDERS: PCP Family Medicine; Referring Provider Physician Assistant Medical; Visit Provider Physician Assistant Medical
DX: R06.00 Dyspnea, unspecified (principal)
CPT/HCPCS: 94060; 94726; 94729

== ENCOUNTER → 2020-05-03 11:24 | Outpatient (CLI) | payer MEDICARE, OTHER, SELFPAY ==
[2020-03-18 09:29] VITALS: BMI 26.3
[2020-05-03 14:19] LABS: Anion Gap 4 (5-15); BUN 15 mg/dL (7-18); BUN/Creat Ratio 19.4 RATIO (10-20); Calcium,Total 9.5 mg/dL (8.5-10.1); Chloride 105 mmol/L (98-107); Creatinine, Serum 0.78 mg/dL (0.55-1.02); EST Glomerular Filtration Rate 77 mL/min (>60); Est Glom Filt Rate - Afr Amer 94 mL/min (>60); Glucose 67 mg/dL (74-106); Sodium Level 139 mmol/L (136-145); Thyroid Stim Hormone (TSH) 4.01 uIU/mL (0.358-3.74)
== END ==
PROVIDERS: PCP Family Medicine; Visit Provider Physician Assistant Medical
DX: I47.1 Supraventricular tachycardia (principal)
CPT/HCPCS: 36415; 80048; 83735; 84443

== ENCOUNTER 2020-06-13 15:00 | Emergency (ER) | payer MEDICARE, OTHER, SELFPAY ==
[2020-03-18 09:29] VITALS: BMI 26.3
[2020-06-13 15:02] VITALS: BP 148/96; PULSE 55; RESP 16; TEMP 35.1; O2SAT 97; BMI 28.7
--- NOTE | 2020-06-13 15:51 | CT_ITS ---
STUDY: CT ABDOMEN AND PELVIS WITH CONTRAST REASON FOR EXAM: Female, 75 years old. ABD PAIN, HERNIA, LLQ PAIN SINCE SAT. RADIATION DOSAGE (If Supplied By Facility): CTDIvol = ( 9.87 ) mGy, DLP = ( 880.70 ) mGycm TECHNIQUE: Transaxial images were obtained from the dome of the diaphragm to the symphysis pubis without oral contrast. Oral and amp; IV Gastrografin and amp; 100mL Isovue-370 was administered. Sagittal and coronal images were reconstructed. Individualized dose optimization techniques were used for this CT. COMPARISON: 10/08/2018 FINDINGS: The visualized lung bases are unremarkable. The visualized portions of the heart are within normal limits. Normal liver. Normal gallbladder and extrahepatic biliary system. Normal spleen. Normal pancreas. Normal bilateral adrenal glands. Normal right kidney. Normal left kidney. Normal visualized stomach. Normal small intestine. Retained stool noted throughout the colon. There is non-visualization of the appendix. Normal abdominal aorta. Normal inferior vena cava. Normal retroperitoneum. Normal urinary bladder. Uterus is still present, the endometrium cannot be accurately evaluated with CT. There is a stable right inguinal fluid collection measuring approximately 5.04 x 1.68 x 2.95 cm There are diffuse degenerative changes of the visualized lumbar spine, and pelvis. Stable grade 1 spondylolisthesis at L5/S1 CT/Abdomen/Pelvis WITH Contrast IMPRESSION: No suspicious solid organ abnormality No CT evidence of an acute inflammatory process Retained stool throughout the colon Uterus is still present, the endometrium cannot be accurately evaluated with CT. Stable well-defined fluid collection in the right inguinal region Electronically Signed: Kwan Betts MD at 19:10 EST , Service support ,
[2020-06-13] MEDS: 0.9% Normal Saline 1,000 ML 150 ML IV (16:17)
--- NOTE | 2020-06-13 16:22 | ED.VIS.GEN ---
History of Present Illness Chief Complaint: Abd Pain Informant: Patient Onset: Days Context: Gradual Onset Timing: Waxes and wanes Current Severity: Moderate Maximum Severity: Moderate Narrative: Patient presents secondary to left lower quadrant abdominal pain. She had an inguinal hernia to that area for quite some time. Patient states that 2 days ago the pain was quite severe she does sat around all day. Pain is better now but not completely resolved. She went to her PCP today who reported that she had an nonreducible left inguinal hernia and sent her to the emergency room. Patient reports some mild nausea from pain. She last ate around noon today. 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 Tumor was taken;. Bilateral knee surgery. Foot surgery Smoking Status: Never smoker - Family History Maternal Family History: Family History (Last Reviewed 01/13/20 @ 10:[address] Sushil Zavala MD) Father CVA (cerebral vascular accident) Cancer Mother Heart disease Brother Heart disease Family History: Reports: Heart Disease Review of Systems General: Denies: Chills, Fever Cardiovascular: Denies: Chest pain Respiratory: Denies: Dyspnea, Cough Gastrointestinal: Reports: Abdominal pain, Nausea. Denies: Vomiting Skin: Denies: Rash Neurological: Denies: Headache Hematologic: Denies: Easy bruising, Easy bleeding Allergy: Denies: Uticaria Physical Exam Vital Signs/Narrative: Vital Signs Temp Pulse Resp BP Pulse Ox 06/13/20 15:02 95.2 F L 55 L 16 148/96 H 97 Inital Vital Signs reviewed: Yes General: Well nourished, Well developed Head: Normocephalic ENT: Moist mucous membranes Cardiovascular: Regular rate, Regular rhythm Respiratory: No distress, CTA bilaterally Abdomen: Soft, Tender - Left lower quadrant tenderness., - - I do not appreciate a hernia at this time. Skin: - - Cluster of erythematous lesions of the left lower quadrant. Neurological: Alert, Oriented x3 Psychological: Normal affect Diagnostic/Tx/Re-eval Impressions Abdomen/Pelvis CT 06/13/20 15:51 IMPRESSION: No suspicious solid organ abnormality No CT evidence of an acute inflammatory process Retained stool throughout the colon Uterus is still present, the endometrium cannot be accurately evaluated with CT. Stable well-defined fluid collection in the right inguinal region Electronically Signed: Kwan Betts MD at 19:10 EST , Service support , 06/13/20 15:51 Abdomen/Pelvis WITH Contrast [CT] Stat Laboratory Results 06/13/20 06/13/20 06/13/20 16:18 16:18 16:18 WBC 4.8 RBC 4.32 Hgb 12.7 Hct 38.4 MCV 88.9 MCH 29.4 MCHC 33.1 RDW Std Deviation 42.0 RDW Coeff of Nancy 13.0 Plt Count 214 MPV 10.2 Immature Gran % (Auto) 0.200 Neut % (Auto) 50.9 Lymph % (Auto) 33.3 [place] % (Auto) 11.4 H Eos % (Auto) 3.8 Baso % (Auto) 0.4 Absolute Neuts (auto) 2.4 Absolute Lymphs (auto) 1.58 Nucleated RBC % 0 PT 12.3 INR 1.0 APTT 26.3 Sodium 139 Potassium 4.6 Chloride 106 Carbon Dioxide 29.0 Anion Gap 4 L BUN 24 H Creatinine 0.99 Estim Creat Clear Calc 48.48 Est GFR (MDRD) Af Amer 70 Est GFR (MDRD) Non-Af 58 L BUN/Creatinine Ratio 24.2 H Glucose 87 Lactic Acid Calcium 9.3 06/13/20 16:18 WBC RBC Hgb Hct MCV MCH MCHC RDW Std Deviation RDW Coeff of Nancy Plt Count MPV Immature Gran % (Auto) Neut % (Auto) Lymph % (Auto) [place] % (Auto) Eos % (Auto) Baso % (Auto) Absolute Neuts (auto) Absolute Lymphs (auto) Nucleated RBC % PT INR APTT Sodium Potassium Chloride Carbon Dioxide Anion Gap BUN Creatinine Estim Creat Clear Calc Est GFR (MDRD) Af Amer Est GFR (MDRD) Non-Af BUN/Creatinine Ratio Glucose Lactic Acid 0.8 Calcium - Medical Decision Making Patient was given IV fluids. She declined anything for pain while here. Blood work is unremarkable. CT scan does not show evidence of inguinal hernia or any other acute abnormalities noted. In light of this and the area of red rash I do question if she may have shingles causing severe pain to this left side. I advised her I would not be surprised if she develops more lesions around her side over the next several days. If she did have a nonreducible hernia it has reduced and is not incarcerated at this time. ED Disposition - Plan for ED Patient: Disposition: Home or Assisted Living Diagnosis: Abdominal pain, Shingles Instructions: ED Shingles (Herpes Zoster), ED Abdominal Pain Unkn Cause Fem Prescriptions: Lidocaine [Lidoderm Patch] 1 patch TOPICAL DAILY #3 patch Transmission Status: Pending to [facility] Acyclovir [Zovirax] 800 mg PO 5X/DAY #35 tab Transmission Status: Pending to [facility] Referrals: Nj Meraz MD [Primary Care Provider] - 1 Week if not improving
[2020-06-13 16:26] LABS: Absolute Lymphocyte Count 1.58 X10^3/uL (0.83-4.51); Absolute Neutrophil Count 2.4 X10^3/uL (2.0-7.7); Basophil# 0.02 X10^3/uL; Basophil% 0.4 % (0-1); Eosinophil# 0.18 X10^3/uL; Eosinophils% 3.8 % (0-5); Hematocrit 38.4 % (37-47); Hemoglobin 12.7 g/dL (12.0-15.0); Lymphocyte # 1.58 X10^3/ul (4.0); Lymphocyte % 33.3 % (19-41); Mean Corp Hgb Conc 33.1 g/dL (32-36); Mean Corpuscular Hgb 29.4 pg (27.0-32.0); Mean Corpuscular Volume 88.9 fL (81-99); Mean Platelet Vol. 10.2 fl (6.2-12.0); Monocyte# 0.54 X10^3/uL; Monocyte% 11.4 % (0-10); NRBC Flagged by Analyzer 0 % (0-5); Neutrophil # 2.42 X10^3/uL (2.7-7.7); Neutrophil % 50.9 % (47-70); Platelet Count 214 K/mm3 (150-450); Red Blood Count 4.32 M/mm3 (4.2-5.4); White Blood Count 4.8 K/mm3 (4.4-11.0)
[2020-06-13 16:34] LABS: Prothrombin Time (Protime)PT. 12.3 SECONDS (11.7-14.9)
[2020-06-13 16:35] LABS: Partial Thromboplast Time 26.3 Seconds (24.1-36.2)
[2020-06-13 16:42] LABS: Anion Gap 4 (5-15); BUN 24 mg/dL (7-18); BUN/Creat Ratio 24.2 RATIO (10-20); Calcium,Total 9.3 mg/dL (8.5-10.1); Chloride 106 mmol/L (98-107); Creatinine, Serum 0.99 mg/dL (0.55-1.02); EST Glomerular Filtration Rate 58 mL/min (>60); Est Glom Filt Rate - Afr Amer 70 mL/min (>60); Estimated Creatinine Clearance 48.48 ml/min; Glucose 87 mg/dL (74-106); Potassium 4.6 mmol/L (3.5-5.1); Sodium Level 139 mmol/L (136-145)
[2020-06-13 16:56] LABS: Lactic Acid 0.8 mmol/L (0.4-1.9)
[2020-06-13 17:01] VITALS: BP 108/64; PULSE 55; RESP 18; O2SAT 98
[2020-06-13] MEDS: Lidocaine 5% Patch 1 PATCH TOPICAL (19:51)
[2020-06-13 19:57] VITALS: BP 155/96; PULSE 59; RESP 18; O2SAT 97
[2020-06-13] MEDS: Acyclovir 800 MG Tablet PO (19:58)
== END 2020-06-13 19:59 | disposition home or self-care (01) ==
PROVIDERS: Emergency Provider Emergency Medicine; PCP Family Medicine
DX: R10.32 Left lower quadrant pain (principal); B02.9 Zoster without complications; I10 Essential (primary) hypertension; E03.9 Hypothyroidism, unspecified; Z79.899 Other long term (current) drug therapy
CPT/HCPCS: 74177; 80048; 83605; 85025; 85610; 85730; 96360; 96361; 99283; J7030; Q9967; A4216

== ENCOUNTER 2020-08-18 11:45 | Day surgery (SDC) | payer MEDICARE, OTHER, SELFPAY ==
[2020-07-21 09:10] VITALS: BMI 28.1
--- NOTE | 2020-08-12 11:01 | EKG12_ITS ---
Test Reason : PREOP Blood Pressure : / mmHG Vent. Rate : 055 BPM Atrial Rate : 055 BPM P-R Int : 138 ms QRS Dur : 080 ms QT Int : 396 ms P-R-T Axes : 016 042 013 degrees QTc Int : 378 ms Sinus bradycardia with marked sinus arrhythmia Otherwise normal ECG Confirmed by ALFREDA FREDERICK, LOIS ([id number]), restaurant expeditor CYNTHIA MONIQUE ([id number]) on 08/15/2020 8:45:31 AM Referred By: Connor Hein Confirmed By:LOIS GANT MD
[2020-08-12 12:27] LABS: Hematocrit 41.7 % (37-47); Hemoglobin 13.1 g/dL (12.0-15.0); Mean Corp Hgb Conc 31.4 g/dL (32-36); Mean Corpuscular Hgb 28.3 pg (27.0-32.0); Mean Corpuscular Volume 90.1 fL (81-99); Mean Platelet Vol. 10.3 fl (6.2-12.0); Platelet Count 243 K/mm3 (150-450); RBC Distribution Width CV 13.5 % (11.6-14.6); Red Blood Count 4.63 M/mm3 (4.2-5.4); White Blood Count 4.3 K/mm3 (4.4-11.0)
[2020-08-12 13:05] LABS: Anion Gap 4 (5-15); BUN 18 mg/dL (7-18); BUN/Creat Ratio 23.9 RATIO (10-20); Calcium,Total 9.2 mg/dL (8.5-10.1); Chloride 109 mmol/L (98-107); Creatinine, Serum 0.75 mg/dL (0.55-1.02); EST Glomerular Filtration Rate 80 mL/min (>60); Est Glom Filt Rate - Afr Amer 97 mL/min (>60); Glucose 57 mg/dL (74-106); Sodium Level 142 mmol/L (136-145)
[2020-08-12 13:11] LABS: Thyroid Stim Hormone (TSH) 4.38 uIU/mL (0.358-3.74)
[2020-08-18] VITALS (8 sets, daily range): BP systolic 128–158; BP diastolic 66–83; PULSE 56–72; RESP 12–18; TEMP 36–36.6; O2SAT 95–98; BMI 28.5
--- NOTE | 2020-08-18 12:02 | HP.PCM_ITS ---
Problem List (1) Inguinal hernia of right side without obstruction or gangrene Status: Acute History and Physical Date of Admission: 08/18/20 Intake Visit Reasons: INCARCERATED INGUINAL HERNIA Chief Complaint: right groin pain Provisioning Analyst Required: No Is patient in pain?: Yes Allergies meperidine [From Demerol] Adverse Reaction (Mild, Verified 07/19/20 12:31) syncope Medications Levocetirizine Dihydrochloride [Xyzal] 5 mg PO DAILY 02/26/16 [History Confirmed 07/19/20] Sertraline HCl [Zoloft] 50 mg PO DAILY 02/26/16 [History Confirmed 07/19/20] Levothyroxine [Synthroid] 25 mcg PO DAILY 08/20/19 [History Confirmed 07/19/20] Montelukast Sodium [Singulair] 10 mg PO DAILY 08/20/19 [History Confirmed 07/19/20] calcium carbonate-vitamin D3 600 mg calcium-200 unit capsule 2 cap PO DAILY cap 01/08/20 [History Confirmed 07/19/20] multivitamin 1 tab PO DAILY 01/08/20 [History Confirmed 07/19/20] omeprazole 20 mg capsule,delayed release 20 mg PO BID cap 01/08/20 [History Confirmed 07/19/20] oxybutynin chloride 5 mg tablet,extended release 24 hr 5 mg PO DAILY tab 01/08/20 [History Confirmed 07/19/20] melatonin 3 mg capsule 3 mg PO HS PRN 01/13/20 [History Confirmed 07/19/20] metoprolol tartrate 25 mg tablet 12.5 mg PO BID #30 tab 04/28/20 [Rx Confirmed 07/19/20] Acyclovir [Zovirax] 800 mg PO 5X/DAY #35 tab 06/13/20 [Rx Confirmed 07/19/20] Lidocaine [Lidoderm Patch] 1 patch TOPICAL DAILY #3 patch 06/13/20 [Rx Confirmed 07/19/20] Is last menstrual period known: No Post menopausal: Yes Patient : No PFSH Medical History (Updated 07/19/20 @ 12:[address] Connor Hein MD) Inguinal hernia of right side without obstruction or gangrene (Acute) PSVT (paroxysmal supraventricular tachycardia) (Chronic) Essential hypertension (Chronic) Depression (Acute) History of colonic polyps (Acute) Asthma (Chronic) Hypothyroidism (Chronic) Osteoporosis (Chronic) Exacerbation of asthma (Resolved) Respiratory failure with hypoxia (Resolved) Suspected 2019 novel coronavirus infection (Ruled-out) Surgical History History of bunionectomy of both great toes (Resolved) History of left heart catheterization (Resolved 01/18/20) History of open reduction and internal fixation (ORIF) procedure (Resolved) History of ovarian cystectomy (Resolved) Family History (Updated 07/19/20 @ 12:32 by Evy Hazel) Father CVA (cerebral vascular accident) Cancer prostate Brother Heart disease Mother CHF (congestive heart failure) Social History (Updated 07/19/20 @ 12:[address] Connor Hein MD) Smoking Status: Never smoker alcohol intake: never HPI HPI HPI: ABIEL HILL, is a 75 F who presents to the office today for urgent surgical consultation regarding right groin pain. The patient is referred by Dr. Lu Barth and a written copy of my surgical consult and recommendations will be returned to her as well as forwarded on to Dr. Nj Meraz. Patient has known about a lump in her right groin for at least 2 years. She was seen at the [facility] emergency room just recently June 13, [address] Mariam Nguyen. Apparently at that time she was complaining of left lower quadrant left groin pain. She was diagnosed with shingles. A CT scan was obtained. This demonstrated a 5 x 1.6 x 2.9 cm fluid collection in the right inguinal region. It said that it was stable. I compared this film back to a previous film of October 08, 2018. Now the patient states that she is having searing pain in the right groin. She does not use tobacco but she does have a history of asthma. She has been having some coughing spells. She states that she has had a previous emergency abdominal surgery done in [facility] per Dr. Luna 20 years ago for a growth on the right colon. She states she is also had a gynecologic procedure for an ovarian cyst. That appears to have been done laparoscopically. She denies any previous inguinal hernia surgery. HPI HPI HPI: ABIEL HILL, is a 75 F who presents to the office today for ROS General General: Yes weight change; no appetite, fatigue, colon cancer, breast cancer or weakness HEENT HEENT: Yes eye surgery; no difficulty swallowing, eye injury, swollen glands or hoarseness Endo Endocrine: Yes thyroid disease; no diabetes mellitus, thyroid cancer, Hair loss, heat intolerance or cold intolerance Musc Musculoskeletal: Yes arthritis; no back problems, rheumatoid arthritis, gout or joint pain Cardio Cardiovascular: No murmur, pacemaker, heart disease, atrial fibrillation, high blood pressure, heart attack, heart stent, palpitations, shortness of breat with exertion or chest pain Psych Psychiatric: Yes depression; no anxiety or hearing voices Resp Respiratory: No shortness of breath, No sleep apnea, No cough, No COPD, Yes asthma, No emphysema, No wheezing Gastro Gastrointestinal: Yes abdominal pain, No nausea or vomiting, No diarrhea, No constipation, No blood in stool, Yes acid reflux, No hemorrhoids, No ulcers, No gallbladder problem, No black,tarry stools Jose Hematologic: No blood thinners, No blood disorders, No bleeding, No anemia, No blood clots Neuro Neurologic: No weakness Exam Const General: cooperative, comfortable, no acute distress Nutritional Appearance: average body habitus Orientation: alert, awake HENWI Head: normal to inspection Eyes General: appearance normal, both eyes and all related structures Resp Effort & Inspection: normal respiratory effort Auscultation: clear to auscultation bilaterally Cardio Rate: regular rate Rhythm: regular rhythm Heart Sounds: no murmurs GI Palpation: soft Auscultation: normal bowel sounds Other: Well-healed transverse incision right mid abdomen. Well-healed laparoscopic umbilical incision and small suprapubic port site Other: Right groin has a soft rubbery slightly mobile soft tissue mass. She is tender to even light palpation. Left groin is not remarkable. Right groin area is not reducible Musc Cervical Spine: normal cervical lordosis Skin Rashes: no rashes Neuro Cognition: normal cognition Extrem General: no calf tenderness Psych Affect: normal affect Assessment & Plan Problems 1. Inguinal hernia of right side without obstruction or gangrene K40.90 Plan Findings are suspicious for a right inguinal hernia possibly with a small amount of captured ascitic fluid. There is no evidence of any bowel involvement. I would not otherwise have a distinct reason for a cystic fluid collection of the right groin. It appears that is been present for a prolonged period of time. The patient has asthma. There is been some coughing recently. She may well have aggravated her condition. I propose for her a right groin exploration with anticipated inguinal herniorrhaphy. I have discussed utilization of mesh. We have discussed the technique, benefit, risk, alternatives. No guarantees of success have been offered. I do have some concerns regarding her asthma. 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 We will contact that office to see if there is anything in a very short time. That can be utilized to maximize her condition. Tentatively we will schedule her for operative intervention on July 21, 2020. She has had an opportunity to ask and have questions answered. I very much appreciate the kind opportunity of assisting with her surgical care. Copy: Dr. Lu Barth and Dr. Nj Meraz and Dr. Connor Hein M.D., F.A.C.S. Coding Level of Care Code 80595 Diagnoses Inguinal hernia of right side without obstruction or gangrene K40.90 I have re-examined the patient. There are no clinical changes since date of exam. Procedure Criteria Procedure Type: Elective COVID Risk Discussion: The surgeon/proceduralist and patient have discussed in detail the risk of exposure to and/or potential harm posed by the COVID-19 virus with having a surgery/procedure at this time versus the risk of delaying the surgery/procedure. It is not possible to know either the risk of delaying the surgery or procedure or chance of getting an infection with perfect accuracy, but a joint decision was made between the patient and the surgeon/proceduralist to proceed at this time with the scheduled surgery/procedure as indicated on the consent form.
[2020-08-18] MEDS: Budesonide Respules 0.5 MG/2 ML AMPUL.NEB. INHALATION (12:13)
[2020-08-18] MEDS: Cefazolin 2 GM in 0.9% Normal Saline 100 ML IV (13:45)
--- NOTE | 2020-08-18 13:46 | DCINST_ITS ---
Discharge Diet: Light diet - advance as tolerated - if you have questions about your diet instructions, please talk to you doctor. Discharge Activity: May Not Drive - for 1 week or while taking narcotic pain medicine. May shower in (days): 1 Lifting Restrictions: 10 pounds Call your doctor if your incision/area has: Continuous Slow Oozing, Sudden Increased Bleeding, Increased Pain/ Swelling, Increased Redness, Foul Smelling Discharge Call your doctor if you observe: Fever of 101 or Higher Suture Line Care: Avoid Pulling/Pushing, Avoid Pinching/Bending Additional Dressing/Incision Instructions:: Change or remove dressing in 4 days. Leave steri-strips in place for 1 week. Allergies/Adverse Reactions: Allergies meperidine [From Demerol] Adverse Reaction (Mild, Verified 08/18/20 12:29) syncope Medications to take at Discharge Levocetirizine Dihydrochloride [Xyzal] 5 mg PO DAILY 02/26/16 Sertraline HCl [Zoloft] 50 mg PO DAILY 02/26/16 Levothyroxine [Synthroid] 25 mcg PO DAILY 08/20/19 Montelukast Sodium [Singulair] 10 mg PO DAILY 08/20/19 multivitamin 1 tab PO DAILY 01/08/20 omeprazole 20 mg capsule,delayed release 20 mg PO BID cap 01/08/20 oxybutynin chloride 5 mg tablet,extended release 24 hr 5 mg PO BID tab 01/08/20 melatonin 3 mg capsule 3 mg PO HS PRN 01/13/20 Calcium Carb/Vitamin D [Os-Yo 500MG + D] 1 tablet PO DAILY@0800 08/11/20 Metoprolol Tartrate 12.5 mg PO BID 08/11/20 Orders to be completed after discharge: 12 Lead EKG [[facility]] Time Frame: 08/12/20, Location: None Selected Primary Care Physician: Nj Meraz MD [Primary Care Provider] - Test Results: Test results from this visit will be discussed in further detail at your follow- up appointment, if applicable. Please Follow Up With: Connor Hein MD - [phone] When: Call to make an appointment to be seen in about 10 days.
[2020-08-18] MEDS: Lidocaine 1% (30 ml sdv) 30 ML Vial (14:00)
[2020-08-18] MEDS: Bupivacaine Mpf 0.5% 30 ML VIAL (14:00)
--- NOTE | 2020-08-18 14:20 | HERN_PTH ---
PATIENT: ABIEL HILL [place] [facility] [id number] AGE/SX: 75/F ROOM: RE08/18/[address]: Dr. Connor Hein MD : [id number] BED: DIS: 08/18/2020 SPEC #: [id number] RECD: 08/19/20 08:02 STATUS: SHAUN SUSHMA #: [id number] ADORE: 08/18/20 14:[address]: Connor Hein DEPT: SURGICAL PATHOLOGY RECD BY: Irene Henry ENTERED: 08/19/20 08:21 SP TYPE: Hernia OTHR DR: Dr. Nj Meraz MD Tissues: HERNIA Procedures: Surgery Specimen Level II HEADER OPERATION: Femoral hernia repair with mesh PRE-OP DIAGNOSIS: Inguinal hernia TISSUE SUBMITTED: Hernia sac and contents MICROSCOPIC DIAGNOSIS Hernia sac and contents: A piece of mesothelial-lined fibroadipose and fibroconnective tissue, consistent with a hernia sac with moderate to marked chronic inflammation, lymphoid aggregate formation, favor benign and reactive changes. JANNY:jarrod 08/22/2020 MICROSCOPIC DESCRIPTION Slides are reviewed. GROSS DESCRIPTION Received in fixative is one container labeled with the patient's name and designated hernia sac and contents. The specimen consists of an irregular fragment of arredondo-yellow fibrofatty tissue measuring 5.5 x 5 x 2.8 cm. Serial sections do not reveal mass lesions. Band Director sections are submitted in two cassettes. / AM:jarrod 08/19/20 TC:5 CPT: 96055
--- NOTE | 2020-08-18 14:51 | OP.PCM_ITS ---
Problem List (1) Inguinal hernia of right side without obstruction or gangrene Status: Acute Report of Operation Date of Procedure: 08/18/20 Pre-Operative Diagnosis: Right inguinal hernia with ascitic fluid Post-Operative Diagnosis: Right femoral hernia with ascitic fluid Surgery/Procedure Performed:: Right femoral herniorrhaphy Description of Surgical Findings:: Timeout and informed consent was obtained. 75-year-old female was taken to the operating placement table initially underwent monitored anesthesia care. During procedure once I detected a femoral hernia I did asked the patient be converted to a general and an LMA was placed. This facilitated her comfort. The right groin was sterilely prepped and draped. Ancef 2 g given intravenously. 1% lidocaine mixed 50-50 with 0.5% Marcaine was used as local anesthetic. Total 30 cc was used. The skin was anesthetized a transverse incision was made in the right groin sharp dissection carried down through the subtenons tissue the external oblique and external ring identified this was incised the ulnar nerve protected became apparent that the inguinal floor appeared to be lax but solid I then explored inferior to this and identified a fluid filled sac. Dissecting this free it became apparent that this was ascitic fluid within a sizable right femoral hernia. I opened the sac releasing ascitic fluid was able to palpate that there was no bowel within. I then dissected free at the femoral canal ligated it there with a 2-0 Vicryl suture ligature amputated the sac and submitted that its contents. I then approximated Asif's ligament to the shelving edge of Poupart's with interrupted 2-0 Ethibond sutures. Good closure and approximation was achieved. Then as there was some laxity in the inguinal floor I elected to simply imbricate the transversalis fascia from the pubic tubercle to the internal ring with a running 3-0 Ethibond. Great care was taken to preserve the ilioinguinal nerve. Having achieved that approximated external oblique with a running 3-0 Vicryl. Good repair was achieved. Grace's fascia was approximated with a simple suture of 4-0 Monocryl. The skin edges approximated running subicular 4- 0 Monocryl. Steri-Strips Telfa OpSite dressings applied. Sponge and instrument and needle counts were reported to the surgeon to be correct. Specimen hernia sac. Drains none. Blood loss minimal. The patient was taken to the recovery area in satisfactory condition without apparent complication Connor Hein M.D., F.A.C.S. Type of Anesthesia:: General Anesthesiologist: Sourav Farrar
== END 2020-08-18 17:32 | disposition home or self-care (01) ==
LOC: SDC 11:45 → AC 11:45
PROVIDERS: Anesthesiology; PCP Family Medicine; Referring Provider Surgery; Visit Provider Surgery
PROC: (CPT 49550; principal; 2020-08-18 14:05)
DX: K41.90 Unilateral femoral hernia, without obstruction or gangrene, not specified as recurrent (principal); R18.8 Other ascites; I10 Essential (primary) hypertension; I47.1 Supraventricular tachycardia; I27.20 Pulmonary hypertension, unspecified; E03.9 Hypothyroidism, unspecified; K21.9 Gastro-esophageal reflux disease without esophagitis; M81.0 Age-related osteoporosis without current pathological fracture; F32.9 Major depressive disorder, single episode, unspecified; Z20.822 Contact with and (suspected) exposure to COVID-19; Z79.899 Other long term (current) drug therapy; J45.909 Unspecified asthma, uncomplicated
CPT/HCPCS: 00830; 49550; 36415; 80048; 84443; 85027; 87426; 88302; 93005; 94640; C9803; J7120

== ENCOUNTER → 2020-12-26 13:30 | Outpatient (CLI) | payer MEDICARE, OTHER, SELFPAY ==
[2020-12-26 17:44] LABS: Probe Check PASS; Specimen Processing Control PASS
== END ==
PROVIDERS: PCP Family Medicine; Referring Provider Internal Medicine Pulmonary Disease; Visit Provider Internal Medicine Pulmonary Disease
DX: U07.1 COVID-19 (principal)
CPT/HCPCS: 87635; C9803; U0005; U0003

== ENCOUNTER 2020-12-27 18:37 | Emergency (ER) | payer MEDICARE, OTHER, SELFPAY ==
[2020-12-27] VITALS (7 sets, daily range): BP systolic 108–135; BP diastolic 67–88; PULSE 62–74; RESP 18–20; TEMP 37.1–37.2; O2SAT 91–95; BMI 28.1
--- NOTE | 2020-12-27 19:03 | EKG12_ITS ---
Test Reason : DYSRHYTHMIA Blood Pressure : / mmHG Vent. Rate : 076 BPM Atrial Rate : 076 BPM P-R Int : 152 ms QRS Dur : 084 ms QT Int : 384 ms P-R-T Axes : 052 001 -07 degrees QTc Int : 432 ms Normal sinus rhythm with sinus arrhythmia Normal ECG Confirmed by ALFREDA FREDERICK, LOIS ([id number]), online editor EBONI MIDDLETON ([id number]) on 12/29/2020 9:07:05 AM Referred By: ROSETTA Confirmed By:LOIS GANT MD
[2020-12-27 19:22] LABS: Absolute Lymphocyte Count 1.22 X10^3/uL (0.83-4.51); Absolute Neutrophil Count 1.5 X10^3/uL (2.0-7.7); Basophil# 0.02 X10^3/uL; Basophil% 0.6 % (0-1); Eosinophil# 0.03 X10^3/uL; Eosinophils% 0.9 % (0-5); Hematocrit 39.9 % (37-47); Hemoglobin 12.9 g/dL (12.0-15.0); Lymphocyte # 1.22 X10^3/ul (0.83-4.51); Mean Corp Hgb Conc 32.3 g/dL (32-36); Mean Corpuscular Hgb 28.5 pg (27.0-32.0); Mean Corpuscular Volume 88.3 fL (81-99); Mean Platelet Vol. 10.5 fl (6.2-12.0); Monocyte# 0.62 X10^3/uL; Monocyte% 18.3 % (0-10); NRBC Flagged by Analyzer 0 % (0-5); Neutrophil # 1.49 X10^3/uL (2.7-7.7); Neutrophil % 43.9 % (47-70); Platelet Count 154 K/mm3 (150-450); RBC Distribution Width CV 13.7 % (11.6-14.6); RBC Distribution Width SD 44.5 fl (35.1-43.9); Red Blood Count 4.52 M/mm3 (4.2-5.4); White Blood Count 3.4 K/mm3 (4.4-11.0)
[2020-12-27 19:37] LABS: AST(SGOT) 21 U/L (15-37); Alanine Aminotransfer ALT/SGPT 21 U/L (13-56); Albumin, Serum 3.4 g/dL (3.2-5.0); Alkaline Phosphatase 66 U/L (45-117); Anion Gap 5 (5-15); BUN 17 mg/dL (7-18); BUN/Creat Ratio 22.9 RATIO (10-20); Calcium,Total 8.5 mg/dL (8.5-10.1); Chloride 105 mmol/L (98-107); Creatinine, Serum 0.74 mg/dL (0.55-1.02); EST Glomerular Filtration Rate 81 mL/min (>60); Est Glom Filt Rate - Afr Amer 98 mL/min (>60); Globulin 3.5 g/dL (2.2-4.2); Glucose 90 mg/dL (74-106); Potassium 4.3 mmol/L (3.5-5.1); Protein, Total 6.9 g/dL (6.4-8.2); Sodium Level 135 mmol/L (136-145); Troponin-I HS 9 pg/mL (3.0-54.0)
--- NOTE | 2020-12-27 19:39 | EDS_ITS ---
HPI History of Present Illness Chief Complaint: Shortness of Breath Narrative Narrative: 75-year-old female presenting with cough, fatigue x5 days. She tested positive for Covid yesterday. He states he does not have body aches or chills. She has not had a fever. She is eating and drinking normally. She does not have feel lightheaded. She has no chest pain. She has a history of asthma but does not feel she is wheezing. Patient states she has history of atrial fibrillation as well and is not anticoagulated. She also relates a history of hypertension but has not on antihypertensives because her blood pressure drops too low. [facility] Medical History Asthma Depression Essential hypertension Exacerbation of asthma Femoral hernia History of colonic polyps Hypothyroidism Inguinal hernia of right side without obstruction or gangrene Osteoporosis PSVT (paroxysmal supraventricular tachycardia) Respiratory failure with hypoxia Suspected 2019 novel coronavirus infection Home Medications levocetirizine 5 mg PO DAILY 02/26/16 [History Last Taken Unknown] sertraline 50 mg PO DAILY 02/26/16 [History Last Taken Unknown] levothyroxine 25 mcg PO DAILY 08/20/19 [History Last Taken 08/18/20] montelukast 10 mg PO DAILY 08/20/19 [History Last Taken Unknown] multivitamin 1 tab PO DAILY 01/08/20 [History Last Taken Unknown] omeprazole 20 mg capsule,delayed release 20 mg PO BID cap 01/08/20 [History Last Taken 08/18/20] oxybutynin chloride 5 mg tablet,extended release 24 hr 5 mg PO BID tab 01/08/20 [History Last Taken Unknown] melatonin 3 mg capsule 3 mg PO HS PRN 01/13/20 [History Last Taken Unknown] calcium carbonate-vitamin D3 1 tablet PO DAILY@0800 08/11/20 [History Last Taken Unknown] metoprolol tartrate 12.5 mg PO BID 08/11/20 [History Last Taken Unknown] Allergy/AdvReac Type Severity Reaction Status Date / Time meperidine [From Demerol] AdvReac Mild syncope Verified 12/27/20 18:41 Family History Father CVA (cerebral vascular accident) Cancer prostate Brother Heart disease Mother CHF (congestive heart failure) Surgical History History of bunionectomy of both great toes History of femoral hernia repair History of left heart catheterization (01/18/20) History of open reduction and internal fixation (ORIF) procedure History of ovarian cystectomy Social History Smoking Status: Never smoker alcohol intake: never ROS ROS ED Constitutional Constitutional ED: Denies chills, fever(s) or weight loss Eyes Eyes: Denies blurry vision or diplopia ENT ENT ED: Denies rhinorrhea or sore throat Cardiovascular Cardiovascular: Denies chest pain or palpitations Respiratory/Chest Respiratory/Chest: Reports cough; Denies dyspnea or sputum Gastrointestinal Gastrointestinal: Denies abdominal pain, nausea or vomiting Genitourinary Genitourinary ED: Denies dysuria or hematuria Musculoskeletal Musculoskeletal: Denies arthralgias or myalgias Integumentary Denies Abrasions or rash Neurologic Neurologic: Reports headache(s); Denies paresthesias EXAM Physical Exam Const Vital Signs: 12/27/20 18:40 12/27/20 18:42 12/27/20 18:43 Temperature 98.9 F 98.9 F Temperature Source Temporal Temporal Pulse Rate 74 74 Respiratory Rate 20 H 20 H Respiratory Effort Short of Breath Blood Pressure 135/67 H 135/67 H Blood Pressure Mean 89 89 Pulse Ox 95 95 Oxygen Delivery Method Room Air Room Air Room Air 12/27/20 20:52 12/27/20 21:16 Temperature 98.7 F Temperature Source Oral Pulse Rate 62 68 Respiratory Rate 18 18 Respiratory Effort Blood Pressure 112/81 H 108/88 H Blood Pressure Mean 91 94 Pulse Ox 93 91 Oxygen Delivery Method Room Air Room Air Positive well nourished General Appearance ED: NAD; Negative for pallor HEENT Reports moist mucous membranes atraumatic Eyes PERRL and EOMs intact bilaterally Resp normal respiratory effort and clear to auscultation bilaterally Cardio regular rate and regular rhythm GI non-tender and non-distended Palpation: soft Neuro oriented x3 and CN's II-XII intact bilaterally Sensorium / Orientation: alert Psych mental status grossly normal Thought Process: normal thought process Skin General Skin Exam: Negative for jaundice or pallor Lesions: no lesions Rashes: no rashes MDM MDM MDM Narrative Medical decision making narrative: Patient presenting after being diagnosed with Covid. She is currently on day 5. Her CBC shows leukopenia and lymphopenia. D-dimer is 0.62 but age-adjusted is negative. Renal function electrolytes are normal. LFTs are also normal. Her chest x-ray shows no acute cardiopulmonary process on my interpretation and the radiologist does agree. Patient is ambulated on pulse ox and maintain sats of 92%. She does not appear to be unstable. Patient was referred for monoclonal antibodies. At this point since he is not hypoxic or requiring treatment I think she stable to be discharged home. She states she is already ordered a home pulse oximeter. She is couns eled if her pulse oximeter is dropping or if she has severe pain or worsening weakness she should return to the ED for repeat evaluation. She knowledge understanding. Impression: 1. COVID-19 pneumonitis 2. Dyspnea Lab Data Attestation: I reviewed the patient's lab results. Labs: Laboratory Results - last 24 hr 12/27/20 12/27/20 12/27/20 18:55 18:55 18:55 WBC 3.4 L RBC 4.52 Hgb 12.9 Hct 39.9 MCV 88.3 MCH 28.5 MCHC 32.3 RDW Std Deviation 44.5 H RDW Coeff of Nancy 13.7 Plt Count 154 MPV 10.5 Immature Gran % (Auto) 0.300 Neut % (Auto) 43.9 L Lymph % (Auto) 36.0 [place] % (Auto) 18.3 H Eos % (Auto) 0.9 Baso % (Auto) 0.6 Absolute Neuts (auto) 1.5 L Absolute Lymphs (auto) 1.22 Nucleated RBC % 0 D-Dimer Quant (PE/DVT) 0.62 H* Sodium 135 L Potassium 4.3 Chloride 105 Carbon Dioxide 25.0 Anion Gap 5 BUN 17 Creatinine 0.74 Estim Creat Clear Calc 48.00 Est GFR (MDRD) Af Amer 98 Est GFR (MDRD) Non-Af 81 BUN/Creatinine Ratio 22.9 H Glucose 90 Calcium 8.5 Total Bilirubin 0.40 AST 21 ALT 21 Alkaline Phosphatase 66 Troponin I High Sens 9 Total Protein 6.9 Albumin 3.4 Globulin 3.5 Albumin/Globulin Ratio 1.0 Radiography Diagnostic Testing: Radiology Impression Chest X-Ray 12/27/20 19:40 IMPRESSION: No acute cardiopulmonary process. Electronically Signed: Irene Lugo MD at 20:19 EDT Tel , Service support , Discharge Plan Triage Chief Complaint: Shortness of Breath ED Provider: Carmine Jasmine Dx/Rx/DC Orders Instructions: Coronavirus Disease 2019 (COVID-19): Caring for Yourself or Others Prescriptions: No Action melatonin 3 mg capsule 3 mg PO HS PRN (Reason: Sleep) RF: 0 oxybutynin chloride 5 mg tablet extended release 24hr 5 mg PO BID RF: 0 multivitamin Tablet 1 tab PO DAILY RF: 0 sertraline 50 MG tablet 50 mg PO DAILY RF: 0 levocetirizine 5 MG tablet 5 mg PO DAILY RF: 0 omeprazole 20 mg capsule,delayed release(DR/EC) 20 mg PO BID RF: 0 levothyroxine 25 MCG tablet 25 mcg PO DAILY RF: 0 montelukast 10 MG tablet 10 mg PO DAILY RF: 0 calcium carbonate-vitamin D3 1 TABLET tablet 1 tablet PO DAILY@0800 RF: 0 metoprolol tartrate 25 MG tablet 12.5 mg PO BID RF: 0 Primary Care Provider: Nj Meraz Referrals: Nj Meraz MD [Primary Care Provider] - Disposition Disposition: Home, Self Care Discharge Date/Time: 12/27/20 22:10
--- NOTE | 2020-12-27 19:40 | RAD_ITS ---
STUDY: X-RAY CHEST REASON FOR EXAM: Female, 75 years old. Cough TECHNIQUE: Single frontal view of the chest. COMPARISON: 01/27/2020 FINDINGS: There are stable left basilar streaky there are left basilar streaky opacities that are less pronounced than the prior examination. There is no new focal consolidation. Normal size heart. Normal mediastinum and sandra. Normal visualized pulmonary arteries. There is atherosclerotic calcification of the aortic arch with tortuosity. Normal visualized thoracic spine. Normal visualized ribs, clavicles, and shoulders. There is no demonstrated abnormality of the visualized soft tissue structures of the upper abdomen. RAD/Chest 1 View (Portable) IMPRESSION: No acute cardiopulmonary process. Electronically Signed: Irene Lugo MD at 20:19 EDT Tel , Service support ,
[2020-12-27 19:41] LABS: D-Dimer Quantitative (DVT/PE) 0.62 FEU/ug/m (0.27-0.49)
== END 2020-12-27 22:10 | disposition home or self-care (01) ==
PROVIDERS: Emergency Provider Student in an Organized Health Care Education/Training Program; PCP Family Medicine
DX: U07.1 COVID-19 (principal); J12.82 Pneumonia due to coronavirus disease 2019; R06.00 Dyspnea, unspecified; Z87.19 Personal history of other diseases of the digestive system
CPT/HCPCS: 71045; 80053; 84484; 85025; 85379; 93005; 99285; A4216

== ENCOUNTER 2020-12-30 17:16 | Outpatient (CLI) | payer MEDICARE, OTHER, SELFPAY ==
[2020-12-30 17:41] VITALS: BP 122/61; PULSE 75; RESP 24; TEMP 37.7; O2SAT 96; BMI 28.1
[2020-12-30] MEDS: 0.9% Saline Lock 10 ML Syringe IV (17:48)
[2020-12-30 18:19] VITALS: BP 113/58; PULSE 64; RESP 20; TEMP 37.9; O2SAT 92
[2020-12-30 19:09] VITALS: BP 106/57; PULSE 62; RESP 20; TEMP 36.9; O2SAT 93
== END 2020-12-30 19:28 | disposition home or self-care (01) ==
LOC: MS2OUT 17:16 → MS2 17:17
PROVIDERS: PCP Family Medicine; Referring Provider Nurse Practitioner Acute Care; Visit Provider Nurse Practitioner Acute Care
DX: Z23 Encounter for immunization (principal); U07.1 COVID-19
CPT/HCPCS: J7050; M0243; A4216; Q0244

== ENCOUNTER 2021-01-01 08:17 | Inpatient (IN) | payer MEDICARE, OTHER, SELFPAY ==
[2021-01-01] VITALS (12 sets, daily range): BP systolic 100–119; BP diastolic 42–78; PULSE 52–81; RESP 16–20; TEMP 36.5–37.2; O2SAT 90–98; BMI 28.1; BMI 27.6
--- NOTE | 2021-01-01 08:34 | RAD_ITS ---
STUDY: X-RAY CHEST REASON FOR EXAM: Female, 75 years old. covid 19 dyspnea TECHNIQUE: Single AP portable view of the chest. COMPARISON: 12/27/2020 FINDINGS: Poor inspiration with some bibasilar atelectasis. There is no demonstrated pleural abnormality. Normal size heart. Normal mediastinum and sandra. Normal visualized pulmonary arteries. Normal visualized aortic arch and descending thoracic aorta. Normal visualized thoracic spine. Normal visualized ribs, clavicles, and shoulders. There is no demonstrated abnormality of the visualized soft tissue structures of the upper abdomen. RAD/Chest 1 View (Portable) IMPRESSION: Poor inspiration with some bibasilar atelectasis. Electronically Signed: Noam Kaye MD at 9:14 EDT Tel , Service support ,
--- NOTE | 2021-01-01 08:35 | EDS_ITS ---
HPI History of Present Illness Chief Complaint: Shortness of Breath Informant: patient Narrative Narrative: 75-year-old female presented to the emergency department with a chief complaint of low pulse ox. Patient states that she was diagnosed recently with COVID-19. She states her pulse oximeter was 86% at rest at home this morning. Patient has been sick for approximately 10 days. She is not vaccinated against Covid. She does note diarrhea. She has been drinking fluids but not eating as much food. PFSH PFS Medical History Asthma Depression Essential hypertension Exacerbation of asthma Femoral hernia History of colonic polyps Hypothyroidism Inguinal hernia of right side without obstruction or gangrene Osteoporosis PSVT (paroxysmal supraventricular tachycardia) Respiratory failure with hypoxia Suspected 2019 novel coronavirus infection Home Medications levocetirizine 5 mg PO DAILY 02/26/16 [History Last Taken Unknown] sertraline 50 mg PO DAILY 02/26/16 [History Last Taken Unknown] levothyroxine 25 mcg PO DAILY 08/20/19 [History Last Taken 08/18/20] montelukast 10 mg PO DAILY 08/20/19 [History Last Taken Unknown] multivitamin 1 tab PO DAILY 01/08/20 [History Last Taken Unknown] omeprazole 20 mg capsule,delayed release 20 mg PO BID cap 01/08/20 [History Las t Taken 08/18/20] oxybutynin chloride 5 mg tablet,extended release 24 hr 5 mg PO BID tab 01/08/20 [History Last Taken Unknown] melatonin 3 mg capsule 3 mg PO HS PRN 01/13/20 [History Last Taken Unknown] calcium carbonate-vitamin D3 1 tablet PO DAILY@0800 08/11/20 [History Last Taken Unknown] metoprolol tartrate 12.5 mg PO BID 08/11/20 [History Last Taken Unknown] Allergy/AdvReac Type Severity Reaction Status Date / Time meperidine [From Demerol] AdvReac Mild syncope Verified 01/01/21 08:21 Family History Father CVA (cerebral vascular accident) Cancer prostate Brother Heart disease Mother CHF (congestive heart failure) Surgical History History of bunionectomy of both great toes History of femoral hernia repair History of left heart catheterization (01/18/20) History of open reduction and internal fixation (ORIF) procedure History of ovarian cystectomy Social History Smoking Status: Never smoker alcohol intake: never ROS ROS ED Constitutional Constitutional ED: Reports chills, fever(s) and sweats; Denies weight loss Eyes Eyes: Denies change in vision or diplopia ENT ENT ED: Reports rhinorrhea and sore throat; Denies ear pain Cardiovascular Cardiovascular: Denies chest pain, orthopnea, palpitations or racing heartbeat Respiratory/Chest Respiratory/Chest: Reports cough, dyspnea and dyspnea on exertion; Denies orthopnea Gastrointestinal Gastrointestinal: Reports diarrhea and nausea; Denies abdominal pain or vomiting Genitourinary Genitourinary ED: Denies dysuria, hematuria or urinary frequency Musculoskeletal Musculoskeletal: Reports myalgias; Denies arthralgias Integumentary Denies abscess or rash Neurologic Neurologic: Reports headache(s); Denies weakness Psychiatric Psychiatric: Denies anxiety, depression, suicidal ideation or suicidal thoughts Endocrine Endocrinology: Denies polydipsia, polyphagia or polyuria Allergic/Immunologic Allergic/Immunologic ED: Denies mouth swelling, tongue swelling or urticaria EXAM Physical Exam Narrative Exam Narrative: Patient appears tired Const Vital Signs: 01/01/21 08:18 01/01/21 08:59 01/01/21 10:18 Temperature 97.8 F Temperature Source Temporal Pulse Rate 80 74 59 L Respiratory Rate 18 18 16 Blood Pressure 105/74 110/64 100/57 L Blood Pressure Mean 84 79 71 Pulse Ox 93 91 93 Oxygen Delivery Method Room Air Room Air Nasal Cannula Oxygen Flow Rate (L/min) 2 Positive well nourished and well developed General Appearance ED: well developed HEENT Reports normocephalic, head/scalp atraumatic and moist mucous membranes Eyes PERRL and EOMs intact bilaterally Neck no lymphadenopathy, supple and no JVD Resp normal respiratory effort and clear to auscultation bilaterally Cardio regular rate, regular rhythm and no murmurs GI normal to inspection, nondistended, normoactive bowel sounds and non-tender Palpation: soft Back/Spine no CVA tenderness and normal ROM Extremity normal to inspection General Extremety ED: Negative for edema General Extremity: Negative for edema Neuro oriented x3 and CN's II-XII intact bilaterally Sensorium / Orientation: alert Motor Exam: strength 5/5 throughout Psych mental status grossly normal Mood & Affect: Negative for depressed or tearful Skin no rashes or lesions noted and no wounds MDM MDM MDM Narrative Medical decision making narrative: Basic blood work showed a white count of 3.3. Platelet count of 156. Lactic acid is normal. CTA of the chest was obtained does not demonstrate pulmonary embolism. My interpretation of the chest x-ray is small patchy areas of inflammation. I am unable to get the patient set up for supplemental oxygen at home. With movement of the bed on room air she is 88%. Therefore we did not ambulate her. She will receive a dose of Decadron and plan will be admission Lab Data Attestation: I reviewed the patient's lab results. Labs: Laboratory Results - last 24 hr 01/01/21 01/01/21 01/01/21 08:49 08:49 08:49 WBC 3.3 L RBC 4.56 Hgb 13.0 Hct 38.8 MCV 85.1 MCH 28.5 MCHC 33.5 RDW Std Deviation 41.6 RDW Coeff of Nancy 13.2 Plt Count 156 MPV 10.3 Immature Gran % (Auto) 0.300 Neut % (Auto) 59.4 Lymph % (Auto) 29.1 [place] % (Auto) 10.6 H Eos % (Auto) 0.3 Baso % (Auto) 0.3 Absolute Neuts (auto) 2.0 Absolute Lymphs (auto) 0.96 Nucleated RBC % 0 Sodium 135 L Potassium 4.1 Chloride 103 Carbon Dioxide 26.0 Anion Gap 6 BUN 11 Creatinine 0.75 Estim Creat Clear Calc 48.00 Est GFR (MDRD) Af Amer 97 Est GFR (MDRD) Non-Af 80 BUN/Creatinine Ratio 14.6 Glucose 94 Lactic Acid 1.0 Calcium 8.4 L Total Bilirubin 0.30 AST 26 ALT 22 Alkaline Phosphatase 57 Troponin I High Sens 13 Total Protein 6.6 Albumin 2.9 L Globulin 3.7 Albumin/Globulin Ratio 0.8 L Radiography Diagnostic Testing: Radiology Impression Chest X-Ray 01/01/21 08:34 IMPRESSION: Poor inspiration with some bibasilar atelectasis. Electronically Signed: Noam Kaye MD at 9:14 EDT Tel , Service support , Chest CTA 01/01/21 09:23 IMPRESSION: 1. No CT evidence of pulmonary embolism. 2. Bilateral subsegmental atelectasis or pneumonitis. Commonly reported imaging features of Covid 19 pneumonia are present. Other processes such as influenza pneumonia and organizing pneumonia from drug toxicity or connective tissue disease can cause a similar imaging pattern. Electronically Signed: Noam Kaye MD at 10:32 EDT Tel , Service support , Discharge Plan Triage Chief Complaint: Shortness of Breath ED Provider: Fabrizio Cardoso Dx/Rx/DC Orders Clinical Impression: COVID-19, Acute hypoxemic respiratory failure Prescriptions: No Action melatonin 3 mg capsule 3 mg PO HS PRN (Reason: Sleep) RF: 0 oxybutynin chloride 5 mg tablet extended release 24hr 5 mg PO BID RF: 0 multivitamin Tablet 1 tab PO DAILY RF: 0 sertraline 50 MG tablet 50 mg PO DAILY RF: 0 levocetirizine 5 MG tablet 5 mg PO DAILY RF: 0 omeprazole 20 mg capsule,delayed release(DR/EC) 20 mg PO BID RF: 0 levothyroxine 25 MCG tablet 25 mcg PO DAILY RF: 0 montelukast 10 MG tablet 10 mg PO DAILY RF: 0 calcium carbonate-vitamin D3 1 TABLET tablet 1 tablet PO DAILY@0800 RF: 0 metoprolol tartrate 25 MG tablet 12.5 mg PO BID RF: 0 Primary Care Provider: Nj Meraz Referrals: Nj Meraz MD [Primary Care Provider] - Disposition Disposition: Acute Care [facility]
[2021-01-01 08:58] LABS: Absolute Lymphocyte Count 0.96 X10^3/uL (0.83-4.51); Basophil# 0.01 X10^3/uL; Basophil% 0.3 % (0-1); Eosinophil# 0.01 X10^3/uL; Eosinophils% 0.3 % (0-5); Hematocrit 38.8 % (37-47); Lymphocyte # 0.96 X10^3/ul (0.83-4.51); Lymphocyte % 29.1 % (19-41); Mean Corp Hgb Conc 33.5 g/dL (32-36); Mean Corpuscular Hgb 28.5 pg (27.0-32.0); Mean Corpuscular Volume 85.1 fL (81-99); Mean Platelet Vol. 10.3 fl (6.2-12.0); Monocyte# 0.35 X10^3/uL; Monocyte% 10.6 % (0-10); NRBC Flagged by Analyzer 0 % (0-5); Neutrophil # 1.96 X10^3/uL (2.7-7.7); Neutrophil % 59.4 % (47-70); Platelet Count 156 K/mm3 (150-450); RBC Distribution Width CV 13.2 % (11.6-14.6); RBC Distribution Width SD 41.6 fl (35.1-43.9); Red Blood Count 4.56 M/mm3 (4.2-5.4); White Blood Count 3.3 K/mm3 (4.4-11.0)
[2021-01-01 09:15] LABS: ALB/GLOB Ratio 0.8 RATIO (0.9-2.4); AST(SGOT) 26 U/L (15-37); Alanine Aminotransfer ALT/SGPT 22 U/L (13-56); Albumin, Serum 2.9 g/dL (3.2-5.0); Alkaline Phosphatase 57 U/L (45-117); Anion Gap 6 (5-15); BUN 11 mg/dL (7-18); BUN/Creat Ratio 14.6 RATIO (10-20); Calcium,Total 8.4 mg/dL (8.5-10.1); Chloride 103 mmol/L (98-107); Creatinine, Serum 0.75 mg/dL (0.55-1.02); EST Glomerular Filtration Rate 80 mL/min (>60); Est Glom Filt Rate - Afr Amer 97 mL/min (>60); Globulin 3.7 g/dL (2.2-4.2); Glucose 94 mg/dL (74-106); Potassium 4.1 mmol/L (3.5-5.1); Protein, Total 6.6 g/dL (6.4-8.2); Sodium Level 135 mmol/L (136-145); Troponin-I HS 13 pg/mL (3.0-54.0)
--- NOTE | 2021-01-01 09:23 | CT_ITS ---
STUDY: CTA CHEST REASON FOR EXAM: Female, 75 years old. covid 19 pulmonary embolism hypoxia RADIATION DOSAGE (If Supplied By Facility): CTDIvol = ( 10.20 ) mGy, DLP = ( 370.54 ) mGycm TECHNIQUE: The examination was performed with the intravenous administration of IV 100mL Isovue-370. Post-processing of the angiographic images was performed, with multiplanar reformation and 3D reconstruction. Individualized dose optimization techniques were used for this CT. COMPARISON: None. FINDINGS: Normal enhancement of the main pulmonary artery and right and left pulmonary arteries. Normal enhancement of the bilateral peripheral pulmonary arteries. There is no demonstrated pulmonary embolism. Normal thoracic aorta and visualized great vessels. There is no demonstrated aortic dissection. Normal heart and pericardium. Normal mediastinum. Normal hilar regions. Normal visualized trachea and bronchi. The lungs are well expanded. Bilateral patchy groundglass opacities consistent with subsegmental atelectasis or pneumonitis. Normal pleura. Normal chest wall structures. Normal osseous structures. Normal visualized upper abdomen. CT/CTA Chest W/WO Contrast IMPRESSION: 1. No CT evidence of pulmonary embolism. 2. Bilateral subsegmental atelectasis or pneumonitis. Commonly reported imaging features of Covid 19 pneumonia are present. Other processes such as influenza pneumonia and organizing pneumonia from drug toxicity or connective tissue disease can cause a similar imaging pattern. Electronically Signed: Noam Kaye MD at 10:32 EDT Tel , Service support ,
[2021-01-01] MEDS: dexAMETHasone 4 MG Tablet 6 MG PO (10:49)
--- NOTE | 2021-01-01 11:09 | HP.PCM.HOS_ITS ---
HPI - General General Date of Admission: 01/01/21 Date of Service: 01/01/21 Chief Complaint: shortness of breath HPI Narrative ABIEL HILL, is a 75 F who presents w SOB. Pt first became ill on the 22 of December then started becoming SOB on the . patient had tested positive on December 26. She presented to the emergency room and was positive for COVID-19. Patient at [address] scan that showed few areas of scattered patchy infiltrates. P atient received dexamethasone. Patient checked her pulse ox at home and was 86% on room air. Patient had a virtual visit with pulmonology on the and the plan was to have monoclonal antibody infusion therapy. [facility] Medical History Asthma Depression Essential hypertension Exacerbation of asthma Femoral hernia History of colonic polyps Hypothyroidism Inguinal hernia of right side without obstruction or gangrene Osteoporosis PSVT (paroxysmal supraventricular tachycardia) Respiratory failure with hypoxia Suspected 2019 novel coronavirus infection Home Medications levocetirizine 5 mg PO DAILY 02/26/16 [History Last Taken Unknown] sertraline 50 mg PO DAILY 02/26/16 [History Last Taken Unknown] levothyroxine 25 mcg PO DAILY 08/20/19 [History Last Taken 08/18/20] montelukast 10 mg PO DAILY 08/20/19 [History Last Taken Unknown] multivitamin 1 tab PO DAILY 01/08/20 [History Last Taken Unknown] omeprazole 20 mg capsule,delayed release 20 mg PO BID cap 01/08/20 [History Last Taken 08/18/20] oxybutynin chloride 5 mg tablet,extended release 24 hr 5 mg PO BID tab 01/08/20 [History Last Taken Unknown] melatonin 3 mg capsule 3 mg PO HS PRN 01/13/20 [History Last Taken Unknown] calcium carbonate-vitamin D3 1 tablet PO DAILY@0800 08/11/20 [History Last Taken Unknown] metoprolol tartrate 12.5 mg PO BID 08/11/20 [History Last Taken Unknown] Allergy/AdvReac Type Severity Reaction Status Date / Time meperidine [From Demerol] AdvReac Mild syncope Verified 01/01/21 08:21 Family History Father CVA (cerebral vascular accident) Cancer prostate Brother Heart disease Mother CHF (congestive heart failure) Surgical History History of bunionectomy of both great toes History of femoral hernia repair History of left heart catheterization (01/18/20) History of open reduction and internal fixation (ORIF) procedure History of ovarian cystectomy Social History Smoking Status: Never smoker alcohol intake: never ROS ROS Narrative Cough. Chest pain with cough. Chills. All review of systems were negative except as mentioned above in the history of present illness and the other review of systems. Vital Signs Vital Signs Vital Signs: 01/01/21 08:18 01/01/21 08:59 01/01/21 10:18 Temperature 36.6 C Temperature Source Temporal Pulse Rate 80 74 59 L Respiratory Rate 18 18 16 Blood Pressure 105/74 110/64 100/57 L Blood Pressure Mean 84 79 71 Pulse Ox 93 91 93 Oxygen Delivery Method Room Air Room Air Nasal Cannula Oxygen Flow Rate (L/min) 2 Weight Weight: 81.6 kg Body Mass Index (BMI) 28.1 Physical Exam Const alert Resp normal respiratory effort and no retractions Resp Narrative: Few bibasilar crackles Cardio regular rate, regular rhythm, S1 normal heart sound and S2 normal heart sound GI normal to inspection, nondistended, normoactive bowel sounds, soft to palpation, non-tender and non-distended Extremity normal to inspection Results Lab / Micro Data Attestation: I reviewed the patient's lab results. Result Diagrams: 01/01/21 08:49 01/01/21 08:49 Labs: Laboratory Results - last 24 hr 01/01/21 08:49: WBC 3.3 L, RBC 4.56, Hgb 13.0, Hct 38.8, MCV 85.1, MCH 28.5, MCHC 33.5, RDW Std Deviation 41.6, RDW Coeff of Nancy 13.2, Plt Count 156, MPV 10.3, Immature Gran % (Auto) 0.300, Neut % (Auto) 59.4, Lymph % (Auto) 29.1, [place] % (Auto) 10.6 H, Eos % (Auto) 0.3, Baso % (Auto) 0.3, Absolute Neuts (auto) 2.0, Absolute Lymphs (auto) 0.96, Nucleated RBC % 0 01/01/21 08:49: Sodium 135 L, Potassium 4.1, Chloride 103, Carbon Dioxide 26.0, Anion Gap 6, BUN 11, Creatinine 0.75, Estim Creat Clear Calc 48.00, Est GFR (MDRD) Af Amer 97, Est GFR (MDRD) Non-Af 80, BUN/Creatinine Ratio 14.6, Glucose 94, Calcium 8.4 L, Total Bilirubin 0.30, AST 26, ALT 22, Alkaline Phosphatase 57, Troponin I High Sens 13, Total Protein 6.6, Albumin 2.9 L, Globulin 3.7, Albumin/Globulin Ratio 0.8 L 01/01/21 08:49: Lactic Acid 1.0 Radiology Impression Chest X-Ray 01/01/21 08:34 IMPRESSION: Poor inspiration with some bibasilar atelectasis. Electronically Signed: Noam Kaye MD at 9:14 EDT Tel , Service support , Chest CTA 01/01/21 09:23 IMPRESSION: 1. No CT evidence of pulmonary embolism. 2. Bilateral subsegmental atelectasis or pneumonitis. Commonly reported imaging features of Covid 19 pneumonia are present. Other processes such as influenza pneumonia and organizing pneumonia from drug toxicity or connective tissue disease can cause a similar imaging pattern. Electronically Signed: Noam Kaye MD at 10:32 EDT Tel , Service support , Assessment & Plan Assessment/Plan (1) COVID-19: PLAN: 1. Acute COVID-19 pneumonia Date of onset was 26. Patient now requiring oxygen. Patient out of the window for remdesivir Dexamethasone for a total of 10 days Patient was unvaccinated Patient informed that the degree of her illness would be likely less severe as she been vaccinated 2. Acute respiratory insufficiency Patient reported that she was 86% on room air at home. Currently stable on 2 L Patient will need an amatory pulse ox to try to get oxygen which cannot been performed in the emergency room as there is no social work available. May not be available on the 6 given hol. 3. VTE prophylaxis with enoxaparin 4. CODE STATUS: Addressed with the patient. Patient wishes to be DNR Comfort Care arrest no intubation. Patient informed that she can change her mind at any point. Charges/Coding Visit Charges Inpatient E&M: 33277 Init Hosp L2
--- NOTE | 2021-01-01 14:53 | NURSING ---
This nurse gave pt Incentive Spirometer and explained importance and how to use it. Pt using correctly at this time.
[2021-01-01] MEDS: Metoprolol Tartrate 25 MG Tablet 12.5 MG PO (21:40)
[2021-01-01] MEDS: Pantoprazole Sodium 20 MG Tablet PO (21:40)
[2021-01-02] VITALS (7 sets, daily range): BP systolic 124–132; BP diastolic 63–80; PULSE 56–64; RESP 18; TEMP 35.7–36.8; O2SAT 87–100
[2021-01-02 07:23] LABS: Absolute Lymphocyte Count 0.83 X10^3/uL (0.83-4.51); Absolute Neutrophil Count 2.1 X10^3/uL (2.0-7.7); Eosinophil# 0.01 X10^3/uL; Eosinophils% 0.3 % (0-5); Hematocrit 39.3 % (37-47); Lymphocyte # 0.83 X10^3/ul (0.83-4.51); Lymphocyte % 25.1 % (19-41); Mean Corp Hgb Conc 33.1 g/dL (32-36); Mean Corpuscular Hgb 28.5 pg (27.0-32.0); Mean Corpuscular Volume 86.2 fL (81-99); Mean Platelet Vol. 10.8 fl (6.2-12.0); Monocyte# 0.37 X10^3/uL; Monocyte% 11.2 % (0-10); NRBC Flagged by Analyzer 0 % (0-5); Neutrophil # 2.09 X10^3/uL (2.7-7.7); Neutrophil % 63.1 % (47-70); POSITIVE MORPHOLOGY YES; Platelet Count 176 K/mm3 (150-450); RBC Distribution Width CV 13.1 % (11.6-14.6); RBC Distribution Width SD 41.1 fl (35.1-43.9); Red Blood Count 4.56 M/mm3 (4.2-5.4); White Blood Count 3.3 K/mm3 (4.4-11.0)
[2021-01-02 07:33] LABS: ALB/GLOB Ratio 0.7 RATIO (0.9-2.4); AST(SGOT) 24 U/L (15-37); Alanine Aminotransfer ALT/SGPT 22 U/L (13-56); Albumin, Serum 2.7 g/dL (3.2-5.0); Alkaline Phosphatase 55 U/L (45-117); Anion Gap 5 (5-15); BUN 12 mg/dL (7-18); Calcium,Total 8.6 mg/dL (8.5-10.1); Chloride 107 mmol/L (98-107); EST Glomerular Filtration Rate 103 mL/min (>60); Est Glom Filt Rate - Afr Amer 125 mL/min (>60); Globulin 3.7 g/dL (2.2-4.2); Glucose 106 mg/dL (74-106); Potassium 4.2 mmol/L (3.5-5.1); Protein, Total 6.4 g/dL (6.4-8.2); Sodium Level 139 mmol/L (136-145)
[2021-01-02 07:58] LABS: Differential Indicated SCAN CRITERIA MET
[2021-01-02] MEDS: Loratadine 10 MG Tablet 5 MG PO (08:56)
[2021-01-02] MEDS: Pantoprazole Sodium 20 MG Tablet PO (08:56)
[2021-01-02] MEDS: Calcium Carb/Vitamin D 1 TABLET Tablet PO (08:57)
[2021-01-02] MEDS: Multivitamins,Therapeutic Tablet 1 TABLET PO (08:57)
[2021-01-02] MEDS: Sertraline 50 MG Tablet PO (08:57)
[2021-01-02] MEDS: Tolterodine Tartrate 2 MG CAP.SA PO (08:57)
[2021-01-02] MEDS: Montelukast 10 MG Tablet PO (08:57)
[2021-01-02] MEDS: Levothyroxine 25 MCG TABLET PO (08:57)
[2021-01-02] MEDS: dexAMETHasone 4 MG Tablet 6 MG PO (08:58)
[2021-01-02] MEDS: Enoxaparin 40 MG/0.4 ML Syringe SC (09:00)
[2021-01-02 09:07] LABS: Differential Comment SCANNED; Reactive Lymphocyte 1+
--- NOTE | 2021-01-02 13:21 | PCM.PN.HOSP ---
Subjective Subjective Patient was admitted yesterday for shortness of breath. Patient felt mild illness on December 22, short of breath third December. Tested positive on December 26. Hypoxic 86% on room air at home. Objective Data Objective Data Vital Signs: Vital Signs Temp Pulse Resp BP Pulse Ox 98.3 F 56 L 18 127/68 H 94 01/02/21 08:48 01/02/21 09:00 01/02/21 08:48 01/02/21 08:48 01/02/21 08:48 Oxygen Flow Rate (L/min) 1 Oxygen Delivery Method Nasal Cannula Weight: 176 lb 9.444 oz Body Mass Index (BMI) 27.6 Intake & Output: Intake and Output for Last 24 Hours 12/31/20 01/01/21 01/02/21 23:59 23:59 23:59 Intake Total 240 / 240 Output Total 300 / 300 Balance -60 / -60 Lab / Micro Data Result Diagrams: 01/02/21 06:41 01/02/21 06:41 Labs: Laboratory Results - last 24 hr 01/02/21 06:41: WBC 3.3 L, RBC 4.56, Hgb 13.0, Hct 39.3, MCV 86.2, MCH 28.5, MCHC 33.1, RDW Std Deviation 41.1, RDW Coeff of Nancy 13.1, Plt Count 176, MPV 10.8, Immature Gran % (Auto) 0.300, Neut % (Auto) 63.1, Lymph % (Auto) 25.1, [place] % (Auto) 11.2 H, Eos % (Auto) 0.3, Baso % (Auto) 0.0, Absolute Neuts (auto) 2.1, Absolute Lymphs (auto) 0.83, Nucleated RBC % 0, Differential Comment SCANNED, Reactive Lymphocytes 1+ 01/02/21 06:41: Sodium 139, Potassium 4.2, Chloride 107, Carbon Dioxide 27.0, Anion Gap 5, BUN 12, Creatinine 0.60, Estim Creat Clear Calc 48.00, Est GFR (MDRD) Af Amer 125, Est GFR (MDRD) Non-Af 103, BUN/Creatinine Ratio 20.0, Glucose 106, Calcium 8.6, Total Bilirubin 0.40, AST 24, ALT 22, Alkaline Phosphatase 55, Total Protein 6.4, Albumin 2.7 L, Globulin 3.7, Albumin/Globulin Ratio 0.7 L Physical Exam Narrative General: Alert, Oriented x3, Cooperative HEENT: Atraumatic, PERRLA, EOMI, Normocephalic. Bilateral hard of hearing Oral: No Gingival or Mucosal Lesions/ Ulcerations Neck: Supple, No JVD, Negative Carotid Bruits Lungs: Air entry diminished in bilateral lung bases. Bilateral coarse crepitations present on lung bases. Cardiovascular: Regular rate, Regular Rhythm, Normal S1, Normal S2, No murmurs Abdomen: Bowel Sounds Present, Soft, Non Tender, Non-Distended : No renal angle tenderness. No suprapubic tenderness. Extremities: No edema, Capillary Refill Less than 3 Seconds Skin: No rashes, No breakdown Musculoskeletal: No Tenderness to Palpation of Joints or Extremities Neurological: Cranial nerves II-XII grossly intact, DTR 2+/4 and Symmetrical, Neuro grossly intact Psych/Mental Status: Normal Affect, Appropriate. Assessment & Plan Assessment/Plan (1) COVID-19: PLAN: 1. Acute hypoxic respiratory insufficiency secondary to bilateral COVID-19 pneumonia: Patient on 2 L of oxygen. Patient was hypoxic 86% on ambient air at home. T-max 100.3 Fahrenheit on 12/30. Patient treated with monoclonal antibody infusion on 12/30 in pulmonary clinic. Continue Decadron. Out of window for remdesivir. Discussed with the nursing staff if oxygen can be arranged for home then will discharge her. 2. VTE prophylaxis on enoxaparin. Charges/Coding Visit Charges Inpatient E&M: 81321 Subs Hosp L2
--- NOTE | 2021-01-02 15:09 | PCM.DC ---
Discharge Instructions Diet Discharge Diet: Low fat / Low cholesterol Activity Discharge Activity: May Not Drive Weight Bearing Status: Weight bearing as tolerated Dressing / Incision Call your doctor if you observe: Fever of 101 or Higher, Coldness, Increased Pain, Numbness or Tingling, Change in Color, Inability to urinate, Inability to have a bowel movement, Shortness of breath, Dizziness, Fainting spells, Swelling in the ankles, Chest pain, Prolonged hiccupping, Increased palpitations (irregular heartbeat), Calf discomfort and Uncontrolled pain Follow Up Care Test Results: Test results from this visit will be discussed in further detail at your follow-up appointment, if applicable. Discharge Plan Admission Admit Date/Time: 01/01/21 11:07 Primary Reason for Your Visit: Bilateral COVID-19 pneumonia Attending Provider: Maninder Valente Primary Care Provider: Nj Meraz Instructions Additional Instructions / Restrictions: Self quarantine for 21 days from the start of the symptoms, December 22 until January 13, 2021 Discharge Orders/Prescriptions Prescriptions: New Eliquis 2.5 mg tablet 2.5 mg PO BID Qty: 30 RF: 0 dexamethasone 6 mg tablet 6 mg PO DAILY Qty: 8 RF: 0 pseudoephedrine-guaifenesin [Mucinex D] 60-600 mg tablet extended release 12 hr 1 tab PO BID Qty: 14 RF: 0 Continued melatonin 3 mg capsule 3 mg PO HS PRN (Reason: Sleep) RF: 0 oxybutynin chloride 5 mg tablet extended release 24hr 5 mg PO BID RF: 0 multivitamin Tablet 1 tab PO DAILY RF: 0 sertraline 50 MG tablet 50 mg PO DAILY RF: 0 levocetirizine 5 MG tablet 5 mg PO DAILY RF: 0 omeprazole 20 mg capsule,delayed release(DR/EC) 20 mg PO BID RF: 0 levothyroxine 25 MCG tablet 25 mcg PO DAILY RF: 0 montelukast 10 MG tablet 10 mg PO DAILY RF: 0 calcium carbonate-vitamin D3 1 TABLET tablet 1 tablet PO DAILY@0800 RF: 0 metoprolol tartrate 25 MG tablet 12.5 mg PO BID Qty: 0 RF: 0 Referrals / Follow Up: Nj Meraz MD [Primary Care Provider] - In 1 Week Disposition Disposition (needs filled in before D/C Order can be placed): Home, Self Care
--- NOTE | 2021-01-02 15:20 | DS.PCM_ITS ---
Providers Date of Admission: 01/01/21 Date of Discharge: 01/02/21 Primary Care Physician: Dr. Nj Meraz MD Reason For Visit: COVID 19 Diagnosis Discharge Diagnosis (1) COVID-19: Status: Acute Code(s): U07.1 - COVID-19 Medications at Discharge Home Medications levocetirizine 5 mg PO DAILY 02/26/16 sertraline 50 mg PO DAILY 02/26/16 levothyroxine 25 mcg PO DAILY 08/20/19 montelukast 10 mg PO DAILY 08/20/19 multivitamin 1 tab PO DAILY 01/08/20 omeprazole 20 mg capsule,delayed release 20 mg PO BID cap 01/08/20 oxybutynin chloride 5 mg tablet,extended release 24 hr 5 mg PO BID tab 01/08/20 melatonin 3 mg capsule 3 mg PO HS PRN 01/13/20 calcium carbonate-vitamin D3 1 tablet PO DAILY@0800 08/11/20 apixaban [Eliquis] 2.5 mg PO BID #30 tab 01/02/21 dexamethasone 6 mg PO DAILY #8 tab 01/02/21 metoprolol tartrate 12.5 mg PO BID #0 tab 01/02/21 pseudoephedrine-guaifenesin [Mucinex D] 1 tab PO BID #14 tab 01/02/21 Hospital Course Summary of Care Provided Hospital Course: This 75-year-old female was admitted for Covid symptoms including shortness of breath. Patient had mild illness -26, developed shortness of breath on December 30. She tested positive COVID-19 on December 26. Patient was found hypoxic 86% on room air at home. Patient was further admitted on [facility]. 1. Acute hypoxic respiratory insufficiency secondary to bilateral COVID-19 pneumonia: Patient on 2 L of oxygen. Patient was hypoxic 86% on ambient air at home. T-max 100.3 Fahrenheit on 12/30. Patient treated with monoclonal antibody infusion on 12/30 in pulmonary clinic. Continue Decadron. Out of window for remdesivir. Discussed with the nursing staff if oxygen can be arranged for home then will discharge her. 2. VTE prophylaxis on enoxaparin. Home oxygen qualification was done. Patient is ambulatory in home and in the community and requires home oxygen with portability. Discharged on Decadron 6 mg daily to complete total of 10 days, Eliquis 2.5 twice daily and Mucinex DM. Follow with PCP in 1 week virtually Discharge medication reconciliation done. Discharge follow-up instructions completed. Discharge process discussed with the patient and all questions were answered to patient's satisfaction. Total time spent, exact 35 minutes on discharge meds reconciliation, examination , coordination of care with nurses and ancillary staff, review of imaging and blood test and discussion with the patient on follow-up instructions Physical Exam Narrative Please see progress note of the same date. Weight / BMI Weight Weight: 176 lb 9.444 oz Body Mass Index (BMI) 27.6 ABG / Lab / Microbiology Data Result Diagrams: 01/02/21 06:41 01/02/21 06:41 Laboratory: Laboratory Results - last 24 hr 01/02/21 06:41: WBC 3.3 L, RBC 4.56, Hgb 13.0, Hct 39.3, MCV 86.2, MCH 28.5, MCHC 33.1, RDW Std Deviation 41.1, RDW Coeff of Nancy 13.1, Plt Count 176, MPV 10.8, Immature Gran % (Auto) 0.300, Neut % (Auto) 63.1, Lymph % (Auto) 25.1, [place] % (Auto) 11.2 H, Eos % (Auto) 0.3, Baso % (Auto) 0.0, Absolute Neuts (auto) 2.1, Absolute Lymphs (auto) 0.83, Nucleated RBC % 0, Differential Comment SCANNED, Reactive Lymphocytes 1+ 01/02/21 06:41: Sodium 139, Potassium 4.2, Chloride 107, Carbon Dioxide 27.0, Anion Gap 5, BUN 12, Creatinine 0.60, Estim Creat Clear Calc 48.00, Est GFR (MDRD) Af Amer 125, Est GFR (MDRD) Non-Af 103, BUN/Creatinine Ratio 20.0, Glucose 106, Calcium 8.6, Total Bilirubin 0.40, AST 24, ALT 22, Alkaline Phosphatase 55, Total Protein 6.4, Albumin 2.7 L, Globulin 3.7, Albumin/Globulin Ratio 0.7 L D/C Instructions Discharge Diet: Low fat / Low cholesterol Weight Bearing Status: Weight bearing as tolerated Call your doctor if you observe: Fever of 101 or Higher, Coldness, Increased Pain, Numbness or Tingling, Change in Color, Inability to urinate, Inability to have a bowel movement, Shortness of breath, Dizziness, Fainting spells, Swelling in the ankles, Chest pain, Prolonged hiccupping, Increased palpitations (irregular heartbeat), Calf discomfort and Uncontrolled pain Meaningful Use Info Meaningful Use Diagnoses (Choose all that apply): None applicable Discharge Plan Admission Admit Date/Time: 01/01/21 11:07 Primary Reason for Your Visit: Bilateral COVID-19 pneumonia Attending Provider: Maninder Valente Primary Care Provider: Nj Meraz Instructions Additional Instructions / Restrictions: Self quarantine for 21 days from the start of the symptoms, December 22 until January 13, 2021 Discharge Orders/Prescriptions Prescriptions: New Eliquis 2.5 mg tablet 2.5 mg PO BID Qty: 30 RF: 0 dexamethasone 6 mg tablet 6 mg PO DAILY Qty: 8 RF: 0 pseudoephedrine-guaifenesin [Mucinex D] 60-600 mg tablet extended release 12 hr 1 tab PO BID Qty: 14 RF: 0 Continued melatonin 3 mg capsule 3 mg PO HS PRN (Reason: Sleep) RF: 0 oxybutynin chloride 5 mg tablet extended release 24hr 5 mg PO BID RF: 0 multivitamin Tablet 1 tab PO DAILY RF: 0 sertraline 50 MG tablet 50 mg PO DAILY RF: 0 levocetirizine 5 MG tablet 5 mg PO DAILY RF: 0 omeprazole 20 mg capsule,delayed release(DR/EC) 20 mg PO BID RF: 0 levothyroxine 25 MCG tablet 25 mcg PO DAILY RF: 0 montelukast 10 MG tablet 10 mg PO DAILY RF: 0 calcium carbonate-vitamin D3 1 TABLET tablet 1 tablet PO DAILY@0800 RF: 0 metoprolol tartrate 25 MG tablet 12.5 mg PO BID Qty: 0 RF: 0 Referrals / Follow Up: Nj Meraz MD [Primary Care Provider] - In 1 Week Disposition Disposition (needs filled in before D/C Order can be placed): Home, Self Care Charges/Coding Visit Charges Inpatient E&M: 67427 Disch Hosp
[2021-01-03 02:44] LABS: Pathologist Review May foll
--- NOTE | 2021-01-03 15:00 | CASEMGMT ---
DEEPA SOLOMON Discharge Follow-up Phone Call: HARMEET: Cassie Strata:3 Call Date:01/03/21 Discharge Date: 01/02/21 Time of Call: [id number] Admitting Diagnosis: COVID-19 This RN CM phoned pt for discharge follow-up. Pt states she has been doing ok since discharge. States she received her oxygen concentrator from [employer] and is wearing it at 2l/min. Pt states she has a pulse oximeter but had not used it. While speaking to this keno writer on the phone, pt checked her PO and reports it be 98%. Pt denies any SOB except for when she has a coughing spell. Pt states she lives with her and denies any difficulty with ambulating around her home although states she continues to not have much energy. Pt states her has not been tested for COVID but reports that he has a cough and also does not have much energy. States their kids are helping them with obtaining groceries but pt's went to [employer] this morning to excelsior picker pt's prescriptions. Discussed need to quarantine and pt aware she should until 01/16. Pt denied any questions regarding the prescriptions but did express concern regarding the cost of the Eliquis at $260. This RN CM obtained an Eliquis discount card and spoke with Cora at [facility] regarding application on the prescription picked up today. She checked with pharmacist Ashish who stated it was too late since the medication had left the building but that he would apply the discount when they come for a refill. This keno writer will mail the card to the patient. The keno writer contacted pt via phone and explained the same and confirmed address. Pt states she has made a follow-up appoint with Dr. Arroyo for 01/19. Pt denied any further questions or concerns at this time. Lionel Martell RN CM
== END 2021-01-02 17:55 | disposition home or self-care (01) | DRG 177 ==
LOC: ED 10:45 → MS3 11:16
PROVIDERS: Emergency Provider Emergency Medicine; PCP Family Medicine; Visit Provider Internal Medicine
DX: U07.1 COVID-19 (principal); J12.82 Pneumonia due to coronavirus disease 2019; R06.89 Other abnormalities of breathing; R09.02 Hypoxemia; I10 Essential (primary) hypertension; E03.9 Hypothyroidism, unspecified; M81.0 Age-related osteoporosis without current pathological fracture; F32.9 Major depressive disorder, single episode, unspecified; Z66 Do not resuscitate; Z79.01 Long term (current) use of anticoagulants; Z99.81 Dependence on supplemental oxygen; Z79.890 Hormone replacement therapy; Z79.899 Other long term (current) drug therapy
CPT/HCPCS: 36415; 71045; 71275; 80053; 83605; 84484; 85025; 97802; 99282; J7050; M0243; Q9967; A4216; Q0244

== ENCOUNTER → 2021-01-25 15:09 | Outpatient (CLI) | payer MEDICARE, OTHER, SELFPAY | PROVIDERS: PCP Family Medicine; Referring Provider Family Medicine; Visit Provider Family Medicine | DX: U07.1 COVID-19 (principal) | CPT/HCPCS: 36415; 86769 ==

== ENCOUNTER → 2021-02-24 09:49 | Outpatient (CLI) | payer MEDICARE, OTHER, SELFPAY ==
[2021-02-24 12:47] LABS: Anion Gap 6 (5-15); BUN 19 mg/dL (7-18); BUN/Creat Ratio 23.7 RATIO (10-20); Calcium,Total 9.3 mg/dL (8.5-10.1); Chloride 109 mmol/L (98-107); Cholesterol 209 mg/dL (200); EST Glomerular Filtration Rate 74 mL/min (>60); Est Glom Filt Rate - Afr Amer 90 mL/min (>60); Free T3 2.3 pg/mL (2.18-3.98); Glucose 95 mg/dL (74-106); High Density Lipoprotein 84 mg/dL; Sodium Level 141 mmol/L (136-145); T4 Free Direct 0.92 ng/dL (0.76-1.46); Thyroid Stim Hormone (TSH) 4.13 uIU/mL (0.358-3.74); Triglycerides 44 mg/dL; Very Low Density Lipoprotein 9 mg/dL (5-40)
== END ==
PROVIDERS: PCP Family Medicine; Referring Provider Family Medicine; Visit Provider Family Medicine
DX: Z00.00 Encounter for general adult medical examination without abnormal findings (principal); E03.9 Hypothyroidism, unspecified
CPT/HCPCS: 36415; 80048; 80061; 84439; 84443; 84481

== ENCOUNTER → 2021-04-03 13:52 | Outpatient (CLI) | payer MEDICARE, OTHER, SELFPAY | PROVIDERS: PCP Family Medicine; Referring Provider Internal Medicine Pulmonary Disease; Visit Provider Internal Medicine Pulmonary Disease | DX: R05.9 Cough, unspecified (principal) | CPT/HCPCS: 87635; C9803; U0005; U0003 ==

== ENCOUNTER → 2021-04-06 09:52 | Outpatient (CLI) | payer MEDICARE, OTHER, SELFPAY | PROVIDERS: PCP Family Medicine; Referring Provider Internal Medicine Pulmonary Disease; Visit Provider Internal Medicine Pulmonary Disease | DX: R05.9 Cough, unspecified (principal) | CPT/HCPCS: 87070; 87205 ==

== ENCOUNTER 2021-05-31 10:27 | Outpatient (CLI) | payer MEDICARE, OTHER, SELFPAY ==
[2021-05-31 11:17] LABS: CRP 3.11 mg/L (0.0-3.0)
[2021-05-31 11:21] LABS: Erythrocyte Sedimentation Rate 6 mm/hr (0-30)
== END 2021-05-31 23:59 | disposition short-term general hospital (02) ==
LOC: LAB 10:32
PROVIDERS: PCP Family Medicine; Referring Provider Internal Medicine Pulmonary Disease; Visit Provider Internal Medicine Pulmonary Disease
DX: J45.991 Cough variant asthma (principal)
CPT/HCPCS: 36415; 85652; 86140

== ENCOUNTER 2021-06-06 07:22 | Outpatient (CLI) | payer MEDICARE, OTHER, SELFPAY ==
--- NOTE | 2021-06-06 07:24 | CT_ITS ---
STUDY: CT CHEST WITHOUT CONTRAST REASON FOR EXAM: Female, 76 years old. COUGH RADIATION DOSAGE (If Supplied By Facility): CTDIvol = ( 16.99 ) mGy, DLP = ( 591.38 ) mGycm TECHNIQUE: Transaxial imaging was performed without the administration of intravenous contrast material. Individualized dose optimization techniques were used for this CT. COMPARISON: None. FINDINGS: Mild bilateral apical scarring. 6 cm noncalcified nodule in the subpleural posterior medial superior segment of the right lower lobe lungs on image 49. Another 4 mm noncalcified nodule in the subpleural posterior medial superior segment right lower lobe lung zone image 55. There is no demonstrated pleural abnormality. Normal heart and pericardium. Normal mediastinum. Normal hilar regions. Normal unenhanced pulmonary arteries. Normal aorta arch and descending thoracic aorta. Normal osseous structures. There is no demonstrated abnormality of the visualized upper abdomen. CT/Chest without Contrast IMPRESSION: 2 noncalcified right lower lobe nodules and follow-up CT is recommended in 6 months document stability. Electronically Signed: Noam Kaye MD at 8:06 EST ,
== END 2021-06-06 23:59 | disposition home or self-care (01) ==
LOC: CT 07:23
PROVIDERS: PCP Family Medicine; Referring Provider Internal Medicine Pulmonary Disease; Visit Provider Internal Medicine Pulmonary Disease
DX: J45.991 Cough variant asthma (principal); R91.8 Other nonspecific abnormal finding of lung field
CPT/HCPCS: 71250

== ENCOUNTER 2021-08-14 14:24 | Outpatient (CLI) | payer MEDICARE, OTHER, SELFPAY ==
--- NOTE | 2021-08-14 14:30 | RAD_ITS ---
INDICATION: LOW BACK PAIN EXAMINATION/TECHNIQUE: X-RAY - XR Spine Lumbar Min 4 Views COMPARISON: CT scan of the pelvis obtained on 06/13/2020. FINDINGS: Mild levoscoliosis of the thoracolumbar spine is seen. Degenerative endplate changes visualized, no evidence of compression deformity of the lumbar vertebral bodies is seen. Grade 2 anterolisthesis of L5 over S1 is seen. Decreased intervertebral disc height visualized most prominent at L5-S1 and to a lesser extent at L1-L2 and L2-L3. Hypertrophic changes visualized in the facet joints, L5 pars interarticularis fracture is visualized most likely the cause of the spondylolisthesis, these were visualized on the prior study on 06/13/[address] series 2 image 83/131, if clinically indicated would recommend percutaneous CT-guided steroid injection for pain management.. Abundance of stool in the large bowel. RAD/L/S Spine Min 4 Views IMPRESSION: Bilateral L5 pars fractures causing grade 2 anterolisthesis of L5 over S1. Electronically Signed: Carlos Garvey MD at 15:18 EDT ,
== END 2021-08-14 23:59 | disposition home or self-care (01) ==
LOC: MTRAD 14:26
PROVIDERS: PCP Family Medicine; Referring Provider Family Medicine; Visit Provider Family Medicine
DX: M54.50 Low back pain, unspecified (principal)
CPT/HCPCS: 72110

== ENCOUNTER → 2021-08-19 | Outpatient (CLI) | payer MEDICARE, OTHER, SELFPAY ==
--- NOTE | 2021-08-19 09:02 | MRI_ITS ---
STUDY: MRI LUMBAR SPINE WITHOUT CONTRAST REASON FOR EXAM: Female, 76 years old. pain, ABNORMAL XRAY F/U TECHNIQUE: Standardized fat and water weighted pulse sequences were obtained in the sagittal and axial planes. COMPARISON: X-ray 08/14/2021 FINDINGS: T12-L1: Normal endplates. Normal disc height, hydration and morphology. Normal bilateral facet joints. Normal central canal and bilateral lateral recesses. Normal bilateral intervertebral neural foramina. Normal lumbar lordosis. There is no substantial scoliosis. Normal conus medullaris that terminates at the L1. L1-2: Normal endplates. Normal disc height, hydration and morphology. Normal bilateral facet joints. Normal central canal and bilateral lateral recesses. Normal bilateral intervertebral neural foramina. L2-3: Mild bilateral facet hypertrophy and ligament flavum hypertrophy. No disc protrusion, spinal stenosis, or neural foraminal stenosis. L3-4: Normal endplates. Normal disc height, hydration and morphology. Normal bilateral facet joints. Normal central canal and bilateral lateral recesses. Normal bilateral intervertebral neural foramina. L4-5: Mild bilateral facet hypertrophy and ligament flavum hypertrophy. Mild broad disc protrusion produces mild spinal stenosis and mild bilateral neural foraminal stenosis. L5-S1: Bilateral pars defects of the L5 vertebra consistent with L5 spondylolysis. 5 mm of anterolisthesis of L5 on S1 consistent with grade 1 spondylolisthesis. Mild broad disc protrusion produces mild spinal stenosis and moderate bilateral neural foraminal stenosis with abutment of the L5 nerve roots bilaterally. Normal visualized sacral ala. Severe friction related edema of the posterior subcutaneous fat. 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 Electronically Signed: Noam Kaye MD at 8:38 EDT ,
== END | disposition home or self-care (01) ==
LOC: MRI 09:01
PROVIDERS: PCP Family Medicine; Visit Provider Orthopaedic Surgery
DX: M43.10 Spondylolisthesis, site unspecified (principal)
CPT/HCPCS: 72148

== ENCOUNTER → 2021-08-24 | Outpatient (CLI) | payer MEDICARE, OTHER, SELFPAY ==
[2021-08-24 13:07] LABS: Free T3 2.1 pg/mL (2.18-3.98); T4 Total, Thyroxin 8.8 ug/dL (4.8-13.9)
== END | disposition home or self-care (01) ==
LOC: MFPLAB 11:07
PROVIDERS: PCP Family Medicine; Referring Provider Family Medicine; Visit Provider Family Medicine
DX: E03.9 Hypothyroidism, unspecified (principal)
CPT/HCPCS: 36415; 84436; 84443; 84481

== ENCOUNTER → 2022-03-12 | Outpatient (CLI) | payer MEDICARE, OTHER, SELFPAY ==
[2022-03-12 12:39] LABS: Anion Gap 6 (5-15); BUN 16 mg/dL (7-18); BUN/Creat Ratio 21.1 RATIO (10-20); Calcium,Total 9.1 mg/dL (8.5-10.1); Chloride 107 mmol/L (98-107); Cholesterol 213 mg/dL (200); Creatinine, Serum 0.76 mg/dL (0.55-1.02); EST Glomerular Filtration Rate 79 mL/min (>60); Est Glom Filt Rate - Afr Amer 95 mL/min (>60); Glucose 75 mg/dL (74-106); High Density Lipoprotein 91 mg/dL; Potassium 4.1 mmol/L (3.5-5.1); Sodium Level 138 mmol/L (136-145); T4 Free Direct 0.98 ng/dL (0.76-1.46); Thyroid Stim Hormone (TSH) 4.11 uIU/mL (0.358-3.74); Triglycerides 62 mg/dL; Very Low Density Lipoprotein 12 mg/dL (5-40)
== END | disposition home or self-care (01) ==
LOC: MFPLAB 10:43
PROVIDERS: PCP Family Medicine; Referring Provider Family Medicine; Visit Provider Family Medicine
DX: I10 Essential (primary) hypertension (principal); E03.9 Hypothyroidism, unspecified
CPT/HCPCS: 36415; 80048; 80061; 84439; 84443; 84481

== ENCOUNTER → 2022-05-10 | Outpatient (CLI) | payer MEDICARE, OTHER, SELFPAY | END | disposition home or self-care (01) | LOC: PSN 10:13 | PROVIDERS: PCP Family Medicine; Referring Provider Physician Assistant Medical; Visit Provider Physician Assistant Medical | DX: I47.1 Supraventricular tachycardia (principal) | CPT/HCPCS: 93225; 93226 ==

== ENCOUNTER → 2022-06-07 | Outpatient (CLI) | payer MEDICARE, OTHER, SELFPAY ==
--- NOTE | 2022-06-07 13:05 | CT_ITS ---
STUDY: CT CHEST WITHOUT CONTRAST REASON FOR EXAM: Female, 77 years old. J84.10. Atrial fibrillation. Palpitations. RADIATION DOSAGE (If Supplied By Facility): CTDIvol = ( 14.44 ) mGy, DLP = ( 498.02 ) mGycm TECHNIQUE: Transaxial imaging was performed without the administration of intravenous contrast material. Multiplanar coronal and sagittal images were reformatted. Individualized dose optimization techniques were used for this CT. COMPARISON: Comparison is made with prior examination dated 06/06/2021. FINDINGS: CHEST Small bilateral axillary lymph nodes. Stable linear scarring in the medial left lung apex. Stable 6 mm noncalcified nodule in the subpleural aspect of the medial aspect of the superior segment of the right lower lobe as seen on axial image #45. Stable 4 mm noncalcified nodule in the subpleural surface in the right lower lobe as seen on axial image #63. There is no demonstrated pleural abnormality. There are calcifications of the coronary arteries. There are calcifications of the coronary arteries. Normal mediastinum. Calcified right hilar lymph nodes. Normal unenhanced pulmonary arteries. There is atherosclerotic calcification of the aortic arch.. There are multi-level degenerative changes of the thoracic spine. There is no demonstrated abnormality of the visualized upper abdomen. CT/Chest without Contrast IMPRESSION: Stable examination. Electronically Signed: Eliazar Dubon MD at 14:18 EST ,
== END | disposition home or self-care (01) ==
LOC: CT 13:00
PROVIDERS: PCP Family Medicine; Referring Provider Internal Medicine Pulmonary Disease; Visit Provider Internal Medicine Pulmonary Disease
DX: J84.10 Pulmonary fibrosis, unspecified (principal)
CPT/HCPCS: 71250

== ENCOUNTER 2022-07-11 13:00 | Outpatient (RCR) | payer MEDICARE, OTHER, SELFPAY ==
--- NOTE | 2022-06-13 12:56 | HP.PTEVAL ---
Patient's Visit Information ABIEL HILL is a 77 year old F referred to Physical Therapy by Dr. Juan Jose Carson DO with a diagnosis of OA R knee R TKR in 2019. Date of Evaluation: 06/13/22 Physical Therapist: ELENA Price - Visit Plan Frequency: 2x /Week Duration: 2 Months Plan: 2X/ week for 4 weeks in [place] for core stability, R hip and knee strength, gait training, functional transfers with HEP - Subjective Pt had a R TKR in [address] Carson. She saw him last night cause she woke up in the middle of the night with pain and he put her anti-inflammatories and now she is not limping. The pain has been doing so much better since being on the anti-inflamm. When she got up at night she would have pain all the way down the front of the leg to the ankle. She would have N&T. She also back issues and has LBP and has had that for while. She would like to do water therapy again. She has slowed her walking and has only been able to walk less than a mile now due to the pain. Stairs: she goes up the step with her L and then her R and then going down she goes down with her R leg first with a railing. Sit to stand: she does that fine with her arms she reports. Sleeping: she is sleeping so much better now. - Pain R leg pain Pain Intensity (Out of 10): 2 LBP Pain Intensity (Out of 10): 6 R knee pain Pain Intensity (Out of 10): 2 - Objective Gait: Walks with decrease stride and decrease stance time on the R LE. Trunk AROM: flex 50%, Ext 25%, SB B 50%, Rot B 25% with and increase catch with side bending both R and L. LE MMT: R hip flex 8.2 and L hip flex 8.7. R knee ext 22.9 and L knee ext 22.8. R knee flex 14.9 and L knee flex 13.6. R knee AROM 0-130 degrees. L knee AROM 0-130 degrees. Bridge: only 1/4 normal ROM. Pt is able to SLR on the R but very weak and extensor lag. standing heel and toe raises X 10 holding onto the hughes rail with no pain. SLUMP TEST + on the R for anterior thigh pain and then Hamstring and gastroc stretch - Balance/Special Test Scores Lower Extremity Functional Score: 31 - Goals Goal 1:: I HEP Goal Time Frame: 6-8 Weeks Goal 2:: Be able to walk with more equal stance time and no pain Goal Time Frame: 6-8 Weeks Goal 3:: Resume recreational walking with no pain Goal Time Frame: 6-8 Weeks Goal 4:: Be able to SLR without extensor lag on the R Goal Time Frame: 6-8 Weeks - Rehabilitation Potential Rehabilitation Potential: Good - Anticipated Interventions Patient/Client Instruction: Educate patient on: Condition, Plan of Care For the Purpose of:: To decrease pain, To increase ROM, To improve nutrient delivery to tissue, To improve muscle performance and motor function, To improve ability to perform ADL's, To increase tolerance to activity/condition/position, To improve performance and independence with ADL's, To decrease level of supervision to perform tasks, To improve ability of physical actions for home/community/work/leisure, To improve gait and locomotor functions, To improve health of tissue, To decrease soft tissue restriction, To increase flexibility/ROM, To improve endurance, To improve balance, To improve safety with gait, To assume or resume ADL's, To reduce risk of recurrence, To improve safety, To improve health and function Therapeutic Exercise to Include: Strength training, Balance training, Body mechanics, Postural training, Flexibilty training, Gait and locomotor training, Neuromotor development, In an aquatic setting, Active ROM, Dynamic Lumbar Stabilization For the Purpose of:: To decrease pain, To increase ROM, To improve nutrient delivery to tissue, To increase oxygenation perfusion, To improve muscle performance and motor function, To improve ability to perform ADL's, To increase tolerance to activity/condition/position, To improve performance and independence with ADL's, To decrease level of supervision to perform tasks, To improve ability of physical actions for home/community/work/leisure, To improve gait and locomotor functions, To improve health of tissue, To decrease soft tissue restriction, To increase flexibility/ROM, To improve endurance, To improve balance, To improve safety with gait Functional Training to Include: Gait training For the Purpose of:: To improve gait and locomotor functions, To improve safety with gait Thank you for the opportunity to evaluate your patient. For Medicare and Medicare HMO plans, please review the plan of care and approve it. It will need to be FAXED BACK to us at [phone] for Medicare purposes. For Medicare only, by signing this I certify the plan of care. Please let me know if there are questions or concerns regarding this plan of care. Physician Signature: Date:
--- NOTE | 2022-07-11 13:37 | HP.PTDCSUM ---
It has been my pleasure to treat ABIEL HILL referred by Dr. Juan Jose Carson DO, with the diagnosis of OA R knee R TKR in 2019 for a total of 9 visit(s). Discharge Date: 07/11/22 Please see the following information for a summary of their discharge status. Subjective: Pt liked the pool. She reports that her R knee pain is better. Pt has a little stiffness but no pain. Her friend gave her a knee brace and she is wearing today for the first time but she thinks it is making her knee swell. R leg pain Pain Intensity (Out of 10): 0 LBP Pain Intensity (Out of 10): 0 R knee pain Pain Intensity (Out of 10): 0 % Improvement: 80 Objective/Function: Gait:Able to walk with equal stance time B. SLR: able to SLR X 5 with no extensor lag. Instructed pt in leg press machine and seated hip abd for Idep use Goal 1:: I HEP Goal Progress: Goal Met Goal 2:: Be able to walk with more equal stance time and no pain Goal Progress: Goal Met Goal 3:: Resume recreational walking with no pain Goal Progress: Goal Met Goal 4:: Be able to SLR without extensor lag on the R Goal Progress: Goal Met Plan: DC PT to Indep walking and [facility] routine. Discharge Comments: DC PT to [facility] indep program If there are questions or concerns regarding this patient's physical therapy, please feel free to call me at [phone]. Thank you for the referral of this patient. Sincerely, Azalea Pope, MPT Balance/Gait/Functional tests - Balance/Special Test Scores Lower Extremity Functional Score: 48
== END 2022-07-11 14:27 | disposition home or self-care (01) ==
LOC: PT 13:00
PROVIDERS: PCP Family Medicine; Referring Provider Orthopaedic Surgery; Visit Provider Orthopaedic Surgery
DX: M17.11 Unilateral primary osteoarthritis, right knee (principal); Z47.1 Aftercare following joint replacement surgery; Z96.651 Presence of right artificial knee joint
CPT/HCPCS: 97110; 97113; 97161

== ENCOUNTER → 2022-09-10 | Outpatient (CLI) | payer MEDICARE, OTHER, SELFPAY ==
[2022-09-10 16:41] LABS: Anion Gap 8 (5-15); BUN 21 mg/dL (7-18); Calcium,Total 9.4 mg/dL (8.5-10.1); Chloride 106 mmol/L (98-107); Cholesterol 209 mg/dL (200); Creatinine, Serum 0.84 mg/dL (0.55-1.02); EST Glomerular Filtration Rate 70 mL/min (>60); Est Glom Filt Rate - Afr Amer 85 mL/min (>60); Glucose 76 mg/dL (74-106); High Density Lipoprotein 78 mg/dL; Potassium 4.6 mmol/L (3.5-5.1); Sodium Level 139 mmol/L (136-145); Thyroid Stim Hormone (TSH) 2.57 uIU/mL (0.358-3.74); Triglycerides 59 mg/dL; Very Low Density Lipoprotein 12 mg/dL (5-40)
== END | disposition home or self-care (01) ==
LOC: MFPLAB 11:30
PROVIDERS: PCP Family Medicine; Visit Provider Family Medicine
DX: E03.9 Hypothyroidism, unspecified (principal); I10 Essential (primary) hypertension
CPT/HCPCS: 36415; 80048; 80061; 84443

== ENCOUNTER 2022-10-31 15:57 | Emergency (ER) | payer MEDICARE, OTHER, SELFPAY ==
[2022-10-31 15:58] VITALS: BP 133/92; PULSE 64; RESP 18; TEMP 35.8; O2SAT 96; BMI 30.5
[2022-10-31 16:25] LABS: Absolute Lymphocyte Count 1.65 X10^3/uL (0.83-4.51); Absolute Neutrophil Count 3.2 X10^3/uL (2.0-7.7); Basophil# 0.03 X10^3/uL; Basophil% 0.5 % (0-1); Eosinophil# 0.21 X10^3/uL; Eosinophils% 3.8 % (0-5); Hematocrit 36.6 % (37-47); Hemoglobin 12.5 g/dL (12.0-15.0); Lymphocyte # 1.65 X10^3/ul (0.83-4.51); Lymphocyte % 29.5 % (19-41); Mean Corp Hgb Conc 34.2 g/dL (32-36); Mean Corpuscular Hgb 29.4 pg (27.0-32.0); Mean Corpuscular Volume 86.1 fL (81-99); Monocyte# 0.51 X10^3/uL; Monocyte% 9.1 % (0-10); NRBC Flagged by Analyzer 0 % (0-5); Neutrophil # 3.17 X10^3/uL (2.7-7.7); Neutrophil % 56.7 % (47-70); Platelet Count 191 K/mm3 (150-450); RBC Distribution Width CV 14.5 % (11.6-14.6); RBC Distribution Width SD 45.3 fl (35.1-43.9); Red Blood Count 4.25 M/mm3 (4.2-5.4); White Blood Count 5.6 K/mm3 (4.4-11.0)
[2022-10-31 16:35] LABS: Bacteria 0 SEEN /hpf (None Seen); Mucous, Urine 0 SEEN /hpf (<or=2+)
[2022-10-31 16:38] LABS: Color, Urine Yellow (Yellow); Glucose, Dipstick Normal (Normal); Ketone-Dipstick Negative (Negative); Leukocyte Esterase-Dipstick 25 /ul (Negative); Nitrite-Dipstick Negative (Negative); Occult Blood-Urine 25 /ul (Negative); Protein-Dipstick Negative (Negative); Specific Gravity, Urine 1.015 (1.002-1.030); Urine Bilirubin Dipstick Negative (Negative); Urine Clarity Clear (Clear); Urine Urobilinogen Normal (Normal)
[2022-10-31 16:44] LABS: ALB/GLOB Ratio 1.1 RATIO (0.9-2.4); AST(SGOT) 19 U/L (15-37); Alanine Aminotransfer ALT/SGPT 20 U/L (13-56); Albumin, Serum 3.6 g/dL (3.2-5.0); Alkaline Phosphatase 73 U/L (45-117); Anion Gap 6 (5-15); BUN 20 mg/dL (7-18); BUN/Creat Ratio 22.4 RATIO (10-20); Calcium,Total 9.3 mg/dL (8.5-10.1); Chloride 109 mmol/L (98-107); Creatinine, Serum 0.89 mg/dL (0.55-1.02); EST Glomerular Filtration Rate 65 mL/min (>60); Est Glom Filt Rate - Afr Amer 79 mL/min (>60); Estimated Creatinine Clearance 52.29 ml/min; Globulin 3.2 g/dL (2.2-4.2); Glucose 92 mg/dL (74-106); Potassium 4.4 mmol/L (3.5-5.1); Protein, Total 6.8 g/dL (6.4-8.2); Sodium Level 138 mmol/L (136-145)
[2022-10-31 17:02] LABS: Amorphous Sediment 1+ PHOS; Red Blood Cells-Urine 0-5 SEEN /hpf (0-5); Squamous Epithelial Cells - UA 0-5 SEEN /hpf (5-10); White Blood Cells 0-5 SEEN /hpf (0-5)
--- NOTE | 2022-10-31 17:21 | EKG12_ITS ---
Test Reason : ABD PAIN Blood Pressure : / mmHG Vent. Rate : 049 BPM Atrial Rate : 049 BPM P-R Int : 152 ms QRS Dur : 086 ms QT Int : 466 ms P-R-T Axes : 013 004 -04 degrees QTc Int : 420 ms Sinus bradycardia with frequent Premature ventricular complexes Otherwise normal ECG Confirmed by NOÉ FREDERICK, TARA ([id number]), associate editor EBONI MIDDLETON ([id number]) on 11/05/2022 1:00:53 PM Referred By: Confirmed By:MERLIN UMANZOR MD
--- NOTE | 2022-10-31 17:22 | CT_ITS ---
STUDY: CT ABDOMEN AND PELVIS WITH CONTRAST REASON FOR EXAM: Female, 77 years old. RLQ pain r/o appendicitis, hernia RADIATION DOSAGE (If Supplied By Facility): CTDIvol = ( 17.34 ) mGy, DLP = ( 933.11 ) mGycm TECHNIQUE: Transaxial images were obtained from the dome of the diaphragm to the symphysis pubis without oral contrast. Isovue 370-100ml was administered. Sagittal and coronal images were reconstructed. Individualized dose optimization techniques were used for this CT. COMPARISON: CT chest June 07, 2022. FINDINGS: There are stable mild interstitial and nodular increased opacities of the lower lungs. The visualized portions of the heart are within normal limits. Normal liver. Normal gallbladder and extrahepatic biliary system. Normal spleen. Normal pancreas. Normal bilateral adrenal glands. Normal right kidney. Normal left kidney. There is wall thickening of the distal stomach. Normal small intestine. There are a few colonic diverticula consistent with diverticulosis. There is non-visualization of the appendix. There is diffuse atherosclerotic calcification of the abdominal aorta, without a demonstrated aneurysm. Normal inferior vena cava. Normal retroperitoneum. Normal urinary bladder. There is atrophy of the uterus. There is no free fluid in the abdomen or pelvis. Normal abdominal wall. There is degenerative change of the spine. There are is grade 1 spondylolisthesis at L5-S1 with bilateral pars interarticularis defects of L5. CT/Abdomen/Pelvis W IV Cont ONLY IMPRESSION: Colonic diverticulosis. No obstruction or abscess. Wall thickening of the distal stomach with gastritis versus ulcer disease. The appendix is not visualized. Electronically Signed: Tam Hawthorne MD at 18:34 EDT ,
[2022-10-31 17:30] LABS: Lipase 39 U/L (13-75)
[2022-10-31] MEDS: 0.9% Normal Saline 1,000 ML 1000 ML IV (17:36)
[2022-10-31] MEDS: Ketorolac 15 MG/ML Vial IV (17:36)
[2022-10-31] MEDS: Ondansetron 4 MG/2 ML Vial IV (17:36)
[2022-10-31] MEDS: Morphine 4 MG/ML Syringe IV (17:37)
[2022-10-31 17:58] VITALS: BP 130/98; PULSE 79; RESP 16; O2SAT 97
[2022-10-31 18:36] LABS: Lactic Acid 0.4 mmol/L (0.4-1.9)
--- NOTE | 2022-10-31 19:25 | EX.ED.DYSGE1 ---
HPI History of Present Illness Chief Complaint: Abd Pain [facility] Medical History Asthma Asthmatic bronchitis with exacerbation Atrial fibrillation Cough COVID-19 Depression Encounter for screening for COVID-19 Essential hypertension Exacerbation of asthma Femoral hernia GERD (gastroesophageal reflux disease) History of colonic polyps Hypothyroidism Inguinal hernia of right side without obstruction or gangrene Osteoporosis PSVT (paroxysmal supraventricular tachycardia) Respiratory failure with hypoxia Suspected 2019 novel coronavirus infection Home Medications levocetirizine 5 mg tablet 5 mg PO DAILY ALLERGIES 02/26/16 [History Last Taken Unknown] sertraline 50 mg tablet 50 mg PO DAILY DEPRESSION 02/26/16 [History Last Taken Unknown] montelukast 10 mg tablet 10 mg PO DAILY allergies 08/20/19 [History Last Taken Unknown] omeprazole 20 mg capsule,delayed release 20 mg PO BID GERD 01/08/20 [History Last Taken 08/18/20] oxybutynin chloride 5 mg tablet,extended release 24 hr 5 mg PO BID bladder 01/08/20 [History Last Taken Unknown] levothyroxine 25 mcg tablet 50 mcg PO DAILY thyroid 05/04/22 [History Last Taken Unknown] metoprolol tartrate 25 mg tablet 12.5 mg (1/2 x 25 mg) PO BID blood pressure #90 tabs 08/13/22 [Rx Last Taken Unknown] oxycodone-acetaminophen 5 mg-325 mg tablet (Percocet) 1 tab PO Q6H PRN pain 3 days #12 tabs 10/31/22 [Rx Last Taken Unknown] Allergy/AdvReac Type Severity Reaction Status Date / Time meperidine [From Demerol] AdvReac Mild syncope Verified 10/31/22 16:00 Family History Father CVA (cerebral vascular accident) Cancer prostate Brother Heart disease Mother CHF (congestive heart failure) Surgical History History of bunionectomy of both great toes History of femoral hernia repair History of left heart catheterization (01/18/20) History of open reduction and internal fixation (ORIF) procedure History of ovarian cystectomy Social History Smoking Status: Never smoker alcohol intake: never EXAM Physical Exam Const Vital Signs: 10/31/22 15:58 10/31/22 17:58 10/31/22 20:19 Temperature 96.5 F L Temperature Source Temporal Pulse Rate 64 79 56 L Respiratory Rate 18 16 18 Blood Pressure 133/92 H 130/98 H 146/82 H Blood Pressure Mean 105 108 103 Pulse Ox 96 97 95 Oxygen Delivery Method Room Air Room Air Room Air 10/31/22 21:32 Temperature Temperature Source Pulse Rate 60 Respiratory Rate 18 Blood Pressure 138/88 H Blood Pressure Mean Pulse Ox 96 Oxygen Delivery Method MDM MDM MDM Narrative Medical decision making narrative: HISTORY OF PRESENT ILLNESS: 77-year-old female here with right lower quadrant kyaw pain that started acutely prior to arrival. Denies changes to bowel or bladder habits. [place] fever or vomiting. Notes history of femoral hernia repair in the past. REVIEW OF SYSTEMS: Pertinent positives: Abdominal pain Pertinent negatives: Vomiting or fever PHYSICAL EXAM: Nursing triage notes reviewed, Vital signs reviewed Constitutional: please see mdm HENT: MMM Eyes: Pupils equal round and reactive to light, Extraocular muscles intact Neck: No stridor, no JVD, full neck ROM Lungs: Clear to auscultation, No wheezing or rales. No increased work of breathing, no conversational dyspnea, no accessory muscle use, no nasal flaring. No respiratory distress noted Heart: Regular rate and rhythm, No murmurs, No rubs and No gallops, 2+ distal pulses (radial, femoral, posterior tibial) in all extremities Abdomen: Soft, right lower quadrant TTP, noted bulge in the right lower quadrant that is not easliy reducible, there are no overlying skin changes there is no rigidity, rebound or guarding, no obvious peritoneal signs, no palpable pulsatile abdominal masses, no auscultated abdominal bruit : No CVAT Extremities: No edema Neuro: No focal neurological deficits, cranial nerves II through XII intact, 5/5 strength in all extremities. Intact sensation to light touch in all extremities, 2+ reflexes bilateral patella tendons. Normal gait. No ataxia. Skin: No rash or lesions noted MEDICAL DECISION MAKING: Chief Complaint: Abdominal pain External records reviewed: CT scan from 2020 shows no evidence of acute inflammatory process or surgical process Factors affecting care: Hypothyroidism, asthma, hypertension, hernia Social determinants of health: Elderly History obtained from others: none Consults: none [] ALL IMAGES (IF OBTAINED) HAVE BEEN PERSONALLY REVIEWED AND INTERPRETED BY MYSELF. EKG with sinus bradycardia, left axis deviation, normal NC, no obvious STEMI CBC without leukocytosis, severe anemia, no thrombocytopenia. BMP without evidence of significant electrolyte abnormalities, no anion gap, no acute kidney injury. Lactate is wnl indicating no end-organ hypoperfusion and/or hypoxia. LFTs show no evidence of hepatobiliary pathology. Urinalysis shows no evidence of urinary inflammation suggestive of UTI MDM Narrative: Patient was hemodynamically stable, afebrile, nontoxic-appearing I considered the following differential diagnosis: Perforation, obstruction, UTI, pyelonephritis, appendicitis CT scan revealed no evidence of incarcerated hernia, acute appendicitis. I suspect the patient's right groin swelling is due to an inflamed lymph node. Unclear etiology however patient has no signs of systemic inflammation, endorgan hypoperfusion with a negative lactate and no anion gap. No evidence of UTI or other life-limiting etiology. Repeat abdominal exam with resolved right lower quadrant hernia. I suspect the patient had a transient hernia that spontaneously reduced after pain medicine. Given stable vitals, unremarkable labs and images I do not feel the patient needs emergent surgical consultation or admission at this time. She will be given anti-inflammatories and follow-up to primary care physician for further outpatient evaluation and treatment. The patient and/or family, caregivers express understanding. The patient and/or family, caregivers agrees with the plan. Total critical care time today provided was at least 0 minutes. This excludes separately billable procedures. Critical care time (if documented) is secondary to the patient having high probability of clinically significant/life threatening deterioration in the patient's condition which required my urgent intervention. Shared decision making: I will have a discussion with the patient and or visitors regarding risk/benefits of further testing or admission. They will be made aware of of the risk/benefits inherent in this decision they will be given the opportunity to voice understanding. Lab Data Attestation: I reviewed the patient's lab results. Labs: Laboratory Results - last 24 hr 10/31/22 10/31/22 10/31/22 16:20 16:24 17:35 WBC 5.6 RBC 4.25 Hgb 12.5 Hct 36.6 L MCV 86.1 MCH 29.4 MCHC 34.2 RDW Std Deviation 45.3 H RDW Coeff of Nancy 14.5 Plt Count 191 MPV 10.0 Immature Gran % (Auto) 0.400 Neut % (Auto) 56.7 Lymph % (Auto) 29.5 [place] % (Auto) 9.1 Eos % (Auto) 3.8 Baso % (Auto) 0.5 Absolute Neuts (auto) 3.2 Absolute Lymphs (auto) 1.65 Nucleated RBC % 0 Sodium 138 Potassium 4.4 Chloride 109 H Carbon Dioxide 23.0 Anion Gap 6 BUN 20 H Creatinine 0.89 Estim Creat Clear Calc 52.29 Est GFR (MDRD) Af Amer 79 Est GFR (MDRD) Non-Af 65 BUN/Creatinine Ratio 22.4 H Glucose 92 Lactic Acid 0.4 Calcium 9.3 Total Bilirubin 0.30 AST 19 ALT 20 Alkaline Phosphatase 73 Total Protein 6.8 Albumin 3.6 Globulin 3.2 Albumin/Globulin Ratio 1.1 Lipase 39 Urine Color Yellow Urine Clarity Clear Urine pH 7.0 Ur Specific [place] 1.015 Urine Protein Negative Urine Glucose (UA) Normal Urine Ketones Negative Urine Occult Blood 25 H Urine Nitrite Negative Urine Bilirubin Negative Urine Urobilinogen Normal Ur Leukocyte Esterase 25 H Urine RBC 0-5 SEEN Urine WBC 0-5 SEEN Ur Squamous Epith Cells 0-5 SEEN Amorphous Sediment 1+ PHOS Urine Bacteria 0 SEEN Urine Mucus 0 SEEN Radiography Diagnostic Testing: Clinical Impression(s) from Imaging Studies Abdomen/Pelvis CT 10/31/22 17:22 IMPRESSION: Colonic diverticulosis. No obstruction or abscess. Wall thickening of the distal stomach with gastritis versus ulcer disease. The appendix is not visualized. Electronically Signed: Tam Hawthorne MD at 18:34 EDT , Discharge Plan Triage Chief Complaint: Abd Pain ED Provider: Santiago Rubin Dx/Rx/DC Orders Clinical Impression: Hernia, Abdominal pain Instructions: Abdominal Pain, ED Hernia (Adult) Prescriptions: New oxycodone-acetaminophen [Percocet] 5-325 mg tablet 1 tab PO Q6H PRN (Reason: pain) 3 Days Qty: 12 0RF No Action oxybutynin chloride 5 mg tablet extended release 24hr 5 mg PO BID Patient Comments: Take 1 tablet by mouth daily sertraline 50 MG tablet 50 mg PO DAILY levocetirizine 5 MG tablet 5 mg PO DAILY omeprazole 20 mg capsule,delayed release(DR/EC) 20 mg PO BID montelukast 10 MG tablet 10 mg PO DAILY levothyroxine 25 mcg tablet 50 mcg PO DAILY metoprolol tartrate 25 mg tablet 12.5 mg PO BID Qty: 90 3RF Rx Instructions: Hold for heart less than 60 or systolic blood pressure less than 100 mmHg. Primary Care Provider: Nj Meraz Referrals: Juan Jose Villela MD [Med Staff - Active Staff] - Friend,DO Candelario [Med Staff - Active Staff] - Activity Restrictions/Additional Instructions: Thank you for trusting us with your care today! Please take Tylenol (2 pills, 650 mg), ibuprofen (2 pills, 400 mg) every 6 hours as needed for pain and fever control. If this regimen does not work for you please take Percocet. Please not take Percocet and Tylenol together as Percocet contains Tylenol Please return to the emergency department if your symptoms change or worsen. Specifically develop worsening abdominal pain, vomiting or cannot have bowel movements at irregular intervals Please follow with your gastroenterology and general surgeon for further outpatient evaluation and management. Disposition Disposition: Home, Self Care Discharge Date/Time: 10/31/22 21:37
[2022-10-31 20:19] VITALS: BP 146/82; PULSE 56; RESP 18; O2SAT 95
[2022-10-31 21:32] VITALS: BP 138/88; PULSE 60; RESP 18; O2SAT 96
== END 2022-10-31 21:37 | disposition home or self-care (01) ==
PROVIDERS: Emergency Provider Emergency Medicine; PCP Family Medicine; Visit Provider Emergency Medicine
DX: K46.9 Unspecified abdominal hernia without obstruction or gangrene (principal); R10.31 Right lower quadrant pain; Z86.16 Personal history of COVID-19
CPT/HCPCS: 74177; 80053; 81001; 83605; 83690; 85025; 93005; 96361; 96374; 96375; 99282; J7030; Q9967; A4216; J2405

== ENCOUNTER → 2022-11-05 | Outpatient (CLI) | payer MEDICARE, OTHER, SELFPAY ==
--- NOTE | 2022-11-05 14:01 | CT_ITS ---
EXAM: CT ABDOMEN AND PELVIS WITHOUT INTRAVENOUS CONTRAST CLINICAL INDICATION: ABDOMINAL PAIN -- ORAL CONTRAST ONLY TECHNIQUE: Helically acquired images were obtained of the abdomen and pelvis without intravenous contrast. This CT exam was performed using one or more of the following dose reduction techniques: automated exposure control, adjustment of the mA and/or kV according to patient size, and/or use of iterative reconstruction technique. COMPARISON: 10/31/2022. FINDINGS: LOWER THORAX: Unremarkable. Lung bases are clear. No cardiomegaly. No significant pericardial effusion. ABDOMEN: LIVER: Unremarkable. Homogeneous. GALLBLADDER AND BILE DUCTS: Unremarkable. No calcified gallstones. No gallbladder distention or wall edema. No intra- or extrahepatic biliary ductal dilation. PANCREAS: Unremarkable. No focal cystic mass. SPLEEN: Unremarkable. Normal size without focal cystic or solid mass. ADRENALS: Unremarkable. No nodules. KIDNEYS AND URETERS: Unremarkable. Normal renal size and position. No hydronephrosis. STOMACH AND BOWEL: Unremarkable. No stomach or bowel distention. No focal inflammatory change. PELVIS: APPENDIX: No evidence of acute appendicitis. BLADDER: Unremarkable. REPRODUCTIVE: Unremarkable as visualized. No mass. ABDOMEN and PELVIS: INTRAPERITONEAL SPACE: Unremarkable. No ascites or other fluid collection. No free air. BONES/JOINTS: Grade 1 spondylolisthesis at L5-S1. No suspicious lytic or blastic abnormality. SOFT TISSUES: Unremarkable. No discrete abdominal or pelvic wall hernia. VASCULATURE: Unremarkable. Abdominal aorta is normal in caliber. LYMPH NODES: Unremarkable. No enlarged lymph nodes. CT/Abdomen/Pel W ORAL Cont Only IMPRESSION: No acute findings. Grade 1 spondylolisthesis at L5-S1. Electronically Signed: Dee Cramer MD at 16:53 EDT Reading Location ID and State: [id number] / Tel , Service support ,
== END | disposition home or self-care (01) ==
LOC: CT 14:00
PROVIDERS: PCP Family Medicine; Referring Provider Surgery; Visit Provider Surgery
DX: R10.9 Unspecified abdominal pain (principal)
CPT/HCPCS: 74176

== ENCOUNTER 2022-11-07 09:01 | Day surgery (SDC) | payer MEDICARE, OTHER, SELFPAY ==
[2022-11-07] VITALS (7 sets, daily range): BP systolic 89–114; BP diastolic 54–81; PULSE 69–88; RESP 16–18; TEMP 36.2–36.7; O2SAT 94–99; BMI 29.7
--- NOTE | 2022-11-07 09:33 | HP.PCM_ITS ---
History and Physical Date of Admission: 11/07/22 Visit Reasons: ABDOMINAL PAIN ER F/U [facility] 10/31 Chief Complaint: ER/FU ABDOMINAL PAIN Allergies meperidine [From Demerol] Adverse Reaction (Mild, Verified 11/05/22 12:54) syncope Medications levocetirizine 5 mg tablet 5 mg PO DAILY ALLERGIES 02/26/16 [History Confirmed 11/05/22] sertraline 50 mg tablet 50 mg PO DAILY DEPRESSION 02/26/16 [History Confirmed 11/05/22] montelukast 10 mg tablet 10 mg PO DAILY allergies 08/20/19 [History Confirmed 11/05/22] omeprazole 20 mg capsule,delayed release 20 mg PO BID GERD 01/08/20 [History Confirmed 11/05/22] oxybutynin chloride 5 mg tablet,extended release 24 hr 5 mg PO BID bladder 01/08/20 [History Confirmed 11/05/22] levothyroxine 25 mcg tablet 50 mcg PO DAILY thyroid 05/04/22 [History Confirmed 11/05/22] metoprolol tartrate 25 mg tablet 12.5 mg (1/2 x 25 mg) PO BID blood pressure #90 tabs 08/13/22 [Rx Confirmed 11/05/22] oxycodone-acetaminophen 5 mg-325 mg tablet (Percocet) 1 tab PO Q6H PRN pain 3 days #12 tabs 10/31/22 [Rx] PFSH Medical History Asthma Asthmatic bronchitis with exacerbation Atrial fibrillation Cough COVID-19 Depression Encounter for screening for COVID-19 Essential hypertension Exacerbation of asthma Femoral hernia GERD (gastroesophageal reflux disease) History of colonic polyps Hypothyroidism Inguinal hernia of right side without obstruction or gangrene Osteoporosis PSVT (paroxysmal supraventricular tachycardia) Respiratory failure with hypoxia Suspected 2019 novel coronavirus infection Surgical History History of bunionectomy of both great toes History of femoral hernia repair History of left heart catheterization (01/18/20) History of open reduction and internal fixation (ORIF) procedure History of ovarian cystectomy Family History Father CVA (cerebral vascular accident) Cancer prostateBrother Heart diseaseMother CHF (congestive heart failure) Social History Smoking Status: Never smoker alcohol intake: never HPI HPI HPI: 77-year-old female. She is being referred by Dr. Nj Meraz for surgical consultation regarding right lower quadrant pain. A written copy of my surgical consult recommendations will be returned to him. The patient presented to the [facility] emergency room on October 31, 2022 complaining of right lower quadrant pain. Laboratory was not remarkable except for some thickening of the gastric wall. In particular it is noted that the abdominal wall is felt to be normal. I have personally reviewed the images. I see postoperative changes of the right groin but I do not see findings that would suggest recurrence of a previous right femoral hernia that I repaired for her throat open technique on August 18, 2020. No mesh was utilized at that time. Sign ificant size femoral defect was encountered. A suture repair was performed. Reading Dr. Santiago Rubin' emergency note of October 31, 2022He recommended follow- up with the patient's digital art director and general surgeon. In his note he suggest that he suspects the patient had a hernia that resolved after being given pain medication. The patient however states that she is done better since her emergency room visit. She points to the right lower quadrant McBurney's point area. Nothing improves the pain. She did take 1 oxycodone at home. She states that her bowels are very hard. No nausea or vomiting. No previous history of bowel obstruction. No history of shingles. She notes that I assisted her with a right femoral hernia and I have reviewed those notes and that is a low right groin incision not in the location of the patient's complaints. She is also has a right lateral abdomen slightly lower to the umbilicus transfer incision which she states Dr. Chacko assisted with excision of some type of mass involving her colon. The patient states that her appendix is still in place however. That surgical procedure was done many years ago. The patient cannot remember when she had her last colonoscopy but has been many years. She denies fever or chills or sweats. No bright red blood per rectum or melena. She states the pain is no different after defecating. She is got no nausea there is been no vomiting. She herself can feel tenderness but not a distinct mass or bulge. Lying supine does not offer any benefit. October 31, 2022 STUDY: CT ABDOMEN AND PELVIS WITH CONTRAST REASON FOR EXAM: Female, 77 years old. RLQ pain r/o appendicitis, hernia RADIATION DOSAGE (If Supplied By Facility): CTDIvol = ( 17.34 ) mGy, DLP = ( 933.11 ) mGycm TECHNIQUE: Transaxial images were obtained from the dome of the diaphragm to the symphysis pubis without oral contrast. Isovue 370-100ml was administered. Sagittal and coronal images were reconstructed. Individualized dose optimization techniques were used for this CT. COMPARISON: CT chest June 07, 2022. FINDINGS: There are stable mild interstitial and nodular increased opacities of the lower lungs. The visualized portions of the heart are within normal limits. Normal liver. Normal gallbladder and extrahepatic biliary system. Normal spleen. Normal pancreas. Normal bilateral adrenal glands. Normal right kidney. Normal left kidney. There is wall thickening of the distal stomach. Normal small intestine. There are a few colonic diverticula consistent with diverticulosis. There is non-visualization of the appendix. There is diffuse atherosclerotic calcification of the abdominal aorta, without a demonstrated aneurysm. Normal inferior vena cava. Normal retroperitoneum. Normal urinary bladder. There is atrophy of the uterus. There is no free fluid in the abdomen or pelvis. Normal abdominal wall. There is degenerative change of the spine. There are is grade 1 spondylolisthesis at L5-S1 with bilateral pars interarticularis defects of L5. CT/Abdomen/Pelvis W IV Cont ONLY IMPRESSION: Colonic diverticulosis. No obstruction or abscess. Wall thickening of the distal stomach with gastritis versus ulcer disease. The appendix is not visualized. Electronically Signed: Tam Hawthorne MD at 18:34 EDT , ROS General General: Yes fatigue; No weight change, appetite, colon cancer, breast cancer or weakness HEENT HEENT: No difficulty swallowing, eye injury, eye surgery, swollen glands or hoarseness Endo Endocrine: Yes thyroid disease; No diabetes mellitus, thyroid cancer, Hair loss, heat intolerance or cold intolerance Skin Skin: No rash or changing moles Breast Breast: No left breast lump, right breast lump, nipple discharge, breast pain, abnormal mammogram, abnormal US or breast enlargement Musc Musculoskeletal: Yes back problems and arthritis; No rheumatoid arthritis, gout or joint pain Cardio Cardiovascular: Yes atrial fibrillation; No murmur, pacemaker, heart disease, high blood pressure, heart attack, heart stent, palpitations, shortness of breat with exertion or chest pain Psych Psychiatric: Yes depression; No anxiety or hearing voices Resp Respiratory: No shortness of breath, No sleep apnea, No cough, No COPD, Yes asthma, No emphysema and No wheezing Gastro Gastrointestinal: Yes abdominal pain, No nausea or vomiting, No diarrhea, No constipation, No blood in stool, Yes acid reflux, No hemorrhoids, No ulcers, No gallbladder problem and No black,tarry stools Jose Hematologic: No blood thinners, No blood disorders, No bleeding, No anemia and No blood clots Neuro Neurologic: No system reviewed and no additional complaints, except as documented, No as per HPI, No abnormal gait, No abnormal hearing, No abnormal movements, No abnormal speech, No behavioral changes, No burning sensations, No confusion, No convulsions, No disequilibrium, No dizziness, No localized weakness, No frequent falls, No headache(s), No lack of coordination, No loss of vision, No memory loss, No numbness, No other visual disturbances, No radicular pain, No restless legs, No sensory deficit, No syncope, No tingling, No tremor(s), No weakness and No other Exam Const General: cooperative and no acute distress Nutritional Appearance: average body habitus Orientation: alert and awake [facility] Head: normal to inspection Eyes General: appearance normal, both eyes and all related structures Neck Neck: normal visual inspection Chest Chest palpation & inspection: normal inspection of the chest Resp Effort & Inspection: normal respiratory effort Auscultation: clear to auscultation bilaterally Cardio Rate: regular rate Rhythm: regular rhythm GI Palpation: soft and no hepatosplenomegaly Other: Tender to palpation right lower quadrant McBurney's point, some slight guarding, no fullness noted but not a distinct mass, I am able to distract the patient and get a deeper palpation. No rebound. No fascial defect. The patient was examined both supine and upright. She was more tender on the upright exam. At the 2 sites of the incisions the right groin incision and the right lateral mid abdomen incision there is no defect palpable no mass no bulge and this is not the focus of her discomfort. Bowel sounds are present but infrequent and I detect some tinkles and rushes. Musc Cervical Spine: normal cervical lordosis Skin Lesions: no lesions Extrem General: normal to inspection and no calf tenderness Psych Appearance: grossly normal Assessment and Plan Assessment and Plan (1) Abdominal pain: Status: Acute Qualifiers: Abdominal location: right lower quadrant Qualified Code(s): R10.31 - Right lower quadrant pain Plan: Other than the focus of right lower quadrant pain the other symptoms the patient describes as very hard stools. My initial diagnosis is right-sided constipation. She has not had a colonoscopy for an extended period of time. I do not believe that this is a ventral or incisional hernia or certainly not a recurrent right femoral hernia. During her ER visit she had a normal CBC. This would seemingly make it less likely to be acute or chronic appendicitis or right-sided diverticulitis. On my personal review of the CT imaging I certainly saw stool but no focus of inflammation. Maybe there was some small bowel wall thickening. I propose for her an orally contrasted abdominal pelvic CT scan done urgently today. I then additionally recommend an urgent colonoscopy with possible biopsy or polypectomy as indicated. I am suspecting a enterocolonic source of her discomfort. The patient's had an opportunity to ask and have questions answered. We will expedite her care. I appreciate the opportunity of assisting with her surgical management. Copy: Dr. Nj Hein M.D., F.A.C.S The patient states that she was able to tolerate her bowel prep and that it is worked well. Stools coming out relatively clear. She states that the sharp discomfort in the right lower quadrant has resolved. She simply has a residual feeling of something just not quite right but it is nowhere near as severe as prior to the bowel prep. This would lead credence to a tentative diagnosis of right-sided constipation. Connor Hein M.D., F.A.C.S.
--- NOTE | 2022-11-07 10:15 | COLBX_PTH ---
PATIENT: ABIEL HILL LOC: EN U#:[id number] AGE/SX: 77/F ROOM: RE11/07/[address]: Dr. Connor Hein MD : 1945 BED: DIS: 11/07/2022 SPEC #: [id number] RECD: 11/07/22 11:48 STATUS: SHAUN ORDAZ #: [id number] ADORE: 11/07/22 10:[address]: Connor Hein DEPT: SURGICAL PATHOLOGY RECD BY: Irene Henry ENTERED: 11/07/22 11:53 SP TYPE: COLON BX OTHR DR: Dr. Nj Meraz MD Tissues: A - Ileum, NOS B - Cecum, NOS Procedures: Surgery Specimen Level IV HEADER OPERATION: Colonoscopy PRE-OP DIAGNOSIS: Abdominal pain TISSUE SUBMITTED: A. Terminal ileum, B. Cecal biopsy MICROSCOPIC DIAGNOSIS A. Terminal ileum, biopsy: A fragment of small intestinal mucosa, no pathologic diagnosis. B. Cecum, biopsy: A fragment of junctional small intestinal and colonic mucosa, no pathologic diagnosis. SJ: 11/08/2022 MICROSCOPIC DESCRIPTION Slides are reviewed. GROSS DESCRIPTION A. Received is one container labeled with the patient name and designated terminal ileum. The specimen consists of one irregular fragment of light arredondo soft tissue that measures 0.5 x 0.4 x 0.1 cm. The specimen is totally submitted in one cassette. B. Received is one container labeled with the patient name and designated cecal. The specimen consists of one irregular fragment of light arredondo soft tissue that measures 0.3 x 0.3 x 0.1 cm. The specimen is totally submitted in one cassette. / JANNY:mojgan 11/07/22 TC:4 CPT: 93729 x2
--- NOTE | 2022-11-07 10:55 | OP.COLON_ITS ---
Patient Name: Hollie Dickey Procedure Date: 11/07/2022 10:20 AM Date of : 1945 Age: 77 Procedure: Colonoscopy Indications: Abdominal pain in the right lower quadrant Providers: Connor Hein MD Referring MD: Nj Meraz MD Medicines: See the Anesthesia note for documentation of the administered medications Patient Profile: Last Colonoscopy: more than 10 years ago. Complications: No immediate complications. Procedure: Pre-Anesthesia Assessment: - Prior to the procedure, a History and Physical was performed, and patient medications and allergies were reviewed. The patient's tolerance of previous anesthesia was also reviewed. The risks and benefits of the procedure and the sedation options and risks were discussed with the patient. All questions were answered, and informed consent was obtained. Prior Anticoagulants: The patient has taken no previous anticoagulant or antiplatelet agents. ASA Grade Assessment: II - A patient with mild systemic disease. After reviewing the risks and benefits, the patient was deemed in satisfactory condition to undergo the procedure. After I obtained informed consent, the scope was passed under direct vision. Throughout the procedure, the patient's blood pressure, pulse, and oxygen saturations were monitored continuously. The colonoscope was introduced through the anus and advanced to the ileocolonic anastomosis. The colonoscopy was performed without difficulty. The patient tolerated the procedure well. The quality of the bowel preparation was good. Ileocolonic anastomosis were photographed. Scope In: 10:33:21 AM Scope Withdrawal Time 0 hours 5 minutes 38 seconds Scope Out: 10:46:58 AM Total Procedure Duration Time 0 hours 13 minutes 37 seconds Findings: Hemorrhoids were found on perianal exam. There was evidence of a prior end-to-end ileo-colonic anastomosis in the proximal ascending colon. This was patent and was characterized by healthy appearing mucosa. The anastomosis was traversed. Biopsies were taken with a cold forceps for histology. Suggest that she has had a prior limited seek ectomy with straight on access to the ileocecal anastomosis and no evidence for an appendiceal orifice. All tissue in that location normal. Was able to get access to the terminal ileum easily and took a biopsy. I additionally took a biopsy of the remainder of the cecum. The colon (entire examined portion) was mildly tortuous. Scattered diverticula were found in the sigmoid colon and descending colon. The entire examined colon appeared normal. The proximal ascending colon appeared normal. Biopsies were taken with a cold forceps for histology. Impression: - Hemorrhoids found on perianal exam. - Patent end-to-end ileo-colonic anastomosis, characterized by healthy appearing mucosa. Biopsied. - Tortuous colon. - Diverticulosis in the sigmoid colon and in the descending colon. - The entire examined colon is normal. - The proximal ascending colon is normal. Biopsied. Recommendation: - Discharge patient to home. - Resume previous diet. - Continue present medications. - Miralax 1 capful (17 grams) in 8 ounces of water PO daily. - Repeat colonoscopy in 10 years for screening purposes. - Telephone my office for pathology results in 1 week. My current diagnosis for this patient is right-sided constipation and I recommend to her MiraLAX daily. She will be notified of pathology results as they become available. I am not anticipating that she will require further surgical treatment. Procedure Code(s): --- Professional --- 94906, Colonoscopy, flexible; with biopsy, single or multiple Diagnosis Code(s): --- Professional --- K64.9, Unspecified hemorrhoids Z98.0, Intestinal bypass and anastomosis status R10.31, Right lower quadrant pain K57.30, Diverticulosis of large intestine without perforation or abscess without bleeding Q43.8, Other specified congenital malformations of intestine CPT copyright 2017 [employer]. All rights reserved. The codes documented in this report are preliminary and upon nuclear medicine supervisor review may be revised to meet current compliance requirements. Connor Hein MD 11/07/2022 10:55:24 AM This report has been signed electronically. Number of Addenda: 0 Note Initiated On: 11/07/2022 10:20 AM
--- NOTE | 2022-11-07 10:55 | OP.CCLET_ITS ---
11/07/2022 Nj Meraz MD [address] [id number] Re : Colonoscopy procedure for Hollie Dickey Dear Dr. Meraz This procedure was performed on Monday, November 07, 2022. My impressions and recommendations are as follows: Impressions : - Hemorrhoids found on perianal exam. - Patent end-to-end ileo-colonic anastomosis, characterized by healthy appearing mucosa. Biopsied. - Tortuous colon. - Diverticulosis in the sigmoid colon and in the descending colon. - The entire examined colon is normal. - The proximal ascending colon is normal. Biopsied. Recommendations : - Discharge patient to home. - Resume previous diet. - Continue present medications. - Miralax 1 capful (17 grams) in 8 ounces of water PO daily. - Repeat colonoscopy in 10 years for screening purposes. - Telephone my office for pathology results in 1 week. My current diagnosis for this patient is right-sided constipation and I recommend to her MiraLAX daily. She will be notified of pathology results as they become available. I am not anticipating that she will require further surgical treatment. My findings are described in the full procedure note, which is enclosed. If I can be of further assistance, please feel free to contact me at Doctor phone number(s): Work: . Sincerely, Connor Hein MD 11/07/2022 10:55:24 AM This report has been signed electronically.
== END 2022-11-07 11:58 | disposition home or self-care (01) ==
LOC: EN 09:02 → AC 09:03
PROVIDERS: PCP Family Medicine; Referring Provider Family Medicine; Visit Provider Surgery
PROC: 0DJD8ZZ Inspection of Lower Intestinal Tract, Via Natural or Artificial Opening Endoscopic (ICD-10-PCS; CPT 45378; principal; 2022-11-07 10:10)
DX: K57.30 Diverticulosis of large intestine without perforation or abscess without bleeding (principal); I47.1 Supraventricular tachycardia; K64.9 Unspecified hemorrhoids; K21.9 Gastro-esophageal reflux disease without esophagitis; I10 Essential (primary) hypertension; E03.9 Hypothyroidism, unspecified; R10.31 Right lower quadrant pain; Z98.0 Intestinal bypass and anastomosis status; Z79.891 Long term (current) use of opiate analgesic; Z79.899 Other long term (current) drug therapy; Z86.010 Personal history of colon polyps; Z86.16 Personal history of COVID-19
CPT/HCPCS: 45380; 88305; J7120; J2405

== ENCOUNTER → 2023-03-29 | Outpatient (CLI) | payer MEDICARE, OTHER, SELFPAY ==
[2023-03-29 12:28] LABS: Hematocrit 41.5 % (37-47); Hemoglobin 13.3 g/dL (12.0-15.0); Mean Corpuscular Hgb 28.5 pg (27.0-32.0); Mean Corpuscular Volume 89.1 fL (81-99); Mean Platelet Vol. 10.3 fl (6.2-12.0); Platelet Count 203 K/mm3 (150-450); RBC Distribution Width CV 14.5 % (11.6-14.6); RBC Distribution Width SD 46.9 fl (35.1-43.9); Red Blood Count 4.66 M/mm3 (4.2-5.4); White Blood Count 4.7 K/mm3 (4.4-11.0)
[2023-03-29 13:22] LABS: ALB/GLOB Ratio 1.1 RATIO (0.9-2.4); AST(SGOT) 21 U/L (15-37); Alanine Aminotransfer ALT/SGPT 25 U/L (13-56); Albumin, Serum 3.4 g/dL (3.2-5.0); Alkaline Phosphatase 63 U/L (45-117); Anion Gap 5 (5-15); BUN 25 mg/dL (7-18); BUN/Creat Ratio 26.1 RATIO (10-20); Chloride 110 mmol/L (98-107); Creatinine, Serum 0.96 mg/dL (0.55-1.02); EST Glomerular Filtration Rate 60 mL/min (>60); Est Glom Filt Rate - Afr Amer 73 mL/min (>60); Globulin 3.2 g/dL (2.2-4.2); Glucose 74 mg/dL (74-106); Potassium 4.4 mmol/L (3.5-5.1); Protein, Total 6.6 g/dL (6.4-8.2); Sodium Level 141 mmol/L (136-145); T4 Free Direct 1.12 ng/dL (0.76-1.46); Thyroid Stim Hormone (TSH) 2.88 uIU/mL (0.358-3.74)
== END | disposition home or self-care (01) ==
LOC: MFPLAB 10:42
PROVIDERS: PCP Family Medicine; Visit Provider Nurse Practitioner Family
DX: E03.9 Hypothyroidism, unspecified (principal)
CPT/HCPCS: 36415; 80053; 84439; 84443; 85027

== ENCOUNTER 2023-04-03 10:00 | Outpatient (RCR) | payer MEDICARE, OTHER, SELFPAY ==
--- NOTE | 2023-01-16 15:22 | HP.PTEVAL_ITS ---
Patient's Visit Information Visit Information Visit Information: ABIEL HILL is a 77 year old F referred to Physical Therapy by MARY KATE Nolasco with a diagnosis of Hip Pain. Date of Evaluation: 01/16/23 Physical Therapist: Rubi Hansen DPT Visit Plan Frequency: 2x /Week Duration: 4 Weeks Plan: Aquatics- focus on LE and core strength/stabilization- decreased radicular s/s- postural correction- neutral spine Subjective Subjective: Patient reports that her low back hurts and radiates down to the right knee- sometimes its sharp pains in the right hip- she went to see ortho and they took an x-ray of her hip and everything looks good. There is nothing specific that aggravates it or makes it worse. The low back pain is always there- Worst: 4-5/10 Eases by a muscle rub- bending foward makes it worse so mopping makes it worse so she uses her foot to mop. She sits when she runs the vaccum. The pain in the hip is more on the belt line a little bit lower and can radiate into the groin area- that is more of a shooting pain- that is not all the time- that is inconsistent- the pain down the leg goes to the ankle. She does have some N/T in the toes- When she has the bad back pain she more N/T in the toes. She has had x-rays on her back before and had trouble previously but was unable to come up with the name of what she has. She saw Dr. Arroyo for her back and he sent her to Dr. Solitario for her back and he put her on Meloxicam for her back and her right knee. She has not had anything for her back prior but has had PT for her knees before. Bilateral TKR in 2019 and 2011. Sleep: disturbed- side- both sides- bed and on the couch. Fully I with all ADL's- no falls but she has had some loss of balance. No change in bowel or bladder- had a recent colonoscopy. 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 PMHx/Meds: see list scanned in chart. Objective Objective: Posture: FH, RS- can correct but does not maintain Gait: no deviation noted good arm swing and trunk rotation- poor posture HR/TR: able with UE A SLS: weight shift only ROM: Lumbar: flexion- hands to shins but requires slow return to stand and reports pain- extn: to neutral with pain all other motions dec by 25 with pain, LE: WFL Strength: Core: poor, hip: 4-/5 throughout, Knee: 4+/5, Ankle: 5/5 Flex: HS: severe, Gastroc: moderate Sensation: WNL to gross touch bilateral Special Tests L/S Slump test right side: Positive L/S Right Straight Leg Raise: Positive R Hip JONNY - Intraarticular Pathology: Positive R Hip Trendelenberg - Glut Medius: Positive Balance/Special Test Scores Lower Extremity Functional Score: 44 Goals Goal 1:: Patient will be I with HEP and progression Goal Time Frame: 4-6 Weeks Goal 2:: Patient will maintain proper posture t/o tx session to demo increased core s/s Goal Time Frame: 4-6 Weeks Goal 3:: Patient will report no radicular s/s for 1 week Goal Time Frame: 4-6 Weeks Goal 4:: Patient will report 80% improvement Goal Time Frame: 4-6 Weeks Rehabilitation Potential Physical Therapy Diagnosis: Patient presents with hypomobility- she has decreased LE and core strength/stabilization, pain free ROM, flex, and muscular endurance leading to poor posture and increased pain leading to poor posture and increased pain with ADL's. Rehabilitation Potential: Good Anticipated Interventions Patient/Client Instruction: Educate patient on: Benefits of Fitness Program Therapeutic Exercise to Include: Strength training, Endurance training, Balance training, Agility training, Body mechanics, Postural training, Flexibilty training, Gait and locomotor training, Neuromotor development, In an aquatic setting, Passive ROM, Active ROM, Dynamic Lumbar Stabilization and Scapular Strength/Stabilization For the Purpose of:: To improve muscle performance and motor function Text: Thank you for the opportunity to evaluate your patient. For Medicare and Medicare HMO plans, please review the plan of care and approve it. It will need to be FAXED BACK to us at [phone] for Medicare purposes. For Medicare only, by signing this I certify the plan of care. Please let me know if there are questions or concerns regarding this plan of care. Physician Signature: Date:
--- NOTE | 2023-02-18 09:53 | HP.PTREVAL ---
Re-Evaluation Intro: MARY KATE Nolasco, It has been my pleasure to treat ABIEL HILL over the last 7 visits for Hip Pain. Please see the progress note below for an update on the physical therapy plan of care! Subjective Subjective: Patient reports that she had x-rays taken of her lumbar spine and that is the issue- she has an MRI scheduled for Sat and on the she has an apt with Dr. Valle the records management specialist. She felt like the pool was helping at times but the PA wants her to try land therapy. She feels that the pain is pretty much the same. She wakes up at night and she hurts so bad that she can't go back to sleep. The pain down her leg is a 6-7/10 and is sharp and its all the way to her toes. She uses Skinners which is a muscle rub and they put her on a pain medication and that makes her feel a little bit better. She was also put on a steroid dose pack- that did make it feel better. She has not had any surgeries or a pacemaker. No one position makes her feel better- she has to keep changing- its the worse if she lays on her right side. Objective Objective/Function: Posture: forward head, rounded shoulders- can correct but does not maintain Observation: moves a lot throughout re-evaluation in sitting and rubs her right LE Gait: no deviation noted good arm swing and trunk rotation- poor posture- slow cory HR/TR: able with UE A SLS: weight shift only ROM: Lumbar: flexion- hands to shins but requires slow return to stand and reports pain- extn: to neutral with pain all other motions dec by 25 with pain, LE: WFL Strength: Core: poor, hip: 4-/5 throughout, Knee: 4+/5, Ankle: 5/5 Flex: HS: severe, Gastroc: moderate Sensation: WNL to gross touch bilateral Special Tests L/S Slump test right side: Positive L/S Right Straight Leg Raise: Positive R Hip JONNY - Intraarticular Pathology: Positive R Hip Trendelenberg - Glut Medius: Positive Plan Plan Plan: Land Therapy- centralization of s/s- exercise and ultrasound. Balance/Gait/Functional tests Balance/Special Test Scores Lower Extremity Functional Score: 20 Goals Goals Goal 1:: Patient will be I with HEP and progression Goal Time Frame: 4-6 Weeks Goal Progress: Progressing Goal 2:: Patient will maintain proper posture t/o tx session to demo increased core s/s Goal Time Frame: 4-6 Weeks Goal Progress: Progressing Goal 3:: Patient will report no radicular s/s for 1 week Goal Time Frame: 4-6 Weeks Goal Progress: Not Progressing Goal 4:: Patient will report 80% improvement Goal Time Frame: 4-6 Weeks Goal Progress: Not Progressing Anticipated Interventions Anticipated Interventions Patient/Client Instruction: Educate patient on: Benefits of Fitness Program Therapeutic Exercise to Include: Strength training, Endurance training, Balance training, Agility training, Body mechanics, Postural training, Flexibilty training, Gait and locomotor training, Neuromotor development, In an aquatic setting, Passive ROM, Active ROM, Dynamic Lumbar Stabilization and Scapular Strength/Stabilization For the Purpose of:: To improve muscle performance and motor function Re-Evaluation Ending Re-evaluation ending: Please do not hesitate to contact me at [phone] by phone or if you have questions or concerns regarding this new plan of care! Sincerely, Rubi Hansen DPT
--- NOTE | 2023-03-20 10:51 | HP.PTREVAL_ITS ---
Re-Evaluation Intro: MARY KATE Nolasco, It has been my pleasure to treat ABIEL HILL over the last 14 visits for Hip Pain. Please see the progress note below for an update on the physical therapy plan of care! Subjective Subjective: I am doing better. Feels like needs more instruct in gym. Hip and back are feeling good. Dull ache in LB R. Injection really helped about 50%. Was able to do her house chores in one day after the injection. Sleeping well. Activities at home are getting back to normal but bending to pick something up because it hurts. Objective Objective/Function: Walking well without antalgia today. ROM hip and back is WFL and without increased pain. most pain in last week has been with overdoing gym exercises on her own, still doing HEP. progressing nicely but not quite I in full gym program yet. Good prognosis for new goal of gym program I without increased pain. Plan Plan Plan: 2x/week for 2 more weeks to workout in gym and work to I with HSC, leg press, hip abd, knee ext, row, pull down, back ext, ab curl and give pist and pics for d/c Balance/Gait/Functional tests Balance/Special Test Scores Lower Extremity Functional Score: 56 Goals Goals Goal 1:: Patient will be I with HEP and progression Goal Time Frame: 4-6 Weeks Goal Progress: needs gym Goal 2:: Patient will maintain proper posture t/o tx session to demo increased core s/s Goal Time Frame: 4-6 Weeks Goal Progress: Goal Met Goal 3:: Patient will report no radicular s/s for 1 week Goal Time Frame: 4-6 Weeks Goal Progress: Progressing Goal 4:: Patient will report 80% improvement Goal Time Frame: 4-6 Weeks Goal Progress: 50% Goal 5:: I gym program for maintaining benefits of injection(core, LE adn post ural strength program) Goal Time Frame: 2-4 Weeks Goal Progress: NEW GOAL Anticipated Interventions Anticipated Interventions Patient/Client Instruction: Educate patient on: Benefits of Fitness Program Therapeutic Exercise to Include: Strength training, Endurance training, Balance training, Agility training, Body mechanics, Postural training, Flexibilty training, Gait and locomotor training, Neuromotor development, In an aquatic setting, Passive ROM, Active ROM, Dynamic Lumbar Stabilization and Scapular Strength/Stabilization For the Purpose of:: To improve muscle performance and motor function Re-Evaluation Ending Re-evaluation ending: Please do not hesitate to contact me at [phone] by phone or if you have questions or concerns regarding this new plan of care! Sincerely, Adam Melo, DPT, OCS, CSCS
--- NOTE | 2023-04-03 10:42 | HP.PTDCSUM ---
Discharge Summary D/C summary: It has been my pleasure to treat ABIEL HILL referred by MARY KATE Nolasco, with the diagnosis of Hip Pain for a total of 18 visit(s). Discharge Date: 04/03/23 Please see the following information for a summary of their discharge status. Subjective Subjective: Comfortable with exercises and can continue on her own. Continues some achyiness now and then 1/10 inermittently with sitting position. To doctor Valle in a month or so. Pain LBP: Pain Intensity (Out of 10): Unrated RLE: Pain Intensity (Out of 10): Unrated Overall Improvement % Improvement: 90 Objective Objective/Function: Walks without antalgia today although a little stiff exitting chair at first. steps up without rail reciprocally and down with one rail reciprocally. recommended to use rail but no antalgia. Goals Goal 1:: Patient will be I with HEP and progression Goal Progress: Goal Met Goal 2:: Patient will maintain proper posture t/o tx session to demo increased core s/s Goal Progress: Goal Met Goal 3:: Patient will report no radicular s/s for 1 week Goal Progress: Goal Met Goal 4:: Patient will report 80% improvement Goal Progress: 90% Goal 5:: I gym program for maintaining benefits of injection(core, LE adn postural strength program) Goal Progress: Goal Met Plan Plan: d/c to gym HEP D/C Information d/c sentence: If there are questions or concerns regarding this patient's physical therapy, please feel free to call me at [phone]. Thank you for the referral of this patient. Sincerely, Adam Melo, DPT, OCS, CSCS Balance/Gait/Functional tests Balance/Special Test Scores Lower Extremity Functional Score: 49 Improvement % Improvement: 90
== END 2023-04-03 19:00 | disposition home or self-care (01) ==
LOC: PT 10:00
PROVIDERS: PCP Family Medicine; Referring Provider Physician Assistant Surgical; Visit Provider Physician Assistant Surgical
DX: M16.11 Unilateral primary osteoarthritis, right hip (principal); M70.61 Trochanteric bursitis, right hip
CPT/HCPCS: 97035; 97110; 97113; 97162; 97164

== ENCOUNTER → 2024-01-13 | Outpatient (CLI) | payer MEDICARE, OTHER, SELFPAY ==
--- NOTE | 2024-01-13 15:05 | RAD_ITS ---
STUDY: X-RAY - PELVIS AND RIGHT HIP REASON FOR EXAM: Female, 78 years old. Hip pain. TECHNIQUE: 3 views of the pelvis and hip. COMPARISON: None. FINDINGS: Normal bowel gas pattern with air seen to the rectosigmoid. Moderate amount feces in colon. Osteopenia. Normal bilateral iliac wings, sacroiliac joints and visualized sacrum. Normal bilateral superior and inferior pubic rami. Normal pubic symphysis. Normal bilateral ischial tuberosities. Mild arthrosis of both hips. RAD/HIP, UNI W/ Pelvis 2-3 Views IMPRESSION: Osteopenia with mild arthrosis of both hips. No acute finding. Electronically Signed: Jules Ye MD at 15:51 EDT ,
== END | disposition home or self-care (01) ==
PROVIDERS: PCP Family Medicine; Referring Provider Family Medicine; Visit Provider Family Medicine
DX: M25.551 Pain in right hip (principal)
CPT/HCPCS: 73502

== ENCOUNTER → 2024-01-15 | Outpatient (CLI) | payer MEDICARE, OTHER, SELFPAY ==
--- NOTE | 2024-01-15 13:56 | CT_ITS ---
STUDY: CT ABDOMEN AND PELVIS WITH CONTRAST REASON FOR EXAM: Female, 78 years old. constipation. STAT RADIATION DOSAGE (If Supplied By Facility): CTDIvol = ( 14.68 ) mGy, DLP = ( 699.48 ) mGycm TECHNIQUE: Transaxial images were obtained from the dome of the diaphragm to the symphysis pubis without oral contrast. Oral and amp; IV Gastrografin and amp; 100mL Isovue-370 was administered. Sagittal and coronal images were reconstructed. Individualized dose optimization techniques were used for this CT. The protocol utilizes one or more of the following dose reduction techniques: automated exposure control, adjustment of mA and/or kV according to patient size,and/or use of iterative reconstruction technique. COMPARISON: CT chest abdomen and pelvis October 28, 2022. FINDINGS: The visualized lung bases are unremarkable. Cardiomegaly. Normal liver. Normal gallbladder and extrahepatic biliary system. Normal spleen. Normal pancreas. Normal bilateral adrenal glands. Normal right kidney. Normal left kidney. Normal visualized stomach. Oral contrast noted in the small bowel. Increased stool in the colon. Appendix not identified. Normal abdominal aorta. Normal inferior vena cava. Normal retroperitoneum. Normal urinary bladder. Fat-containing umbilical hernia. Grade 1 spondylolisthesis and spondylolysis L5-S1. CT/Abdomen/Pelvis WITH Contrast IMPRESSION: Increased stool in the colon. No acute disease. Electronically Signed: Fei Cameron MD at 17:26 EDT ,
[2024-01-15 14:41] LABS: Absolute Neutrophil Count 2.8 X10^3/uL (2.0-7.7); Basophil# 0.04 X10^3/uL; Basophil% 0.7 % (0-1); Eosinophil# 0.32 X10^3/uL; Eosinophils% 5.8 % (0-5); Hematocrit 38.4 % (37-47); Hemoglobin 12.4 g/dL (12.0-15.0); Lymphocyte % 32.6 % (19-41); Mean Corp Hgb Conc 32.3 g/dL (32-36); Mean Corpuscular Hgb 28.6 pg (27.0-32.0); Mean Corpuscular Volume 88.7 fL (81-99); Mean Platelet Vol. 10.4 fl (6.2-12.0); Monocyte# 0.55 X10^3/uL; NRBC Flagged by Analyzer 0 % (0-5); Neutrophil # 2.79 X10^3/uL (2.7-7.7); Neutrophil % 50.5 % (47-70); Platelet Count 206 K/mm3 (150-450); RBC Distribution Width CV 13.8 % (11.6-14.6); RBC Distribution Width SD 44.8 fl (35.1-43.9); Red Blood Count 4.33 M/mm3 (4.2-5.4); White Blood Count 5.5 K/mm3 (4.4-11.0)
[2024-01-15 15:48] LABS: ALB/GLOB Ratio 1.1 RATIO (0.9-2.4); AST(SGOT) 28 U/L (15-37); Alanine Aminotransfer ALT/SGPT 32 U/L (13-56); Albumin, Serum 3.6 g/dL (3.2-5.0); Alkaline Phosphatase 82 U/L (45-117); Anion Gap 7 (5-15); BUN 20 mg/dL (7-18); BUN/Creat Ratio 21.9 RATIO (10-20); Calcium,Total 9.5 mg/dL (8.5-10.1); Chloride 105 mmol/L (98-107); Creatinine, Serum 0.91 mg/dL (0.55-1.02); EST Glomerular Filtration Rate 63 mL/min (>60); Est Glom Filt Rate - Afr Amer 77 mL/min (>60); Globulin 3.2 g/dL (2.2-4.2); Glucose 90 mg/dL (74-106); Lipase 29 U/L (13-75); Potassium 4.6 mmol/L (3.5-5.1); Protein, Total 6.8 g/dL (6.4-8.2); Sodium Level 135 mmol/L (136-145)
== END | disposition home or self-care (01) ==
LOC: CT 13:46
PROVIDERS: PCP Family Medicine; Referring Provider Family Medicine; Visit Provider Family Medicine
DX: K59.00 Constipation, unspecified (principal); R42 Dizziness and giddiness
CPT/HCPCS: 36415; 74177; 80053; 83690; 85025; Q9967

== ENCOUNTER 2024-03-05 11:00 | Outpatient (RCR) | payer MEDICARE, OTHER, SELFPAY ==
--- NOTE | 2024-01-10 09:54 | HP.PTEVAL_ITS ---
Patient's Visit Information Visit Information Visit Information: ABIEL HILL is a 78 year old F referred to Physical Therapy by Dr. Ang Valle DO with a diagnosis of SPINAL STENOSIS , LUMBAR ,SPONDYLOLISYHESIS ,LUMBAR ,RADICULOPATHY. Date of Evaluation: 01/10/24 Physical Therapist: Ilir Gordon, PT, Cert MDT, OCS Visit Plan Frequency: 2x /Week Duration: 4 Weeks Plan: PT INTERVENTIONS DLS ,LUMBAR FLEXION ,POSTURAL EX'S ,ACTIVITIES MODIFICATION AND MODALTIES Subjective Subjective: This 78 y/o female presents to physical therapy with lumbar pain. Patient has had lumbar pain many years . Patient symptoms worse thus recommended PT. Patient has been under care with pain management .Medication meloxicam. Patient had imaging which showed spinal stenosis and spondylolisthesis. Aggravating factors walking/standing ,sitting bending and lifting. End of day gets worse. Alleviating factors rest. Patient location of pain symmetrical lumbar right side and occasional right lower leg .Coughing/sneezing-. Bowel/bladder -. Patient has had PT to include Aquatic therapy. No trauma. Patient condition affects QOL adn function. Patient goals to decrease pain. 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 Pain Right Back: Pain Intensity (Out of 10): 2 Pain Intensity Range: 10 Objective Objective: POSTURE: mild forward posture ,trunk flexed forward GAIT: reciprocal pattern forward trunk NEURO: denies paresthesia/tingling reflexes L3-4,L4-5,L5- S1 1 MMT: quads/hams 4/5 ,hip flexion 4-/5 ,ankle 5/5 FLEXABILITY: hamstrings mild tight LUMBAR ROM: flexion min/mod loss ,extension severe loss ,side glides min loss Special Tests L/S Slump test left side: Negative L/S Slump test right side: Negative L/S Left Straight Leg Raise: Negative L/S Right Straight Leg Raise: Negative Balance/Special Test Scores Oswestry Low Back Score: 27 Goals Goal 1:: I with HEP for lumbar Goal 2:: Patient to demonstrate 50% improvement with less pain and improved fu nction Goal Time Frame: 4-6 Weeks Goal 3:: Patient to improve back oswestry score by 5 points to improve QOL Goal Time Frame: 4-6 Weeks Goal 4:: Patient to improve lumbar ROM for function of recovery to perform ADLS at home Goal Time Frame: 4-6 Weeks Rehabilitation Potential Physical Therapy Diagnosis: This patient has lumbar pain with stenosis with symptoms worse with pain positioning and motion testing worse with walking/efrain ding affecting ADLS and housework tasks thus benefit from skilled PT Rehabilitation Potential: Good Anticipated Interventions Patient/Client Instruction: Educate patient on: Condition and Plan of Care For the Purpose of:: To decrease pain, To increase ROM, To improve muscle performance and motor function, To increase tolerance to activity/condition/position, To improve ability of physical actions for home/community/work/leisure, To improve health of tissue, To decrease soft tissue restriction, To increase flexibility/ROM and To improve tolerance to ADL's Therapeutic Exercise to Include: Strength training, Postural training, Flexibilty training and Dynamic Lumbar Stabilization For the Purpose of:: To decrease pain, To improve muscle performance and motor function, To increase tolerance to activity/condition/position, To improve ability of physical actions for home/community/work/leisure, To improve gait and locomotor functions, To improve health of tissue, To decrease soft tissue restriction, To increase flexibility/ROM, To improve endurance, To improve balance and To improve tolerance to ADL's TENS: Yes IF ES: Yes Cryotherapy (ice pack, ice massage): Yes Thermo therapy (hot pack): Yes Ultrasound (thermal/non thermal): Yes For the Purpose of:: To decrease pain, To increase ROM, To improve nutrient delivery to tissue, To increase oxygenation perfusion, To improve health of tissue and To decrease soft tissue restriction Text: Thank you for the opportunity to evaluate your patient. For Medicare and Medicare HMO plans, please review the plan of care and approve it. It will need to be FAXED BACK to us at [phone] for Medicare purposes. For Medicare only, by signing this I certify the plan of care. Please let me know if there are questions or concerns regarding this plan of care. Physician Signature: Date:
--- NOTE | 2024-02-06 10:15 | HP.PTREVAL ---
Re-Evaluation Intro: Dr. Ang Valle, DO, It has been my pleasure to treat ABIEL HILL over the last 7 visits for SPINAL STENOSIS , LUMBAR ,SPONDYLOLISYHESIS ,LUMBAR ,RADICULOPATHY. Please see the progress note below for an update on the physical therapy plan of care! Subjective Subjective: Doing some better with walking Objective Objective/Function: Patient will continue to benefit from skilled PT to decrease back pain thus goals are appropriate POSTURE: mild forward posture ,trunk flexed forward GAIT: reciprocal pattern forward trunk NEURO: denies paresthesia/tingling reflexes L3-4,L4-5,L5- S1 1 MMT: quads/hams 4/5 ,hip flexion 4-/5 ,ankle 5/5 FLEXABILITY: hamstrings mild tight LUMBAR ROM: flexion min/mod loss ,extension severe loss ,side glides min loss Plan Plan Plan: PT INTERVENTIONS DLS ,LUMBAR FLEXION ,POSTURAL EX'S ,ACTIVITIES MODIFICATION AND MODALTIES Balance/Gait/Functional tests Balance/Special Test Scores Oswestry Low Back Score: 24 Goals Goals Goal 1:: I with HEP for lumbar Goal Progress: Progressing Goal 2:: Patient to demonstrate 50% improvement with less pain and improved function Goal Time Frame: 4-6 Weeks Goal Progress: Progressing Goal 3:: Patient to improve back oswestry score by 5 points to improve QOL Goal Time Frame: 4-6 Weeks Goal Progress: Progressing Goal 4:: Patient to improve lumbar ROM for function of recovery to perform ADLS at home Goal Time Frame: 4-6 Weeks Goal Progress: Progressing Anticipated Interventions Anticipated Interventions Patient/Client Instruction: Educate patient on: Condition and Plan of Care For the Purpose of:: To decrease pain, To increase ROM, To improve muscle performance and motor function, To increase tolerance to activity/condition/position, To improve ability of physical actions for home/community/work/leisure, To improve health of tissue, To decrease soft tissue restriction, To increase flexibility/ROM and To improve tolerance to ADL's Therapeutic Exercise to Include: Strength training, Postural training, Flexibilty training and Dynamic Lumbar Stabilization For the Purpose of:: To decrease pain, To improve muscle performance and motor function, To increase tolerance to activity/condition/position, To improve ability of physical actions for home/community/work/leisure, To improve gait and locomotor functions, To improve health of tissue, To decrease soft tissue restriction, To increase flexibility/ROM, To improve endurance, To improve balance and To improve tolerance to ADL's TENS: Yes IF ES: Yes Cryotherapy (ice pack, ice massage): Yes Thermo therapy (hot pack): Yes Ultrasound (thermal/non thermal): Yes For the Purpose of:: To decrease pain, To increase ROM, To improve nutrient delivery to tissue, To increase oxygenation perfusion, To improve health of tissue and To decrease soft tissue restriction Re-Evaluation Ending Re-evaluation ending: Please do not hesitate to contact me at [phone] by phone or if you have questions or concerns regarding this new plan of care! Sincerely, Ilir Gordon, PT, Cert MDT, OCS
--- NOTE | 2024-03-05 11:32 | HP.PTDCSUM ---
Discharge Summary D/C summary: It has been my pleasure to treat ABIEL HILL referred by Dr. Ang Valle DO, with the diagnosis of SPINAL STENOSIS , LUMBAR ,SPONDYLOLISYHESIS ,LUMBAR ,RADICULOPATHY for a total of 14 visit(s). Discharge Date: 03/05/24 Please see the following information for a summary of their discharge status. Subjective Subjective: Doing okay Pain Right Back: Pain Intensity (Out of 10): 0 R hip: Pain Intensity (Out of 10): 0 Overall Improvement % Improvement: 50 Objective Objective/Function: POSTURE: mild forward posture ,trunk flexed forward GAIT: reciprocal pattern forward trunk NEURO: denies paresthesia/tingling reflexes L3-4,L4-5,L5- S1 1 MMT: quads/hams 4/5 ,hip flexion 4-/5 ,ankle 5/5 FLEXABILITY: hamstrings mild tight LUMBAR ROM: flexion min/mod loss ,extension severe loss ,side glides min loss Goals Goal 1:: I with HEP for lumbar Goal Progress: Goal Met Goal 2:: Patient to demonstrate 50% improvement with less pain and improved function Goal Progress: Goal Met Goal 3:: Patient to improve back oswestry score by 5 points to improve QOL Goal Progress: Goal Met Goal 4:: Patient to improve lumbar ROM for function of recovery to perform ADLS at home Goal Progress: Goal Met Goal Progress: Goal Met Plan Plan: D/C TO HEP D/C Information Discharge Comments: HEP d/c sentence: If there are questions or concerns regarding this patient's physical therapy, please feel free to call me at [phone]. Thank you for the referral of this patient. Sincerely, Ilir Gordon, PT, Cert MDT, OCS Balance/Gait/Functional tests Balance/Special Test Scores Oswestry Low Back Score: 8 Improvement % Improvement: 50
== END 2024-03-05 19:00 | disposition home or self-care (01) ==
LOC: PT 11:00
PROVIDERS: PCP Family Medicine; Referring Provider Orthopaedic Surgery; Visit Provider Orthopaedic Surgery
DX: M48.061 Spinal stenosis, lumbar region without neurogenic claudication (principal); M54.16 Radiculopathy, lumbar region; M43.16 Spondylolisthesis, lumbar region
CPT/HCPCS: 97110; 97162; 97530

== ENCOUNTER → 2024-08-24 | Outpatient (CLI) | payer MEDICARE, OTHER, SELFPAY ==
--- NOTE | 2024-08-24 10:52 | RAD_ITS ---
PROCEDURE: CHEST PA AND LATERAL 08/24/2024 REASON FOR EXAM: SHORTNESS OF BREATH TECHNIQUE: Frontal and lateral views of the chest. COMPARISON: None FINDINGS: Hardware: None Heart: Heart is upper limits of normal in size. Mediastinum: Pulmonary vasculature and hilar structures are unremarkable. Arteriosclerotic vascular disease of the aorta is noted. Trachea is midline. Lungs: Linear densities are identified in the lung bases bilaterally most likely representing either atelectasis or parenchymal scarring. No pneumonic infiltrates are seen. No consolidative process is seen. No pleural effusions are seen. Bones: Diffuse osteopenia in the bony thorax is seen. There is slight increased kyphotic curvature of the thoracic spine. Very mild degenerative changes of the thoracic spine are seen. RAD/Chest PA and Lateral IMPRESSION: Linear densities are identified in the lung bases bilaterally probably represen ting either atelectasis or parenchymal scarring. Arteriosclerotic vascular disease of the aorta Heart size is upper limits of normal in size. Diffuse osteopenia of the bony thorax with increased kyphotic curvature and mil d degenerative changes of the thoracic spine. Reading Location: [id number]
[2024-08-24 13:29] LABS: Absolute Lymphocyte Count 2.18 X10^3/uL (0.83-4.51); Basophil# 0.04 X10^3/uL; Basophil% 0.6 % (0-1); Eosinophil# 0.15 X10^3/uL; Eosinophils% 2.1 % (0-5); Hemoglobin 12.9 g/dL (12.0-15.0); Lymphocyte # 2.18 X10^3/ul (0.83-4.51); Lymphocyte % 30.6 % (19-41); Mean Corp Hgb Conc 33.1 g/dL (32-36); Mean Corpuscular Hgb 28.8 pg (27.0-32.0); Mean Corpuscular Volume 87.1 fL (81-99); Mean Platelet Vol. 10.4 fl (6.2-12.0); Monocyte# 0.64 X10^3/uL; NRBC Flagged by Analyzer 0 % (0-5); Neutrophil # 4.04 X10^3/uL (2.7-7.7); Neutrophil % 56.7 % (47-70); Platelet Count 245 K/mm3 (150-450); RBC Distribution Width SD 44.8 fl (35.1-43.9); Red Blood Count 4.48 M/mm3 (4.2-5.4); White Blood Count 7.1 K/mm3 (4.4-11.0)
== END | disposition home or self-care (01) ==
LOC: MTLAB 10:50
PROVIDERS: PCP Family Medicine; Referring Provider Family Medicine; Visit Provider Family Medicine
DX: I10 Essential (primary) hypertension (principal); R06.02 Shortness of breath
CPT/HCPCS: 36415; 71046; 85025

== ENCOUNTER 2024-08-31 15:53 | Outpatient (CLI) | payer MEDICARE, OTHER, SELFPAY ==
[2024-08-31 17:47] LABS: Absolute Lymphocyte Count 0.89 X10^3/uL (0.83-4.51); Absolute Neutrophil Count 10.6 X10^3/uL (2.0-7.7); Basophil# 0.03 X10^3/uL; Basophil% 0.2 % (0-1); Eosinophil# 0.01 X10^3/uL; Eosinophils% 0.1 % (0-5); Hematocrit 43.5 % (37-47); Hemoglobin 14.5 g/dL (12.0-15.0); Lymphocyte # 0.89 X10^3/ul (0.83-4.51); Lymphocyte % 7.3 % (19-41); Mean Corp Hgb Conc 33.3 g/dL (32-36); Mean Platelet Vol. 10.7 fl (6.2-12.0); Monocyte# 0.46 X10^3/uL; Monocyte% 3.8 % (0-10); NRBC Flagged by Analyzer 0 % (0-5); Neutrophil # 10.64 X10^3/uL (2.7-7.7); Neutrophil % 87.5 % (47-70); Platelet Count 245 K/mm3 (150-450); RBC Distribution Width SD 47.7 fl (35.1-43.9); White Blood Count 12.2 K/mm3 (4.4-11.0)
[2024-08-31 20:03] LABS: Anion Gap 13 (5-15); BUN 27 mg/dL (4-19); BUN/Creat Ratio 25.8 RATIO (10-20); Calcium,Total 9.6 mg/dL (7.6-11.0); Carbon Dioxide 21.5 mmol/L (21.0-32.0); Chloride 103 mmol/L (98-108); Creatinine, Serum 1.06 mg/dL (0.70-1.20); EST Glomerular Filtration Rate 54 (>60); Glucose 159 mg/dL (70-99); Potassium 4.5 mmol/L (3.3-5.1); Sodium Level 137 mmol/L (133-145); Thyroid Stim Hormone (TSH) 0.745 uIU/mL (0.300-4.200)
== END 2024-08-31 23:59 | disposition home or self-care (01) ==
LOC: MTLAB 15:54
PROVIDERS: PCP Family Medicine; Referring Provider Family Medicine; Visit Provider Family Medicine
DX: R53.83 Other fatigue (principal)
CPT/HCPCS: 36415; 80048; 84443; 85025

== ENCOUNTER 2025-02-16 13:54 | Emergency (ER) | payer MEDICARE, OTHER, SELFPAY ==
[2025-02-16] VITALS (9 sets, daily range): BP systolic 134–175; BP diastolic 80–102; PULSE 67–76; RESP 15–26; TEMP 36.4; O2SAT 93–98; BMI 28.5
--- NOTE | 2025-02-16 14:09 | CT_ITS ---
PROCEDURE: BRAIN/HEAD WITHOUT CONTRAST 02/16/2025 REASON FOR EXAM: FALL TECHNIQUE: Procedure Code: CTBR Modality: CT Procedure: BRAIN/HEAD WITHOUT CONTRAST Coronal and Sagittal reconstruction series were provided. One or more dose reduction techniques were used (e.g., Automated exposure control, adjustment of the mA and/or kV according to patient size, use of iterative reconstruction technique. FINDINGS: There is a possible focus of acute intraparenchymal hemorrhage in the periphery of the right frontotemporal region measuring a proximally 9 x 5 x 7 mm. No appreciable extra-axial hemorrhage. No mass effect or midline shift is seen. Generalized intracranial volume loss and findings compatible with chronic microvascular white matter ischemia. There is normal kearns-white matter differentiation. The posterior fossa is grossly unremarkable. The skull is unremarkable. No depressed skull fractures. Visualized paranasal sinuses are clear. The mastoid air cells show normal translucency. CT/Brain/Head without Contrast IMPRESSION: 1. Possible acute right frontotemporal intraparenchymal hemorrhage measuring 9 x 5 x 7 mm. 2. No mass effect or midline shift. No skull fractures. 3. Chronic involutional and ischemic gliotic white matter changes. Findings were verbally communicated with Dr. Andie Pelletier on 02/17/2020 at 2:51 p.m. EST. Reading [facility]
--- NOTE | 2025-02-16 14:09 | CT_ITS ---
PROCEDURE: SPINE CERVICAL WITHOUT CONTRAS 02/16/2025 REASON FOR EXAM: FALL Neck injury following a fall. TECHNIQUE: Procedure Code: CTS Modality: CT Procedure: SPINE CERVICAL WITHOUT CONTRAS Coronal and Sagittal reconstruction series were provided. One or more dose reduction techniques were used (e.g., Automated exposure control, adjustment of the mA and/or kV according to patient size, use of iterative reconstruction technique. RADIATION DOSE SUMMARY: CTDlvol: 16.64 mGy DLP: 350.14 mGycm COMPARISON: None FINDINGS: Alignment: There is straightening of the normal cervical lordosis. Vertebrae: No vertebral fracture is seen. Soft Tissues: No prevertebral soft tissue swelling is noted. Other: There is a 5.7 mm by 8.9 mm slightly irregular nodular density in the medial apical aspect of the left upper lobe. This may represent a focal area of scarring although a nodule can not be excluded. C1-2: Unremarkable. C2-3: Unremarkable C3-4: Moderate degree of disc space narrowing and spondylosis. No evidence of spinal stenosis. No fracture seen. C4-5: Moderate degree of disc space narrowing and anterior spondylosis. Uncovertebral arthrosis. Mild degree of bilateral neural foraminal stenosis slightly worse on the left side. C5-6: Moderate degree of disc space narrowing and spondylosis. Uncovertebral arthrosis and left neural foraminal stenosis. C6-7: Moderate degree of disc space narrowing with anterior spondylosis. No significant stenosis seen. C7-T1: Moderate degree of disc space narrowing. CT/Spine Cervical without Contras IMPRESSION: Multilevel degenerative changes as described. No fracture is seen. Irregular nodular density along the medial aspect of the left lung apex as desc ribed measuring 5.7 mm by 8.9 mm. This may represent a focal area of scarring although a nodule can not be excluded. Reading Location: [place] [id number]
--- NOTE | 2025-02-16 14:11 | ED.VIS.FALL ---
HPI HPI - Fall History of Present Illness Chief Complaint: Fall Detail of Chief Complaint: Fall Informant: patient Narrative Narrative: Patient presents to the emergency department after a fall that occurred prior arrival the emergency department. She presents via EMS. Patient apparently was taking food to some folks at a center. There was 1 step she had to go up and tripped and fell onto her left side. She did strike her head but no loss of consciousness. Complains of some pain to her right hand as well as wrist and head. She complains of some mild neck pain. EMS did help her stand for time. She was able to bear weight. She is not anticoagulated. [facility] Medical History (Updated 02/16/25 @ 14:[address] Trina Heredia, ) History of skin cancer Wears glasses Thyroid disease Arthritis Non-smoker History of edema History of echocardiogram History of stress test Cardiology follow-up encounter Encounter for screening for COVID-19 Asthmatic bronchitis with exacerbation Cough GERD (gastroesophageal reflux disease) Atrial fibrillation COVID-19 Femoral hernia Inguinal hernia of right side without obstruction or gangrene Depression History of colonic polyps PSVT (paroxysmal supraventricular tachycardia) Hypothyroidism Osteoporosis Essential hypertension Exacerbation of asthma Respiratory failure with hypoxia Suspected 2019 novel coronavirus infection Asthma Home Medications ?Medication ?Instructions ?Recorded ?Last Taken ?Type levocetirizine 5 mg tablet 5 mg PO DAILY ALLERGIES 02/26/16 Unknown History sertraline 50 mg tablet 50 mg PO DAILY DEPRESSION 02/26/16 Unknown History montelukast 10 mg tablet 10 mg PO DAILY allergies 08/20/19 Unknown History omeprazole 20 mg capsule,delayed 20 mg PO BID GERD 01/08/20 11/07/22 08:00 History release oxybutynin chloride 5 mg 5 mg PO BID bladder 01/08/20 Unknown History tablet,extended release 24 hr levothyroxine 25 mcg tablet 50 mcg PO DAILY thyroid 05/04/22 11/07/22 07:30 History oxycodone-acetaminophen 5 mg-325 1 tab PO Q6H PRN pain 3 days #12 10/31/22 Unknown Rx mg tablet (Percocet) tabs meloxicam 7.5 mg tablet 15 mg PO DAILY 11/05/22 Unknown History metoprolol tartrate 25 mg tablet 12.5 mg (1/2 x 25 mg) PO BID blood 08/03/24 Unknown Rx pressure #90 tabs Allergy/AdvReac Type Severity Reaction Status Date / Time meperidine (From Demerol) AdvReac Mild syncope Verified 02/16/25 13:59 Family History Father CVA (cerebral vascular accident) Cancer prostate Brother Heart disease Mother CHF (congestive heart failure) Surgical History History of inguinal hernia repair History of femoral hernia repair History of left heart catheterization (01/18/20) History of ovarian cystectomy History of bunionectomy of both great toes History of open reduction and internal fixation (ORIF) procedure Social History Smoking Status: Never smoker alcohol intake: never ROS ROS ED Review of Systems ROS Unobtainable: other Constitutional Constitutional ED: Reports lethargy; Denies chills, fever(s), sweats or weight loss Eyes Eyes: Denies blurry vision, change in vision or diplopia ENT ENT ED: Denies rhinorrhea or sore throat Cardiovascular Cardiovascular: Denies chest pain, orthopnea or racing heartbeat Respiratory/Chest Respiratory/Chest: Denies cough, dyspnea, dyspnea on exertion, orthopnea or sputum Gastrointestinal Gastrointestinal: Denies abdominal pain, diarrhea, nausea or vomiting Genitourinary Genitourinary ED: Denies dysuria, hematuria or urinary frequency Musculoskeletal Musculoskeletal: Reports other Details: Right hand, right wrist pain ; Denies arthralgias, back pain, myalgias or neck pain Integumentary Denies abscess, Abrasions or rash Neurologic Neurologic: Reports headache(s); Denies weakness Psychiatric Psychiatric: Denies anxiety, depression or suicidal thoughts Endocrine Endocrinology: Denies polydipsia, polyphagia or polyuria Hematologic/Lymphatic Hematologic/Lymphatic: Denies easy bleeding, easy bruising or lymphadenopathy Allergic/Immunologic Allergic/Immunologic ED: Denies mouth swelling, tongue swelling or urticaria EXAM Physical Exam Const Vital Signs: 02/16/25 13:55 02/16/25 13:59 Temperature 97.5 F L Temperature Source Oral Pulse Rate 72 Respiratory Rate 16 Respiratory Effort Normal Respiratory Depth Normal Respiratory Pattern Normal Blood Pressure 134/88 H Blood Pressure Mean 103 Pulse Ox 98 98 Oxygen Delivery Method Room Air Room Air Positive well nourished and well developed General Appearance ED: well developed and NAD HEENT Reports TM's clear and moist mucous membranes HEENT Narrative: Hematoma noted to posterior occiput. No bony step-offs or depressions normocephalic and atraumatic; Negative for trauma or tenderness Tympanic Membrane ED: Yes TM's clear Eyes PERRL and EOMs intact bilaterally General Eye ED: Negative for pale conjunctiva or scleral icterus Neck no lymphadenopathy, supple and no JVD Neck Narrative: Mild diffuse tenderness to the C-spine. There is no bony step-offs or depressions. Good range of motion. General: tenderness Chest Wall inspection of chest normal and palpation of chest normal Chest: Negative for tenderness Resp normal respiratory effort and clear to auscultation bilaterally Effort and Inspection: Negative for respiratory distress or pain with movement Auscultation: Negative for rhonchi, wheezes or diminished lung sounds Cardio regular rate, regular rhythm, S1 normal heart sound, S2 normal heart sound and no murmurs Peripheral Pulses: pulses 2+ throughout GI normal to inspection, nondistended, normoactive bowel sounds, soft to palpation, non-tender, non-distended and no masses Back/Spine no CVA tenderness and no thoracic nor lumbar tenderness Extremity normal to inspection Extremity Narrative: Right upper extremity-patient has small area of contusion to the posterior olecranon but no real bony tenderness on exam with normal range of motion. There is no obvious deformity. Patient also has some ecchymosis and bruising to the ulnar aspect of the lateral wrist with some mild tenderness on exam. She has tenderness to palpation over the right distal phalanx of the middle finger and ring finger. She has some superficial abrasions just lateral to the nail of the long finger. No obvious deformity. Neurovascular intact. Right hip-mild tenderness over the hip. There is no shortening or rotational deformity noted. She is neuro vastly intact distally. No pain with logrolling or straight leg raising. General Extremety ED: Negative for edema General Extremity: Negative for edema Neuro oriented x3, CN's II-XII intact bilaterally, no sensory deficits noted and gait normal Sensorium / Orientation: awake, alert, oriented to person, oriented to place and oriented to time Motor Exam: strength 5/5 throughout and strength abnormal Psych mental status grossly normal Skin no rashes or lesions noted and no wounds MDM MDM MDM Narrative Medical decision making narrative: Patient presents after a mechanical fall. She has a hematoma to the back of her head and complained of a headache. Complaint of hand pain and right wrist pain. CT scan of the brain without contrast obtained showed a small right intraparenchymal hemorrhage measuring [address] C-spine showed no fractures. X-rays of the pelvis, right wrist, right hand showed no fractures. IV line will be established. CBC and chemistries will be ordered. Discussed results with patient. She would prefer to be transferred to [facility] I will contact their transfer line for transfer. Radiography Diagnostic Testing: Clinical Impression(s) from Imaging Studies Cervical Spine CT 02/16/25 14:09 IMPRESSION: Multilevel degenerative changes as described. No fracture is seen. Irregular nodular density along the medial aspect of the left lung apex as described measuring 5.7 mm by 8.9 mm. This may represent a focal area of scarring although a nodule can not be excluded. Reading Location: [facility]- Hand X-Ray 02/16/25 14:30 IMPRESSION: Mild degree of degenerative changes at the 1st carpometacarpal joint. No fracture seen. [facility] 02/16/25 14:30 IMPRESSION: Degenerative changes. No fracture seen. [facility] W[facility] 02/16/25 14:30 IMPRESSION: NO ACUTE FRACTURE OR DISLOCATION. If acute hand or wrist trauma is suspected and initial radiographs are negative or equivocal repeat radiographs in 10-14 days MRI without IV contrast or CT without IV contrast is usually appropriate as the next imaging study. (ACR Appropriateness Criteria: Acute Hand and Wrist Trauma 2018) Reading Location: [id number] 1 view x-ray of the pelvis obtained interpreted by myself no evidence of fracture. Radiology read. Three-view x-rays of the right hand obtained interpreted by myself no evidence of fracture or dislocation. Radiology agreement. Three-view x-rays of the right wrist obtained interpreted by myself as no evidence of fracture or dislocation. Radiology agreement. Discharge Plan Triage Chief Complaint: Fall ED Provider: Trina Heredia Dx/Rx/DC Orders Clinical Impression: Fall, Closed head injury, Intracranial hemorrhage, Contusion of arm, right Prescriptions: No Action oxybutynin chloride 5 mg tablet extended release 24hr 5 mg PO BID Patient Comments: Take 1 tablet by mouth daily sertraline 50 MG tablet 50 mg PO DAILY levocetirizine 5 MG tablet 5 mg PO DAILY omeprazole 20 mg capsule,delayed release(DR/EC) 20 mg PO BID montelukast 10 MG tablet 10 mg PO DAILY levothyroxine 25 mcg tablet 50 mcg PO DAILY oxycodone-acetaminophen [Percocet] 5-325 mg tablet 1 tab PO Q6H PRN (Reason: pain) 3 Days Qty: 12 0RF meloxicam 7.5 mg tablet 15 mg PO DAILY metoprolol tartrate 25 mg tablet 12.5 mg PO BID Qty: 90 3RF Rx Instructions: Hold for heart less than 60 or systolic blood pressure less than 100 mmHg. Primary Care Provider: Nj Meraz Referrals: Nj Meraz MD [Primary Care Provider, Family Practice] Print Language: Italian Disposition Disposition: DC/Tx to Another Type of HCF
--- NOTE | 2025-02-16 14:30 | RAD_ITS ---
PROCEDURE: PELVIS 1 OR 2 VIEWS 02/16/2025 REASON FOR EXAM: FALL TECHNIQUE: Procedure Code: RADPEL Modality: DX Procedure: PELVIS 1 OR 2 VIEWS COMPARISON: None FINDINGS: Hardware: None Bones: No fracture is seen. Joints: Osteoarthritis and joint space narrowing of both hip joints in the symphysis pubis. soft tissues: Soft tissues are unremarkable. Other: RAD/Pelvis 1 or 2 Views IMPRESSION: Degenerative changes. No fracture seen. Reading Location: [place] [id number]
--- NOTE | 2025-02-16 14:30 | RAD_ITS ---
PROCEDURE: WRIST MIN 3 VIEWS 02/16/2025 REASON FOR EXAM: FALL TECHNIQUE: Procedure Code: RADWR Modality: DX Procedure: WRIST MIN 3 VIEWS Laterality: Right COMPARISON: None. FINDINGS: BONES: No acute fracture or focal osseous lesion. Generalized decrease in bone density. JOINTS: No dislocation. Mild-moderate arthritic changes of the 1st carpometacarpal joint. 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 SOFT TISSUES: The soft tissues are unremarkable. RAD/Wrist min 3 Views IMPRESSION: NO ACUTE FRACTURE OR DISLOCATION. If acute hand or wrist trauma is suspected an d initial radiographs are negative or equivocal repeat radiographs in 10-14 days MRI without IV contrast or CT without IV contr ast is usually appropriate as the next imaging study. (ACR Appropriateness Criteria: Acute Hand and Wrist Trauma 2018) Reading Location: [id number]
--- NOTE | 2025-02-16 14:30 | RAD_ITS ---
PROCEDURE: HAND MIN 3 VIEWS 02/16/2025 REASON FOR EXAM: FALL TECHNIQUE: Procedure Code: GIDEON Modality: DX Procedure: HAND MIN 3 VIEWS Laterality: Right hand. COMPARISON: None FINDINGS: Bones: No fracture is seen. Joints: Mild degree of degenerative changes of the 1st carpometacarpal joint. Soft tissues: Soft tissues are unremarkable. Other: RAD/Hand Min 3 Views IMPRESSION: Mild degree of degenerative changes at the 1st carpometacarpal joint. No fract ure seen. Reading Location: [place] [id number]
[2025-02-16 15:12] LABS: Hematocrit 39.6 % (37-47); Hemoglobin 13.1 g/dL (12.0-15.0); Immature Granulocytes Count 0.010 X10^3/uL (0.0-0.0); Mean Corp Hgb Conc 33.1 g/dL (32-36); Mean Corpuscular Volume 88.2 fL (81-99); Mean Platelet Vol. 10.2 fl (6.2-12.0); NRBC Flagged by Analyzer 0 % (0-5); Platelet Count 174 K/mm3 (150-450); RBC Distribution Width CV 14.7 % (11.6-14.6); RBC Distribution Width SD 47.4 fl (35.1-43.9); Red Blood Count 4.49 M/mm3 (4.2-5.4); White Blood Count 5.6 K/mm3 (4.4-11.0)
[2025-02-16 17:02] LABS: Anion Gap 12 (5-15); BUN 17 mg/dL (4-19); BUN/Creat Ratio 18.6 RATIO (10-20); Calcium,Total 9.8 mg/dL (7.6-11.0); Carbon Dioxide 23.3 mmol/L (21.0-32.0); Chloride 107 mmol/L (98-108); Estimated Creatinine Clearance 56.01 ml/min (50-250); Glucose 75 mg/dL (70-99); Potassium 4.1 mmol/L (3.3-5.1)
== END 2025-02-16 17:30 | disposition short-term general hospital (02) ==
PROVIDERS: Emergency Provider Emergency Medicine; PCP Family Medicine; Visit Provider Emergency Medicine
DX: S06.300A Unspecified focal traumatic brain injury without loss of consciousness, initial encounter (principal); I48.91 Unspecified atrial fibrillation; I10 Essential (primary) hypertension; Z23 Encounter for immunization; S40.021A Contusion of right upper arm, initial encounter; S50.01XA Contusion of right elbow, initial encounter; S60.211A Contusion of right wrist, initial encounter; S60.412A Abrasion of right middle finger, initial encounter; W10.9XXA Fall (on) (from) unspecified stairs and steps, initial encounter; Z79.890 Hormone replacement therapy; Z79.899 Other long term (current) drug therapy
CPT/HCPCS: 70450; 72125; 72170; 73110; 73130; 80048; 85025; 90471; 90715; 96374; 99285; A4216